=== PATIENT | male | born 1945 | race Caucasian/White ===

== ENCOUNTER → 2020-01-27 08:59 | Outpatient (BNVA) | payer MEDICARE, SELFPAY | PROVIDERS: PCP Internal Medicine; Referring Provider Internal Medicine; Visit Provider Dietitian, Registered | DX: Z76.89 Persons encountering health services in other specified circumstances (principal) ==

== ENCOUNTER 2020-04-27 08:25 | Outpatient (REF) | payer MEDICARE, SELFPAY ==
[2020-04-27 09:08] LABS: MANUAL DIFF FLAG NO
[2020-04-27 09:16] LABS: Basophils Absolute Auto 0.1 X10*3/uL (0.0-0.2); Basophils Percent Auto 0.8 % (0-2); Eosinophils Absolute Auto 0.1 X10*3/uL (0.0-0.4); Eosinophils Percent Auto 1.6 % (0-4); Hematocrit 47.1 % (42-52); Hemoglobin 15.6 g/dl (14.0-18.0); Imm Gran Abs Auto 0.04 X10*3/uL (0.00-0.03); Imm Gran Pct Auto 0.6 % (0.0-0.4); Lymphocytes Absolute Auto 1.1 X10*3/uL (1.2-4.9); Lymphocytes Percent Auto 17.6 % (20-40); Mean Corpuscular HGB Conc 33.1 g/dl (31.0-36.0); Mean Corpuscular Hemoglobin 29.7 pg (27.0-33.0); Mean Corpuscular Volume 89.5 fL (80-98); Mean Platelet Volume 9.2 fL (9.4-12.4); Monocytes Absolute Auto 0.7 X10*3/uL (0.1-1.2); Neutrophils Absolute Auto 4.2 X10*3/uL (2.0-8.3); Neutrophils Percent Auto 68.4 % (45-73); Platelet Count 217 X10*3/uL (160-400); Red Blood Count 5.26 X10*6/uL (4.60-5.80); Red Cell Distribution Width 13.5 % (11.0-16.0); White Blood Count 6.2 X10*3/uL (4.8-10.8)
[2020-04-27 09:43] LABS: Alanine Aminotransferase 21 U/L (0-40); Albumin Level 4.3 g/dL (3.5-5.0); Alkaline Phosphatase 61 U/L (39-117); Anion Gap 14 (12-20); Aspartate Amino Transferase 21 U/L (5-37); Bilirubin Total 1.6 mg/dL (0.0-1.0); Blood Urea Nitrogen 22 mg/dL (9-16); Calcium 9.1 mg/dL (8.4-10.2); Carbon Dioxide 29 mmol/L (22-29); Chloride 100 mmol/L (96-108); Cholesterol 177 mg/dL; Estimated Glomerular Filt Rate 51; Glucose Random 129 mg/dL (60-115); HDL Cholesterol 34 mg/dL; LDL Cholesterol Calculated 100 mg/dl; Potassium 4.3 mmol/l (3.3-5.1); Sodium 139 mmol/L (135-145); Total Protein 7.9 g/dL (6.5-8.0); Triglycerides 215 mg/dL
[2020-04-27 10:01] LABS: Creatinine Urine 162.92 mg/dL; Microalbum/Creatinine Ratio Ur 21.4 ug/mg cr
[2020-04-27 10:05] LABS: Free T4 (Free Thyroxine) 1.03 ng/dL (0.71-1.85); Thyroid Stimulating Hormone 3.24 uIU/mL (0.32-4.0)
[2020-04-27 10:12] LABS: Digoxin < 0.3 ng/mL (0.8-2.0)
[2020-04-27 10:21] LABS: Folate 6.5 ng/mL (> or = 4.0); Vitamin B12 597 pg/mL (200-900)
== END 2020-04-27 08:26 | disposition home or self-care (01) ==
LOC: HO.LAB 08:25
PROVIDERS: PCP Internal Medicine; Visit Provider Internal Medicine
DX: E78.00 Pure hypercholesterolemia, unspecified (principal); I48.0 Paroxysmal atrial fibrillation; E11.65 Type 2 diabetes mellitus with hyperglycemia; I42.9 Cardiomyopathy, unspecified
CPT/HCPCS: 36415; 80053; 80061; 80162; 82043; 82607; 82746; 84439; 84443; 85025

== ENCOUNTER → 2020-07-19 09:53 | Outpatient (BNVA) | payer MEDICARE, SELFPAY | PROVIDERS: PCP Internal Medicine; Visit Provider Dietitian, Registered | DX: E11.65 Type 2 diabetes mellitus with hyperglycemia (principal) | CPT/HCPCS: 97803 ==

== ENCOUNTER 2020-11-10 10:20 | Outpatient (REF) | payer MEDICARE, SELFPAY ==
[2020-11-10 10:29] LABS: MANUAL DIFF FLAG NO
[2020-11-10 10:33] LABS: Basophils Percent Auto 0.6 % (0-2); Eosinophils Absolute Auto 0.1 X10*3/uL (0.0-0.4); Eosinophils Percent Auto 1.6 % (0-4); Hematocrit 42.9 % (42-52); Hemoglobin 14.1 g/dl (14.0-18.0); Imm Gran Abs Auto 0.02 X10*3/uL (0.00-0.03); Imm Gran Pct Auto 0.4 % (0.0-0.4); Lymphocytes Absolute Auto 0.8 X10*3/uL (1.2-4.9); Lymphocytes Percent Auto 15.4 % (20-40); Mean Corpuscular HGB Conc 32.9 g/dl (31.0-36.0); Mean Corpuscular Hemoglobin 30.5 pg (27.0-33.0); Mean Corpuscular Volume 92.9 fL (80-98); Mean Platelet Volume 9.4 fL (9.4-12.4); Monocytes Absolute Auto 0.5 X10*3/uL (0.1-1.2); Monocytes Percent Auto 9.6 % (2-11); Neutrophils Absolute Auto 3.7 X10*3/uL (2.0-8.3); Neutrophils Percent Auto 72.4 % (45-73); Platelet Count 224 X10*3/uL (160-400); Red Blood Count 4.62 X10*6/uL (4.60-5.80); Red Cell Distribution Width 13.3 % (11.0-16.0); White Blood Count 5.1 X10*3/uL (4.8-10.8)
[2020-11-10 11:18] LABS: Alanine Aminotransferase 27 U/L (0-40); Albumin Level 3.8 g/dL (3.5-5.0); Alkaline Phosphatase 66 U/L (39-117); Anion Gap 13 (12-20); Aspartate Amino Transferase 25 U/L (5-37); Bilirubin Total 1.4 mg/dL (0.0-1.0); Blood Urea Nitrogen 18 mg/dL (9-16); Carbon Dioxide 29 mmol/L (22-29); Chloride 101 mmol/L (96-108); Estimated Glomerular Filt Rate 53; Glucose Random 203 mg/dL (60-115); Potassium 4.1 mmol/L (3.3-5.1); Sodium 139 mmol/L (135-145)
[2020-11-10 11:20] LABS: Estimated Average Glucose 306 mg/dL; Hemoglobin A1c % 12.3 %
[2020-11-10 11:38] LABS: T4 Thyroxine 7.5 ug/dL (4.5-12.0); Thyroid Stimulating Hormone 1.38 uIU/mL (0.32-4.0)
[2020-11-11 17:06] LABS: NT-proBNP 235 pg/mL
== END 2020-11-10 10:21 | disposition home or self-care (01) ==
LOC: HO.HVNA 10:20
PROVIDERS: Referring Provider Nurse Practitioner Family; Visit Provider Internal Medicine
DX: F41.1 Generalized anxiety disorder (principal); J45.909 Unspecified asthma, uncomplicated; E66.9 Obesity, unspecified; G47.33 Obstructive sleep apnea (adult) (pediatric); I48.91 Unspecified atrial fibrillation; K21.9 Gastro-esophageal reflux disease without esophagitis; E11.9 Type 2 diabetes mellitus without complications; I42.9 Cardiomyopathy, unspecified; N28.89 Other specified disorders of kidney and ureter
CPT/HCPCS: 36415; 80053; 83036; 83880; 84436; 84443; 85025

== ENCOUNTER 2020-11-16 11:34 | Outpatient (REF) | payer MEDICARE, SELFPAY ==
[2020-11-16 12:23] LABS: Anion Gap 13 (12-20); Blood Urea Nitrogen 18 mg/dL (9-16); Calcium 9.1 mg/dL (8.4-10.2); Carbon Dioxide 25 mmol/L (22-29); Chloride 103 mmol/L (96-108); Estimated Glomerular Filt Rate 51; Phosphorus 3.5 mg/dL (2.7-4.5); Sodium 137 mmol/L (135-145)
[2020-11-16 13:15] LABS: Renal w Reflex Lab Use Only Order verified
== END 2020-11-16 11:35 | disposition home or self-care (01) ==
LOC: HO.LNP 11:34
PROVIDERS: Visit Provider Internal Medicine Geriatric Medicine
DX: N18.30 Chronic kidney disease, stage 3 unspecified (principal)
CPT/HCPCS: 80051; 82310; 82565; 84100; 84520

== ENCOUNTER → 2020-11-24 09:27 | Outpatient (BNVA) | payer MEDICARE, SELFPAY | PROVIDERS: PCP Internal Medicine; Visit Provider Dietitian, Registered | DX: E11.65 Type 2 diabetes mellitus with hyperglycemia (principal) | CPT/HCPCS: 97803 ==

== ENCOUNTER → 2021-02-14 10:10 | Outpatient (BNVA) | payer MEDICARE, SELFPAY | PROVIDERS: PCP Internal Medicine; Visit Provider Dietitian, Registered | DX: E11.65 Type 2 diabetes mellitus with hyperglycemia (principal) | CPT/HCPCS: 97803 ==

== ENCOUNTER 2021-05-10 08:37 | Outpatient (REF) | payer MEDICARE, SELFPAY ==
[2021-05-10 09:16] LABS: MANUAL DIFF FLAG NO
[2021-05-10 10:16] LABS: Basophils Percent Auto 0.6 % (0-2); Eosinophils Absolute Auto 0.1 X10*3/uL (0.0-0.4); Eosinophils Percent Auto 1.7 % (0-4); Hematocrit 47.6 % (42.0-52.0); Hemoglobin 15.3 g/dl (14.0-18.0); Imm Gran Abs Auto 0.04 X10*3/uL (0.00-0.03); Imm Gran Pct Auto 0.6 % (0.0-0.4); Lymphocytes Percent Auto 16.1 % (20-40); Mean Corpuscular HGB Conc 32.1 g/dl (31.0-36.0); Mean Corpuscular Volume 90.3 fL (80.0-98.0); Mean Platelet Volume 9.2 fL (9.4-12.4); Monocytes Absolute Auto 0.7 X10*3/uL (0.1-1.2); Monocytes Percent Auto 10.9 % (2-11); Neutrophils Absolute Auto 4.5 x10*3/uL (2.0-8.3); Neutrophils Percent Auto 70.1 % (45-73); Platelet Count 231 X10*3/uL (160-400); Red Blood Count 5.27 X10*6/uL (4.60-5.80); Red Cell Distribution Width 14.6 % (11.0-16.0); White Blood Count 6.5 X10*3/uL (4.8-10.8)
[2021-05-10 10:33] LABS: B Type Natriuretic Peptide 48 pg/mL (<100)
[2021-05-10 10:35] LABS: Estimated Average Glucose 140 mg/dL; Hemoglobin A1c % 6.5 %
[2021-05-10 10:45] LABS: Alanine Aminotransferase 18 U/L (0-40); Albumin Level 4.3 g/dL (3.5-5.0); Alkaline Phosphatase 61 U/L (39-117); Anion Gap 14 (12-20); Aspartate Amino Transferase 18 U/L (5-37); Bilirubin Total 1.6 mg/dL (0.0-1.0); Blood Urea Nitrogen 25 mg/dL (9-16); Calcium 9.6 mg/dL (8.4-10.2); Carbon Dioxide 27 mmol/L (22-29); Chloride 103 mmol/L (96-108); Cholesterol 174 mg/dL; Estimated Glomerular Filt Rate 47; Glucose Random 122 mg/dL (60-115); HDL Cholesterol 31 mg/dL; LDL Cholesterol Calculated 109 mg/dl; Potassium 4.2 mmol/L (3.3-5.1); Sodium 140 mmol/L (135-145); Triglycerides 172 mg/dL
[2021-05-10 11:06] LABS: Free T4 (Free Thyroxine) 0.96 ng/dL (0.71-1.85); Thyroid Stimulating Hormone 2.16 uIU/mL (0.32-4.0)
[2021-05-10 11:10] LABS: Creatinine Urine 163.32 mg/dL
== END 2021-05-10 08:38 | disposition home or self-care (01) ==
LOC: HO.LAB 08:37
PROVIDERS: PCP Internal Medicine; Visit Provider Internal Medicine Nephrology
DX: E11.65 Type 2 diabetes mellitus with hyperglycemia (principal); I48.0 Paroxysmal atrial fibrillation; E78.00 Pure hypercholesterolemia, unspecified; N18.31 Chronic kidney disease, stage 3a
CPT/HCPCS: 36415; 80053; 80061; 83036; 83880; 84439; 84443; 85025

== ENCOUNTER → 2021-08-15 09:51 | Outpatient (BNVA) | payer MEDICARE, SELFPAY | PROVIDERS: PCP Internal Medicine; Visit Provider Dietitian, Registered | DX: E11.65 Type 2 diabetes mellitus with hyperglycemia (principal) | CPT/HCPCS: 97803 ==

== ENCOUNTER 2021-08-18 10:42 | Outpatient (REF) | payer MEDICARE, SELFPAY ==
--- NOTE | ~2021-08-18 | US_ITS ---
EXAMINATION: US VENOUS ULTRASOUND WITH DOPPLER LOWER EXTREMITY, LEFT CLINICAL INFORMATION: Left ankle effusion. COMPARISON: None TECHNIQUE: Ultrasound of the deep veins is performed from the hip to the calf with compression sonography and color and pulse Doppler assessment. Spectral analysis with color-flow imaging is performed. FINDINGS: There is normal venous compression and respiratory variation and augmented flow. The visualized common femoral vein, superficial femoral vein, profunda femoral vein, popliteal vein, and the trifurcation region shows no evidence of deep venous thrombosis. No left popliteal cyst. The subcutaneous soft tissues are unremarkable. If the patient's symptoms persist, followup ultrasound in 5 days 7 days might be of value to exclude proximal propagation from a non-visualized calf vein. US/US venous duplex LE LT IMPRESSION: No DVT demonstrated in the left lower extremity.
[2021-08-18 12:35] LABS: Uric Acid 7.9 mg/dL (3.4-7.0)
[2021-08-18 12:38] LABS: Alanine Aminotransferase 17 U/L (0-40); Albumin Level 4.1 g/dL (3.5-5.0); Alkaline Phosphatase 61 U/L (39-117); Anion Gap 15 (12-20); Aspartate Amino Transferase 16 U/L (5-37); Bilirubin Total 1.7 mg/dL (0.0-1.0); Blood Urea Nitrogen 20 mg/dL (9-16); Calcium 9.5 mg/dL (8.4-10.2); Carbon Dioxide 25 mmol/L (22-29); Chloride 105 mmol/L (96-108); Cholesterol 111 mg/dL; Estimated Glomerular Filt Rate 54; Glucose Random 170 mg/dL (60-115); HDL Cholesterol 31 mg/dL; LDL Cholesterol Calculated 50 mg/dl; Potassium 4.5 mmol/L (3.3-5.1); Sodium 140 mmol/L (135-145); Total Protein 7.5 g/dL (6.5-8.0); Triglycerides 151 mg/dL
== END 2021-08-18 10:43 | disposition home or self-care (01) ==
LOC: HO.US 10:42
PROVIDERS: PCP Internal Medicine; Visit Provider Nurse Practitioner Family
DX: M25.472 Effusion, left ankle (principal); I82.402 Acute embolism and thrombosis of unspecified deep veins of left lower extremity; E78.00 Pure hypercholesterolemia, unspecified
CPT/HCPCS: 36415; 80053; 80061; 84550; 93971

== ENCOUNTER 2021-09-14 11:27 | Outpatient (REF) | payer MEDICARE, SELFPAY ==
[2021-09-14 12:40] LABS: Uric Acid 10.4 mg/dL (3.4-7.0)
[2021-09-14 12:48] LABS: Erythrocyte Sedimentation Rate 52 MM/HR (0-15)
== END 2021-09-14 11:28 | disposition home or self-care (01) ==
LOC: HO.LAB 11:27
PROVIDERS: Absent Provider Podiatrist; PCP Internal Medicine; Visit Provider Internal Medicine
DX: M10.072 Idiopathic gout, left ankle and foot (principal)
CPT/HCPCS: 36415; 84550; 85652

== ENCOUNTER 2021-10-07 09:15 | Outpatient (REF) | payer MEDICARE, SELFPAY ==
--- NOTE | ~2021-10-07 | XR_ITS ---
EXAMINATION: XR ANKLE, LEFT CLINICAL INFORMATION: M25.472 - Effusion, left ankle COMPARISON: None TECHNIQUE: Left ankle is imaged in 4 views. FINDINGS: Lateral view shows irregularity proximal upper tarsal navicular with increased attenuation, suggesting sequela from prior injury, possibly subacute or older. There are no prior foot radiographs to confirmed chronicity. Recommend correlation with clinical impression and additional imaging with foot radiographs to further characterize. There is soft tissue swelling, greater on medial side. The malleoli are intact and the ankle mortise is symmetric. Talar dome appears normal and there is no visible osteochondral lesion. No tibiotalar joint narrowing, erosive change, or chondrocalcinosis. No visible ankle capsular effusion, although assessment limited areas lateral view slightly oblique. The posterior malleolus appears normal. There are posterior and plantar calcaneal spurs. PSA to contact covering provider. XR/XR ankle LT min 3V IMPRESSION: -Abnormal tarsal navicular with increased attenuation and irregularity suggesting sequela from prior trauma, indeterminate age. Recommend correlation with clinical impression and foot radiographs to further characterize. -Soft tissue swelling, greater medial side. The malleoli are intact. Ankle mortise is symmetric. Talar dome unremarkable. -Posterior and plantar calcaneal spurs.
== END 2021-10-07 09:16 | disposition home or self-care (01) ==
LOC: HO.XRAY 09:15
PROVIDERS: PCP Internal Medicine; Visit Provider Internal Medicine
DX: M25.472 Effusion, left ankle (principal)
CPT/HCPCS: 73610

== ENCOUNTER → 2021-11-24 09:16 | Outpatient (BNVA) | payer MEDICARE, SELFPAY | PROVIDERS: PCP Internal Medicine; Visit Provider Surgery Vascular Surgery | DX: I83.12 Varicose veins of left lower extremity with inflammation (principal); M25.562 Pain in left knee; M25.561 Pain in right knee; M25.572 Pain in left ankle and joints of left foot; M25.571 Pain in right ankle and joints of right foot | CPT/HCPCS: 99202 ==

== ENCOUNTER 2021-11-29 07:21 | Outpatient (REF) | payer MEDICARE, SELFPAY ==
--- NOTE | ~2021-11-29 | XR_ITS ---
EXAMINATION: XR ANKLE, LEFT CLINICAL INFORMATION: Left ankle pain. COMPARISON: 10/07/2021 TECHNIQUE: AP, lateral, and mortise views of the left ankle. FINDINGS: There is a large amount of edema seen about the lower leg and foot. There is again noted to be a comminuted fracture of the dorsal aspect of the navicular with what appears to be some increased bony absorption of fracture fragment as well as some loss of width with some increased sclerosis involving the navicular since study of 10/07/2021. There is no evidence of bony fusion of fracture fragments. There is malalignment of the tarsal bones with what appears to be some plantar subluxation of the cuneiforms by approximately 1 cm in respect to the navicular and dorsal tarsal bone. There is also question of a distal dorsal nondisplaced navicular fracture versus possible dorsal cortical erosion/resorption. The ankle mortise appears intact. Plantar and Achilles calcaneal spurs present. 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
== END 2021-11-29 07:22 | disposition home or self-care (01) ==
LOC: HO.HOSX 07:21
PROVIDERS: Visit Provider Physician Assistant
DX: M19.072 Primary osteoarthritis, left ankle and foot (principal)
CPT/HCPCS: 73610; 99202

== ENCOUNTER 2021-12-22 08:29 | Outpatient (REF) | payer MEDICARE, SELFPAY ==
[2021-12-22 09:53] LABS: Anion Gap 18 (12-20); Blood Urea Nitrogen 19 mg/dL (9-16); Calcium 9.4 mg/dL (8.4-10.2); Carbon Dioxide 24 mmol/L (22-29); Chloride 105 mmol/L (96-108); Estimated Glomerular Filt Rate 60; Potassium 4.6 mmol/L (3.3-5.1); Sodium 142 mmol/L (135-145)
== END 2021-12-22 08:30 | disposition home or self-care (01) ==
LOC: HO.LAB 08:29
PROVIDERS: PCP Internal Medicine; Visit Provider Internal Medicine Nephrology
DX: I12.9 Hypertensive chronic kidney disease with stage 1 through stage 4 chronic kidney disease, or unspecified chronic kidney disease (principal); N18.31 Chronic kidney disease, stage 3a
CPT/HCPCS: 36415; 80051; 82310; 82565; 84520

== ENCOUNTER 2022-01-09 09:43 | Outpatient (REF) | payer MEDICARE, SELFPAY ==
[2022-01-09 11:09] LABS: Uric Acid 9.6 mg/dL (3.4-7.0)
== END 2022-01-09 09:44 | disposition home or self-care (01) ==
LOC: HO.LAB 09:43
PROVIDERS: PCP Internal Medicine; Visit Provider Internal Medicine Nephrology
DX: N18.31 Chronic kidney disease, stage 3a (principal)
CPT/HCPCS: 36415; 84550

== ENCOUNTER 2022-01-12 12:49 | Outpatient (REF) | payer MEDICARE, SELFPAY ==
--- NOTE | ~2022-01-12 | US_ITS ---
EXAMINATION: US LOWER EXTREMITY VENOUS (REFLUX EXAM), BILATERAL CLINICAL INDICATION: Chronic venous insufficiency with lower extremity varicose veins COMPARISON: None. TECHNIQUE: Color flow triplex imaging and compression Doppler was performed to evaluate both the deep and the superficial systems bilaterally. To evaluate the superficial system, the examination was performed in the upright position. Color-flow Doppler ultrasound and compression ultrasound were utilized. In addition, maneuvers were utilized to demonstrate reflux. FINDINGS: 1. DEEP VENOUS ULTRASOUND OF THE RIGHT LOWER EXTREMITY: Common Femoral Vein: Compressible, normal respiratory variation and augmented flow. Femoral Vein: Compressible, normal color flow and augmentation. Popliteal Vein: Compressible, normal augmentation. Deep Reflux: There is no evidence of reflux in the deep system in either the common femoral vein or the popliteal vein. There is no evidence of a Roldan's cyst. 2. SUPERFICIAL ULTRASOUND WITH DOPPLER OF RIGHT LOWER EXTREMITY: GREAT SAPHENOUS VEIN: Saphenofemoral Junction: 0.67 cm; Reflux: 0 ms Proximal Thigh: 0.56 cm; Reflux: 0 ms Mid Thigh: 0.7 cm; Reflux: 812 ms Above Knee: 0.4 cm; Reflux: 0 ms At Knee: 0.34 cm; Reflux: 0 ms Below Knee: 0.41 cm; Reflux: 3368 ms Mid Calf: 0.29 cm; Reflux: 3372 ms Ankle: 0.43 cm; Reflux: 0 ms DUPLICATED MEDIAL GREAT SAPHENOUS VEIN: Diameter: None Imaged Reflux: NA DUPLICATED LATERAL GREAT SAPHENOUS VEIN: Diameter: 0.3 cm Reflux: None SMALL SAPHENOUS VEIN: Proximal: 0.3 cm; Reflux: 0 ms Distal: 0.2 cm; Reflux: 0 ms VEIN OF GIACOMINI: None Imaged. PERFORATORS: Location: Mid thigh Size: 0.4 cm Reflux: 3328 VARICOSITIES: Location: Proximal thigh and proximal calf Size: 0.3 to 0.5 cm Reflux: Ranging from 3076 - 2412 ms 3. DEEP VENOUS ULTRASOUND OF THE LEFT LOWER EXTREMITY: Common Femoral Vein: Compressible, normal respiratory variation and augmented flow. Femoral Vein: Compressible, normal color flow and augmentation. Popliteal Vein: Compressible, normal augmentation. Deep Reflux: There is no evidence of reflux in the deep system in either the common femoral vein or the popliteal vein. There is no evidence of a Roldan's cyst. 4. SUPERFICIAL ULTRASOUND WITH DOPPLER OF LEFT LOWER EXTREMITY: GREAT SAPHENOUS VEIN: Saphenofemoral Junction: 0.7 cm; Reflux: 0 ms Proximal Thigh: 0.5 cm; Reflux: 0 ms Mid Thigh: 0.5 cm; Reflux: 1928 ms Above Knee: 0.5 cm; Reflux: 3276 ms At Knee: 0.4 cm; Reflux: 0 ms Below Knee: 0.47 cm; Reflux: 3184 ms Mid Calf: 0.37 cm; Reflux: 3256 ms Ankle: 0.46 cm; Reflux: 3420 ms DUPLICATED MEDIAL GREAT SAPHENOUS VEIN: Diameter: None Imaged Reflux: NA DUPLICATED LATERAL GREAT SAPHENOUS VEIN: Diameter: 0.3 cm Reflux: None SMALL SAPHENOUS VEIN: Proximal: 0.4 cm; Reflux: 0 ms Distal: 0.1 cm; Reflux: 0 ms VEIN OF GIACOMINI: None Imaged. PERFORATORS: Location: Mid calf Size: 0.3 to 0.5 cm Reflux: 1140 ms VARICOSITIES: Location: Proximal thigh and throughout the calf Size: 0.2 to 0.4 cm Reflux: Greater than 3 seconds US/US venous duplex LE BI IMPRESSION: Right: Severe reflux within the right great saphenous vein below the knee with multiple varicosities as described above Left: Severe reflux and within the left great saphenous vein in the thigh and below the knee with multiple varicosities as described above
== END 2022-01-12 12:50 | disposition home or self-care (01) ==
LOC: HO.US 12:49
PROVIDERS: Visit Provider Surgery Vascular Surgery
DX: I83.12 Varicose veins of left lower extremity with inflammation (principal)
CPT/HCPCS: 93970

== ENCOUNTER → 2022-01-19 10:59 | Outpatient (BNVA) | payer MEDICARE, SELFPAY | PROVIDERS: PCP Internal Medicine; Visit Provider Surgery Vascular Surgery | DX: I83.12 Varicose veins of left lower extremity with inflammation (principal) | CPT/HCPCS: 99212 ==

== ENCOUNTER → 2022-01-27 07:26 | Outpatient (BNVA) | payer MEDICARE, SELFPAY | PROVIDERS: PCP Internal Medicine; Visit Provider Surgery Vascular Surgery | DX: I83.12 Varicose veins of left lower extremity with inflammation (principal); E11.10 Type 2 diabetes mellitus with ketoacidosis without coma; E11.65 Type 2 diabetes mellitus with hyperglycemia | CPT/HCPCS: 36482 ==

== ENCOUNTER 2022-01-30 10:02 | Outpatient (REF) | payer MEDICARE, SELFPAY ==
--- NOTE | ~2022-01-30 | US_ITS ---
EXAMINATION: US VENOUS ULTRASOUND WITH DOPPLER LOWER EXTREMITY, LEFT CLINICAL INFORMATION: This a 76-year-old male who is 3 days status post left VenaSeal closure of the great saphenous vein. COMPARISON: None TECHNIQUE: Ultrasound of the deep veins is performed from the hip to the calf with compression sonography and color and pulse Doppler assessment. Spectral analysis with color-flow imaging is performed. FINDINGS: There is normal venous compression and respiratory variation and augmented flow. The visualized common femoral vein, superficial femoral vein, profunda femoral vein, popliteal vein, and the trifurcation region shows no evidence of deep venous thrombosis. There is no significant popliteal fossa cyst. The great saphenous vein is closed beginning 3.3 cm below the saphenofemoral junction. There is no extension into the common femoral vein. US/US venous duplex LE LT IMPRESSION: 1. No DVT demonstrated in the left lower extremity. 2. The left great saphenous vein appears closed 3.3 cm below the saphenofemoral junction.
== END 2022-01-30 10:03 | disposition home or self-care (01) ==
LOC: HO.US 10:02
PROVIDERS: Visit Provider Surgery Vascular Surgery
DX: M79.605 Pain in left leg (principal)
CPT/HCPCS: 93971

== ENCOUNTER → 2022-02-09 09:40 | Outpatient (BNVA) | payer MEDICARE, SELFPAY | PROVIDERS: PCP Internal Medicine; Visit Provider Surgery Vascular Surgery | DX: I83.11 Varicose veins of right lower extremity with inflammation (principal); I83.12 Varicose veins of left lower extremity with inflammation | CPT/HCPCS: 99212 ==

== ENCOUNTER → 2022-02-15 10:04 | Outpatient (BNVA) | payer MEDICARE, SELFPAY | PROVIDERS: PCP Internal Medicine; Visit Provider Dietitian, Registered | DX: E11.65 Type 2 diabetes mellitus with hyperglycemia (principal) | CPT/HCPCS: 97803 ==

== ENCOUNTER 2022-03-05 11:03 | Emergency (ER) | payer MEDICARE, SELFPAY ==
--- NOTE | ~2022-03-05 | XR_ITS ---
EXAMINATION: XR CHEST CLINICAL INFORMATION: Cough and weakness. COMPARISON: Chest 09/21/2017 TECHNIQUE: 2 views of the chest were obtained. FINDINGS: The lungs are hyperinflated but clear. The heart size and pulmonary vascularity is normal. No gross bony abnormality. XR/XR chest 2V IMPRESSION: Hyperinflated lungs without acute process. No change since 2018
[2022-03-05 12:21] VITALS: BP 134/59; PULSE 66; RESP 18; TEMP 35.8; O2SAT 94; BMI 34.8
--- NOTE | 2022-03-05 12:23 | ED_ITS ---
HPI - General Adult General Chief complaint: Upper Respiratory Symptoms Stated complaint: coughing, sinus issues, diabetic Time Seen by Provider: 03/05/22 14:01 Source: patient and family () Mode of arrival: wheelchair Limitations: no limitations History of Present Illness HPI narrative: Patient is a 76 year old assigned male at with a history of DM presenting to the emergency department today with a cough and sinus pain. Patient states that since yesterday, he has been having sinus pain and a cough. Patient denies any dizziness, lightheadedness, abdominal pain, nausea, vomiting, fever, chills, blurry vision, double vision, loss of vision, chest pain, difficulty breathing, shortness of breath, back pain, night sweats, pain with urination, increased urinary frequency, increased urinary urgency, blood in his urine or stool, syncope or a near syncopal episode, recent trauma or falls, bowel incontinence, bladder incontinence, bowel retention, bladder retention, or any other complaint s at this time. Onset (ago): day(s) (1) Severity: mild Relieving factors: none Exacerbating factors: none Associated symptoms: cough Treatments prior to arrival: none Related Data Home Medications Medication Instructions Recorded Confirmed acetaminophen 650 mg 650 mg PO Q8H 01/30/20 10/06/21 tablet,extended release (Tylenol 8 Hour) albuterol sulfate 90 mcg/actuation 2 puff inhalation Q4-6H PRN 01/30/20 10/06/21 aerosol inhaler (ProAir HFA) digoxin 125 mcg (0.125 mg) tablet 125 mcg PO DAILY 01/30/20 10/06/21 (Digox) docusate sodium 100 mg capsule 100 mg PO DAILY 01/30/20 10/06/21 (Colace) allopurinol 100 mg tablet 100 mg PO DAILY 02/09/22 Previous Rx's Medication Instructions Recorded flash glucose scanning reader #1 ea 11/11/20 (FreeStyle Henry 14 Day [place]) flash glucose sensor (FreeStyle #6 kits 11/11/20 Henry 14 Day Sensor kit) calcium carbonate 600 mg calcium 600 mg PO DAILY #90 tabs 05/17/21 (1,500 mg) tablet bisoprolol fumarate 5 mg tablet 5 mg PO DAILY 90 days #90 tabs 05/20/21 atorvastatin 10 mg tablet 10 mg PO BEDTIME 30 days #90 tabs 07/01/21 torsemide 10 mg tablet 20 mg PO DAILY #180 tabs 07/01/21 amiodarone 200 mg tablet 200 mg PO DAILY #90 tabs 07/26/21 pen needle, diabetic 31 gauge x ##4 08/30/21/ (BD Ultra-Fine Mini Pen Needle) diclofenac sodium 1 % topical gel 2 g topical QID #100 grams 10/06/21 (Arthritis Pain (diclofenac)) rollator #1 ea 10/07/21 rollator #1 ea 10/11/21 insulin glargine 100 unit/mL (3 40 unit (0.4 mL) subcut QPM #45 mL 10/14/21 mL) subcutaneous pen (Lantus Solostar U-100 Insulin) apixaban 5 mg tablet (Eliquis) 5 mg PO BID #180 tabs 12/29/21 cholecalciferol (vitamin D3) 25 25 mcg PO DAILY #90 caps 12/29/21 mcg (1,000 unit) capsule (Vitamin D3) insulin lispro 100 unit/mL 5 unit (0.05 mL) subcut TID #15 mL 01/04/22 subcutaneous pen (Humalog KwikPen (U-100) Insulin) hydrocortisone 2.5 % lotion 1 appl topical TID PRN skin 02/01/22 irritation 14 days #118 mL lidocaine 5 % topical ointment 1 appl topical BID PRN pain #50 02/01/22 grams lisinopril 5 mg tablet 5 mg PO DAILY #90 tabs 02/01/22 eplerenone 25 mg tablet 25 mg PO DAILY 90 days #90 tabs 02/08/22 benzonatate 100 mg capsule 100 mg PO BID PRN cough 7 days #14 03/05/22 caps prednisone 20 mg tablet 20 mg PO DAILY 7 days #7 tabs 03/05/22 Allergies Allergy/AdvReac Type Severity Reaction Status Date / Time milk Allergy Unknown Unknown Verified 02/09/22 09:58 tramadol AdvReac Intermediate tremors Verified 02/09/22 09:58 salt Allergy Unknown unknown Uncoded 02/09/22 09:58 Review of Systems Constitutional: Constitutional: Reports no additional constitutional complaints, Denies chills, Denies fever(s) and Denies night sweats Eyes: Eyes: Reports no additional eye complaints, Denies blurry vision, Denies change in vision, Denies diplopia, Denies eye discharge, Denies loss of vision and Denies eye pain ENT: Denies dizziness Cardiovascular: Cardiovascular: Reports no additional cardiovascular complaints, Denies chest pain, Denies lightheadedness, Denies Loss of Consciousness and Denies dyspnea Respiratory: Respiratory: Reports no additional respiratory complaints, Reports cough and Denies dyspnea Gastrointestinal: Gastrointestinal: Reports no additional gastrointestinal complaints, Denies abdominal pain, Denies melena, Denies hematochezia, Denies change in bowel habits and Denies change in stool character Genitourinary: Genitourinary: Reports no additional male genitourinary complaints, Denies hematuria, Denies oliguria, Denies difficulty urinating, Denies dysuria, Denies urinary frequency, Denies urinary hesitancy, Denies urinary incontinence and Denies urinary urgency Musculoskeletal: Musculoskeletal: Reports no additional musculoskeletal complaints, Denies numbness and Denies tingling Neurologic: Denies dizziness, Denies loss of vision, Denies numbness and Denies tingling Psychiatric: Psychiatric: Reports no additional psychiatric complaints Endocrine: Endocrine: Reports no additional endocrine complaints Hematologic/Lymphatic: Hematologic/Lymphatic: Reports no additional hematologic/lymphatic complaints Allergic/Immunologic: Allergic/Immunologic: Reports no additional allergic/immunologic complaints [facility] Past Medical History Attestation statement: The following information was validated with the patient. Source: old records reviewed Medical History Asthma Atrial fibrillation Cardiomyopathy Cholelithiasis Congestive heart failure Diabetes mellitus type II, uncontrolled DKA (diabetic ketoacidosis) GERD (gastroesophageal reflux disease) Obesity (BMI 30-39.9) Obstructive sleep apnea Osteoarthritis of knee Prostate cancer Prostatism Pulmonary nodule Renal mass Skin cancer Tubular adenoma of colon Surgical History H/O arthroscopic knee surgery H/O left inguinal hernia repair History of left knee replacement History of prostatectomy Hx of tonsillectomy S/P laparoscopic surgery Family History Family History Father CAD (coronary artery disease) Hypertension CVD (cardiovascular disease) Mother Breast cancer Spleen cancer Brother Diabetes Social History Social History Housing: House Alcohol intake: current Alcohol intake frequency: holidays/special occasions only Patient Tobacco Use Status: Never used Tobacco e-Cigarette/Vaping Use: Never Used Second Hand Smoke Exposure: No Advance Directives: Yes Advance Directives Information Provided: Yes Advance Directives on File: No service: No Current occupational status: retired Cognitive needs: Yes (walker) Hearing needs: No Vision needs: Yes Physical Exam ED Vital Signs: Vital Signs - 24 hr 03/05/22 12:21 Temperature 96.4 F L Pulse Rate 66 Respiratory Rate 18 Blood Pressure 134/59 L Pulse Oximetry 94 Oxygen Delivery Method Room Air BMI result Body Mass Index 34.8 Const General: cooperative, no acute distress, alert and awake Nutritional Appearance: well nourished Orientation/consciousness: patient oriented x3 Limitations: no limitations HENMT Head: Yes normal to inspection and Yes atraumatic Ears: hearing grossly normal bilaterally and external ears normal General nose exam: Normal external nose present, no nasal discharge noted and no epistaxis Face and sinus: Yes normal facial exam, No abrasion and No laceration Mouth: Normal oral and palatal mucosa present, no drooling and no muffled voice Eyes General: appearance normal, both eyes and all related structures Periorbital: periorbital findings normal Eyelids: Yes eyelids normal Conjunctivae: conjunctivae normal Pupils: Equal, round and reactive pupils present EOM: EOMs intact bilaterally Neck Neck: Yes normal visual inspection, Yes full ROM and Yes no lymphadenopathy Chest Chest palpation & inspection: normal inspection of the chest Resp Effort & Inspection: normal respiratory effort and able to speak in complete sentences Auscultation: clear to auscultation bilaterally Cardio Rate: regular rate Rhythm: regular rhythm GI Inspection: Yes normal to inspection Neuro General: patient oriented x3 and moves all extremities Cranial nerves: Yes Equal, round and reactive pupils present Cognition (Neuro): normal cognition Motor exam (neuro): 5/5 motor strength present throughout Sensory Exam: Normal double simultaneous stimulation for sensation Coordination: [id number] test normal Extrem General: Yes normal to inspection, Yes full ROM and Yes capillary refill normal Psych Appearance: grossly normal Mental Status: mental status grossly normal Affect: normal affect Attitude: cooperative Thought process: Normal thought process present Thought content: Normal thought content present Insight: Good insight present (Psych) Course Course Course Narrative: RME performed by Daisy Sibley, PA-C. Patient is a 76 year old male complaining of sinus pressure / pain and a cough. COVID/RSV/Influenza swab and CXR ordered. Patient placed back in waiting room pending results and bed availability. Medical Decision Making MDM Narrative Medical decision making narrative: Patient is a 76 year old assigned male at with a history of DM presenting to the emergency department today with a cough and sinus pain. Patient's physical exam was unremarkable. Patient's COVID-19 test is positive. Patient's chest x-ray showed no acute process. I explained my physical exam findings as well as all test results to the patient and the patient's . I answered all questions asked by the patient and the patient's . Patient is prescribed Eliquis and is not a candidate for Paxlovid. I stressed the importance of the patient taking his medication as prescribed. I stressed the importance of the patient following up with his primary care provider. I stressed the importance of the patient returning to the emergency department immediately if his symptoms were to worsen or if he were to develop any dizziness, shortness of breath, difficulty breathing, chest pain, blurry vision, loss of vision, nausea, vomitin g, abdominal pain, fever, chills, back pain, or any other complaints. Patient and the patient's verbalized agreement and understanding with this treatment plan and discharge. Medical Records Medical records reviewed: Yes I reviewed the patient's medical records. Lab Data Lab results reviewed: Yes I reviewed the patient's lab results. Labs: Lab Results 03/05/22 Range/Units 12:30 Influenza Type A (PCR) NEGATIVE (Negative) Influenza Type B (PCR) NEGATIVE (Negative) RSV RNA Qual (PCR) NEGATIVE (Negative) SARS-CoV-2 RNA (RT-PCR) POSITIVE A (Negative) Imaging Data Chest x-ray: Attestation: I personally reviewed and interpreted this imaging study as follows: My impression: No acute process. Radiologist's impression: EXAMINATION: XR CHEST CLINICAL INFORMATION: Cough and weakness. COMPARISON: Chest 09/21/2017 TECHNIQUE: 2 views of the chest were obtained. FINDINGS: The lungs are hyperinflated but clear. The heart size and pulmonary vascularity is normal. No gross bony abnormality. XR/XR chest 2V IMPRESSION: Hyperinflated lungs without acute process. No change since 2018 Dictated By: Garo Perkins MD Signed By: Electronically signed by Garo Perkins MD 03/05/22 9446 Discharge Plan Discharge Clinical Impression: COVID-19 Patient Disposition: Home, Self-Care Instructions: COVID-19 (Coronavirus Disease 2019) (ED) Additional Instructions: Follow up with your primary care provider. Return to the emergency department immediately if your symptoms worsen or if you develop any dizziness, shortness of breath, difficulty breathing, chest pain, blurry vision, loss of vision, nausea, vomiting, abdominal pain, fever, chills, back pain, or any other complaints. Prescriptions: New benzonatate 100 mg capsule 100 mg PO BID PRN (Reason: cough) 7 Days Qty: 14 0RF prednisone 20 mg tablet 20 mg PO DAILY 7 Days Qty: 7 0RF No Action calcium carbonate 600 mg calcium (1,500 mg) tablet 600 mg PO DAILY Qty: 90 3RF torsemide 10 mg tablet 20 mg PO DAILY Qty: 180 3RF atorvastatin 10 mg tablet 10 mg PO BEDTIME 30 Days Qty: 90 3RF amiodarone 200 mg tablet 200 mg PO DAILY Qty: 90 3RF (DME) pen needle, diabetic [BD Ultra-Fine Mini Pen Needle] 31 gauge x 3/16 needle See Rx Instructions .ROUTE .COMPLEX Qty: 4 3RF Dose Instruction: USE DIRECTED TO INJECT INSULIN FOUR TIMES PER DAY Rx Instructions: USE DIRECTED TO INJECT INSULIN FOUR TIMES PER DAY (DME) rollator See Rx Instructions .Route .MEDSUPPLY Qty: 1 0RF Rx Instructions: As directed (DME) rollator See Rx Instructions .Route .MEDSUPPLY Qty: 1 0RF Rx Instructions: As directed insulin glargine [Lantus Solostar U-100 Insulin] 100 unit/mL (3 mL) insulin pen 40 unit subcut QPM Qty: 45 3RF cholecalciferol (vitamin D3) [Vitamin D3] 25 mcg (1,000 unit) capsule 25 mcg PO DAILY Qty: 90 3RF Eliquis 5 mg tablet 5 mg PO BID Qty: 180 3RF lisinopril 5 mg tablet 5 mg PO DAILY Qty: 90 3RF lidocaine 5 % ointment 1 appl topical BID PRN (Reason: pain) Qty: 50 5RF hydrocortisone 2.5 % lotion 1 appl topical TID PRN (Reason: skin irritation) 14 Days Qty: 118 0RF eplerenone 25 mg tablet 25 mg PO DAILY 90 Days Qty: 90 2RF acetaminophen [Tylenol 8 Hour] 650 mg tablet extended release 650 mg PO Q8H docusate sodium [Colace] 100 mg capsule 100 mg PO DAILY albuterol sulfate [ProAir HFA] 90 mcg/actuation HFA aerosol inhaler 2 puff inhalation Q4-6H PRN digoxin [Digox] 125 mcg (0.125 mg) tablet 125 mcg PO DAILY Rx Instructions: 1/2 a tab daily (DME) FreeStyle Henry 14 Day Sensor Kit See Rx Instructions .ROUTE .MEDSUPPLY Qty: 6 3RF Rx Instructions: As directed (DME) FreeStyle Henry 14 Day [place] Misc See Rx Instructions .ROUTE .MEDSUPPLY Qty: 1 0RF Rx Instructions: As directed bisoprolol fumarate 5 mg tablet 5 mg PO DAILY 90 Days Qty: 90 3RF diclofenac sodium [Arthritis Pain (diclofenac)] 1 % gel 2 g topical QID Qty: 100 0RF Rx Instructions: apply to single elbow, wrist or hand; for hand includes palm/fingers/back of hand insulin lispro [Humalog KwikPen Insulin] 100 unit/mL insulin pen 5 unit subcut TID Qty: 15 3RF Rx Instructions: or as directed allopurinol 100 mg tablet 100 mg PO DAILY Referrals: David Elena MD [Primary Care Provider] - Interventions: ED Discharge Assessment Last Done: 03/05/22 14:07 Discharge Date/Time: 03/05/22 14:15 Print Language: Mauritian
[2022-03-05 13:43] LABS: Influenza A PCR NEGATIVE (Negative); Influenza B PCR NEGATIVE (Negative); Resp Syncy Virus RNA Qual PCR NEGATIVE (Negative); SARS COV2 PCR INHOUSE POSITIVE (Negative)
[2022-03-06 07:17] LABS: Glucose, Whole Blood 256 mg/dL (60-115)
== END 2022-03-05 14:15 | disposition home or self-care (01) ==
LOC: HO.ED 14:10
PROVIDERS: Physician Assistant Medical; Emergency Provider Emergency Medicine; PCP Internal Medicine
DX: U07.1 COVID-19 (principal); R05.9 Cough, unspecified; R53.1 Weakness; Z79.899 Other long term (current) drug therapy
CPT/HCPCS: 0241U; 71046; 82947; 99282; 99283

== ENCOUNTER → 2022-06-16 08:27 | Outpatient (BNVA) | payer MEDICARE, SELFPAY | PROVIDERS: PCP Internal Medicine; Visit Provider Surgery Vascular Surgery | DX: I83.11 Varicose veins of right lower extremity with inflammation (principal) | CPT/HCPCS: 36482 ==

== ENCOUNTER 2022-06-19 13:00 | Outpatient (REF) | payer MEDICARE, SELFPAY ==
--- NOTE | ~2022-06-19 | US_ITS ---
EXAMINATION: US VENOUS ULTRASOUND WITH DOPPLER LOWER EXTREMITY, RIGHT CLINICAL INFORMATION: Status post right leg greater saphenous venaseal June 16, 2022 with pain. COMPARISON: January 30, 2022 TECHNIQUE: Ultrasound of the deep veins is performed from the hip to the calf with compression sonography and color and pulse Doppler assessment. Spectral analysis with color-flow imaging is performed. FINDINGS: There is normal venous compression and respiratory variation and augmented flow. The visualized common femoral vein, superficial femoral vein, profunda femoral vein, popliteal vein, and the trifurcation region shows no evidence of deep venous thrombosis. There is no significant popliteal fossa cyst. No popliteal artery aneurysm. The greater saphenous vein measures approximately 7 mm diameter and is occluded. Occlusion begins 7.7 cm from the saphenofemoral junction. US/US venous duplex LE RT IMPRESSION: No acute DVT demonstrated in the right lower extremity.
== END 2022-06-19 13:01 | disposition home or self-care (01) ==
LOC: HO.HMGCX 13:00
PROVIDERS: PCP Internal Medicine; Visit Provider Surgery Vascular Surgery
DX: M79.604 Pain in right leg (principal)
CPT/HCPCS: 93971

== ENCOUNTER → 2022-07-04 09:54 | Outpatient (BNVA) | payer MEDICARE, SELFPAY | PROVIDERS: PCP Internal Medicine; Visit Provider Surgery Vascular Surgery | DX: I83.11 Varicose veins of right lower extremity with inflammation (principal) | CPT/HCPCS: 99212 ==

== ENCOUNTER → 2022-07-20 09:47 | Outpatient (BNVA) | payer MEDICARE, SELFPAY | PROVIDERS: PCP Internal Medicine; Visit Provider Surgery Vascular Surgery | DX: I83.12 Varicose veins of left lower extremity with inflammation (principal); I83.11 Varicose veins of right lower extremity with inflammation | CPT/HCPCS: 99212 ==

== ENCOUNTER 2022-07-26 08:47 | Outpatient (REF) | payer MEDICARE, SELFPAY ==
[2022-07-26 09:20] LABS: MANUAL DIFF FLAG NO
[2022-07-26 10:35] LABS: Basophils Absolute Auto 0.1 X10*3/uL (0.0-0.2); Basophils Percent Auto 0.8 % (0-2); Eosinophils Absolute Auto 0.1 X10*3/uL (0.0-0.4); Eosinophils Percent Auto 2.1 % (0-4); Hematocrit 44.4 % (42.0-52.0); Hemoglobin 14.6 g/dl (14.0-18.0); Imm Gran Abs Auto 0.04 X10*3/uL (0.00-0.03); Imm Gran Pct Auto 0.7 % (0.0-0.4); Lymphocytes Percent Auto 15.9 % (20-40); Mean Corpuscular HGB Conc 32.9 g/dl (31.0-36.0); Mean Corpuscular Hemoglobin 29.5 pg (27.0-33.0); Mean Corpuscular Volume 89.7 fL (80.0-98.0); Mean Platelet Volume 9.5 fL (9.4-12.4); Monocytes Absolute Auto 0.6 X10*3/uL (0.1-1.2); Monocytes Percent Auto 10.1 % (2-11); Neutrophils Absolute Auto 4.3 x10*3/uL (2.0-8.3); Neutrophils Percent Auto 70.4 % (45-73); Platelet Count 220 X10*3/uL (160-400); Red Blood Count 4.95 X10*6/uL (4.60-5.80); Red Cell Distribution Width 14.8 % (11.0-16.0); White Blood Count 6.1 X10*3/uL (4.8-10.8)
[2022-07-26 10:58] LABS: B Type Natriuretic Peptide 47 pg/mL (<100)
[2022-07-26 11:03] LABS: Digoxin < 0.2 ng/mL (0.8-2.0)
[2022-07-26 11:12] LABS: Alanine Aminotransferase 22 U/L (0-40); Albumin Level 4.1 g/dL (3.5-5.0); Alkaline Phosphatase 71 U/L (39-117); Anion Gap 14 (12-20); Aspartate Amino Transferase 22 U/L (5-37); Blood Urea Nitrogen 18 mg/dL (9-16); Calcium 9.3 mg/dL (8.4-10.2); Carbon Dioxide 25 mmol/L (22-29); Chloride 105 mmol/L (96-108); Cholesterol 124 mg/dL; Estimated Glomerular Filt Rate 53; Glucose Random 169 mg/dL (60-115); HDL Cholesterol 30 mg/dL; LDL Cholesterol Calculated 54 mg/dl; Potassium 4.3 mmol/L (3.3-5.1); Sodium 140 mmol/L (135-145); Total Protein 7.2 g/dL (6.5-8.0); Triglycerides 202 mg/dL; Uric Acid 8.5 mg/dL (3.4-7.0)
[2022-07-26 11:27] LABS: Creatinine Urine 150.49 mg/dL; Microalbum/Creatinine Ratio Ur 20.5 ug/mg cr
[2022-07-26 11:43] LABS: Folate 6.1 ng/mL (> or = 4.0); Free T4 (Free Thyroxine) 0.92 ng/dL (0.71-1.85); Prostate Specific Antigen Scr 0.19 ng/mL (<0.05-4.0); Thyroid Stimulating Hormone 2.87 uIU/mL (0.32-4.0); Vitamin B12 752 pg/mL (200-900)
== END 2022-07-26 08:48 | disposition home or self-care (01) ==
LOC: HO.LAB 08:47
PROVIDERS: PCP Internal Medicine; Visit Provider Internal Medicine
DX: Z12.5 Encounter for screening for malignant neoplasm of prostate (principal); E78.00 Pure hypercholesterolemia, unspecified; I48.0 Paroxysmal atrial fibrillation; E11.65 Type 2 diabetes mellitus with hyperglycemia; Z79.899 Other long term (current) drug therapy
CPT/HCPCS: 36415; 80053; 80061; 80162; 82043; 82607; 82746; 83880; 84153; 84439; 84443; 84550; 85025

== ENCOUNTER 2022-11-17 09:20 | Outpatient (AMB) | payer MEDICARE, SELFPAY ==
--- NOTE | 2022-11-17 09:20 | MHC.PC.OV ---
Vital Signs 11/17/22 09:21 Height 6 ft 4 in Weight 282 lb BMI 34.3 BP 130/68 Blood Pressure Location Lt brachial Position Sitting Pulse 65 Pulse Source Pulse Oximeter Temp Source Skin Pulse Oximetry (%) 97 Oxygen Delivery Method Room Air Intake Visit Reasons: gout, impacted cerumen, atrial fib Astrobiologist Required: No Allergies milk Allergy (Unknown, Verified 11/17/22 09:22) Unknown tramadol Adverse Reaction (Intermediate, Verified 11/17/22 09:22) tremors salt Allergy (Unknown, Uncoded 11/17/22 09:22) unknown Medication List - Last Reconciled 11/17/22 by David Elena MD acetaminophen ER (Tylenol 8 Hour) 650 mg PO Q8H albuterol sulfate 90 mcg/actuation (Ventolin HFA) 2 puffs inhalation Q6H PRN allopurinol 200 mg PO DAILY amiodarone 200 mg PO DAILY apixaban (Eliquis) 5 mg PO BID atorvastatin 10 mg PO BEDTIME 30 days bisoprolol fumarate 5 mg PO DAILY 90 days calcium carbonate 600 mg PO DAILY cholecalciferol (vitamin D3) (Vitamin D3) 25 mcg PO DAILY dapagliflozin propanediol (Farxiga) 5 mg PO DAILY diclofenac sodium 1% (Arthritis Pain (diclofenac)) 2 grams topical QID docusate sodium (Colace) 100 mg PO DAILY eplerenone 25 mg PO DAILY 90 days flash glucose scanning reader ([employer]Style Henry 14 Day [place]) As directed flash glucose sensor (FreeStyle Henry 14 Day Sensor kit) As directed hydrocortisone 2.5% 1 appl topical TID PRN 14 days insulin glargine (Lantus Solostar U-100 Insulin) 42 units (0.42 mL) subcut QPM lidocaine 5% 1 appl topical BID PRN lisinopril 5 mg PO DAILY Novolog FlexPen U-100 Insulin (insulin aspart U-100) 5 units (0.05 mL) subcut TID NS oxycodone 5 mg PO Q8H PRN 3 days pen needle, diabetic (BD Ultra-Fine Mini Pen Needle) USE DIRECTED TO INJECT INSULIN FOUR TIMES PER DAY [rollator As directed] torsemide 20 mg (2 x 10 mg) PO DAILY Tobacco use date assessed: 11/17/22 Fall risk assessment: 1 Fall in past year Last assessed Fall Risk: 11/17/22 Dental Screening Dental Screen Date: 11/17/22 Did you have a dental visit in the last 12 months?: Yes Did you have a dental problem in the last 6 months where you did not have access to dental care?: No Was dental information given to patient?: Patient has dentist HPI gout, impacted cerumen, atrial fib HPI Details 77-year-old obese male with diabetes mellitus obstructive sleep apnea atrial fibrillation asthma hypercholesterolemia patient has a renal mass followed up by Urology and congestive heart failure last seen in August and blood work was requested patient is here for follow-up patient has been started on allopurinol for gout also. Review of the notes has a note from urology July 2022 blood pressure is controlled sodium restriction fluid restriction daily weights advised thyroid testing sleep study antidepressant and farxiga PFSH Medical History (Updated 08/17/22 @ 09:20 by David Elena MD) Asthma Atrial fibrillation Cardiomyopathy Cholelithiasis Congestive heart failure Diabetes mellitus type II, uncontrolled DKA (diabetic ketoacidosis) GERD (gastroesophageal reflux disease) Obesity (BMI 30-39.9) Obstructive sleep apnea Osteoarthritis of knee Prostate cancer Prostatism Pulmonary nodule Renal mass Skin cancer Tubular adenoma of colon Tubular adenoma of colon Surgical History H/O arthroscopic knee surgery H/O left inguinal hernia repair History of left knee replacement History of prostatectomy Hx of tonsillectomy S/P laparoscopic surgery Family History Father CAD (coronary artery disease) Hypertension CVD (cardiovascular disease) Mother Breast cancer Spleen cancer Brother Diabetes Social History Housing: House Alcohol intake: current Alcohol intake frequency: holidays/special occasions only Patient Tobacco Use Status: Never used Tobacco e-Cigarette/Vaping Use: Never Used Second Hand Smoke Exposure: No service: No Current occupational status: retired Cognitive needs: Yes (walker) Hearing needs: No Vision needs: Yes Questionnaire PHQ-9 Over the last 2 weeks, how often have you been bothered by any of the following problems? 1. Little interest or pleasure in doing things: several days 2. Feeling down, depressed, or hopeless: several days 3. Trouble falling or staying asleep, or sleeping too much: not at all 4. Feeling tired or having little energy: not at all 5. Poor appetite or overeating: not at all 6. Feeling bad about yourself - or that you are a failure or have let yourself or your family down: not at all 7. Trouble concentrating on things, such as reading the newspaper or watching television: not at all 8. Moving or speaking so slowly that other people could have noticed. Or the opposite - being so fidgety or restless that you have been moving around a lot more than usual: not at all 9. Thoughts that you would be better off or of hurting yourself in some way: not at all Total score: 2 Depression Screening Interpretation: Positive Source: Developed by Drs. Nicholas Dennis, Catherine Mireles, Anuj Magallanes and colleagues, with an educational qing from [employer]. Thrive Questionnaire Date Thrive assessed: 05/02/22 AUDIT C Alcohol Use Questionnaire (AUDIT-C) 1. How often do you have a drink containing alcohol?: Never 2. How many drinks containing alcohol do you have on a typical day when you are drinking?: 1 or 2 3. How often do you have six or more drinks on one occasion?: Never Total Score: 0 Score Reviewed/Action Taken: No DELROY-7 AMB Questionnaire DELROY-7 Date DELROY - 7 assessed: 05/02/22 Source: Developed by Drs. Nicholas Dennis, Catherine Mireles, Anuj Magallanes and colleagues, with an educational qing from [employer]. Physical exam (Primary Care) Vital Signs: Last Vital Signs Pulse 65 11/17/22 09:21 BP 130/68 11/17/22 09:21 Pulse Ox 97 11/17/22 09:21 Oxygen Delivery Method Room Air 11/17/22 09:21 BMI result Body Mass Index 34.3 Tobacco/Smoking Status: Tobacco use Status Tobacco use date assessed 11/17/22 11/17/22 09:31 Patient Tobacco Use Status Never used Tobacco 11/17/22 09:20 e-Cigarette/Vaping Use Never Used 11/17/22 09:20 PHQ-9: PHQ-9 Score PHQ-9: Total score 2 11/17/22 09:31 Depression Screening Interpretation: Positive Thrive Assessment: Date of Thrive Assessment Date Thrive assessed 05/02/22 11/17/22 09:20 Const General: alert; No acute distress Eyes Conjunctivae: conjunctivae normal Resp Auscultation: clear to auscultation bilaterally Cardio Rate: regular rate Rhythm: regular rhythm GI Inspection: Yes normal to inspection Extrem General: Yes normal to inspection and No edema Results AMB Hemoglobin A1c AMB Hemoglobin A1c 7.9 % Last Edit by RAJI Aceves on 11/17/22 09:39 Results Reviewed Results Reviewed: Laboratory Last Values Hgb A1c (Clinic) 7.9 % (4.0-6.0) H 11/17/22 09:20 Assessment and Plan Assessment & Plan (1) Type 2 diabetes mellitus with hyperglycemia: Code(s): E11.65 - Type 2 diabetes mellitus with hyperglycemia Plan: Decrease the amount of carbohydrate intake, pasta, bread, rice and potatoes are all sugar and that is aside from all the sweet stuff, remember that fruits are good but they are Sweet also. Hemoglobin A1c goal of less than 7.0 patient is on Lantus 40 units once a day NovoLog insulin sliding scale (2) GERD (gastroesophageal reflux disease): Code(s): K21.9 - Gastro-esophageal reflux disease without esophagitis Qualifiers: Esophagitis presence: without esophagitis Qualified Code(s): K21.9 - Gastro-esophageal reflux disease without esophagitis Plan: Avoid the foods that causes that usually spicy foods, tomato products, juices, coffee, soda and foods that your sensitive to. After eating do not lie down, allow 3-4 hours before in lie down. And keep the head of bed above 30 degrees to avoid the acid from going up. (3) Atrial fibrillation: Comment: December 2017, ejection fraction 20-25% doctor JOSS yang EF 25% dilated aorta [address] Riccardo Banegas congestive heart failure program cardioverted February 2018 Code(s): I48.91 - Unspecified atrial fibrillation Qualifiers: Atrial fibrillation type: paroxysmal Qualified Code(s): I48.0 - Paroxysmal atrial fibrillation Plan: Continue with anticoagulation and amiodarone (4) Obstructive sleep apnea: Comment: December 2017 cannot tolerate CPAP 01/2020 Code(s): G47.33 - Obstructive sleep apnea (adult) (pediatric) Plan: Discussed about CPAP treatment (5) Obesity (BMI 30-39.9): Code(s): E66.9 - Obesity, unspecified Plan: Diet and exercise (6) Asthma: Code(s): J45.909 - Unspecified asthma, uncomplicated Qualifiers: Asthma severity: mild Asthma persistence: intermittent Asthma complication type: uncomplicated Qualified Code(s): J45.20 - Mild intermittent asthma, uncomplicated Plan: Continue with inhaler as needed (7) Cardiomyopathy: Code(s): I42.9 - Cardiomyopathy, unspecified Plan: Control the cholesterol, weight, blood pressure, diabetes (8) Renal mass: Comment: April 2018, November left renal mass Code(s): N28.89 - Other specified disorders of kidney and ureter Plan: Continue to monitor (9) Generalized anxiety disorder: Code(s): F41.1 - Generalized anxiety disorder Plan: Continue with present medication (10) Impacted cerumen of both ears: Code(s): H61.23 - Impacted cerumen, bilateral (11) Hypercholesterolemia: Code(s): E78.00 - Pure hypercholesterolemia, unspecified Plan: Avoid fried foods, chicken skin, eggs, butter margarine, pastries and meat. Be it pork or beef they have a lot of cholesterol LDL goal of less than 70 and triglycerides of less than 150 July 2022 last blood work (12) Congestive heart failure: Code(s): I50.9 - Heart failure, unspecified Plan: We daily and continue with the diuretic (13) Peripheral vascular disease: Code(s): I73.9 - Peripheral vascular disease, unspecified Plan: When sitting down elevate the legs, exercise, and support stockings Orders: Orders B Type Natriuretic Peptide 1 Month N18.9 - Chronic kidney disease, unspecified Comprehensive Met. Panel 1 Month N18.9 - Chronic kidney disease, unspecified Free T4 (Free Thyroxine) 1 Month N18.9 - Chronic kidney disease, unspecified Thyroid Stimulating Hormone 1 Month N18.9 - Chronic kidney disease, unspecified Complete Blood Count Auto Diff 1 Month N18.9 - Chronic kidney disease, unspecified AMB Hemoglobin A1c Today E11.65 - Type 2 diabetes mellitus with hyperglycemia Medications: New dapagliflozin propanediol (Farxiga) 5 mg PO DAILY 30 tabs 4RF E11.65 - Type 2 diabetes mellitus with hyperglycemia sertraline 25 mg PO DAILY 30 tabs 4RF F41.1 - Generalized anxiety disorder Changed From insulin glargine (Lantus Solostar U-100 Insulin) 40 units (0.4 mL) subcut QPM 45 mL 3RF E11.65 - Type 2 diabetes mellitus with hyperglycemia To insulin glargine (Lantus Solostar U-100 Insulin) 42 units (0.42 mL) subcut QPM 45 mL 3RF E11.65 - Type 2 diabetes mellitus with hyperglycemia Coding Level of Care Code Est Pt Level 4 (27634) Diagnoses Type 2 diabetes mellitus with hyperglycemia E11.65 GERD (gastroesophageal reflux disease) K21.9 Esophagitis presence: without esophagitis Atrial fibrillation I48.0 Atrial fibrillation type: paroxysmal Obstructive sleep apnea G47.33 Obesity (BMI 30-39.9) E66.9 Asthma J45.20 Asthma severity: mild Asthma persistence: intermittent Asthma complication type: uncomplicated Cardiomyopathy I42.9 Renal mass N28.89 Generalized anxiety disorder F41.1 Impacted cerumen of both ears H61.23 Hypercholesterolemia E78.00 Congestive heart failure I50.9 Peripheral vascular disease I73.9 Additional Codes PHQ-9 - 73071 - PHQ-9 Billing: Y ([id number])
[2022-11-17 09:21] VITALS: BP 130/68; PULSE 65; O2SAT 97; BMI 34.3
== END 2022-11-17 10:57 | disposition home or self-care (01) ==
PROVIDERS: PCP Internal Medicine; Visit Provider Internal Medicine
DX: E11.65 Type 2 diabetes mellitus with hyperglycemia (principal); K21.9 Gastro-esophageal reflux disease without esophagitis; I48.0 Paroxysmal atrial fibrillation; J45.20 Mild intermittent asthma, uncomplicated; G47.33 Obstructive sleep apnea (adult) (pediatric); E66.9 Obesity, unspecified; I42.9 Cardiomyopathy, unspecified; N28.89 Other specified disorders of kidney and ureter; F41.1 Generalized anxiety disorder; H61.23 Impacted cerumen, bilateral; E78.00 Pure hypercholesterolemia, unspecified; I50.9 Heart failure, unspecified
CPT/HCPCS: 83036; 99214

== ENCOUNTER → 2023-02-07 11:49 | Outpatient (BNVA) | payer MEDICARE, SELFPAY | PROVIDERS: PCP Internal Medicine; Visit Provider Internal Medicine Nephrology | DX: N18.31 Chronic kidney disease, stage 3a (principal) | CPT/HCPCS: 99212 ==

== ENCOUNTER 2023-02-07 11:51 | Outpatient (AMB) | payer MEDICARE, SELFPAY ==
--- NOTE | 2023-02-07 12:29 | HO.NEPHOV_ITS ---
Intake Vital Signs 02/07/23 12:34 Height 6 ft 4 in Weight 288 lb 4 oz BMI 35.1 BP 110/70 Blood Pressure Location Lt brachial Position Sitting Pulse 62 Pulse Source Pulse Oximeter Intake Visit Reasons: CKD Biologics Specialist Required: No Accompanied by: Spouse Allergies milk Allergy (Unknown, Verified 02/07/23 12:30) Unknown tramadol Adverse Reaction (Intermediate, Verified 02/07/23 12:30) tremors salt Allergy (Unknown, Uncoded 11/17/22 09:22) unknown HPI HPI Comments History of Present Illness Details Ryley was seen in follow up for his CKD. His gout attacks are better on current dose of Allopurinol. He has been regularly followed up by his dry food products mixer( Dr Banegas). He has been having dry eyes which he thinks is due to medications. He has no SOB, PND or orthopnea. He denies chest pain, nausea, vomiting, diarrhea, dizziness. He is not taking any NSAID's. He has no hematuria or dysuria. His last serum creatinine was 1.3 Assessment & Plan Assessment & Plan (1) CKD (chronic kidney disease) stage 3, GFR 30-59 ml/min: Code(s): N18.30 - Chronic kidney disease, stage 3 unspecified Qualifiers: Chronic kidney disease stage 3 subtype: stage 3a (GFR 45-59) Qualified Code(s): N18.31 - Chronic kidney disease, stage 3a Plan Renal function had been stable Urine output good; Volume status optimal No NSAID's. Has H/O Gout- Uric acid ordered Hemodynamics stable; No medication changes done today Blood work ordered for F/U renal function More than 50 % time spent discussing all these Answered all his and his 's questions Follow up appointment given Orders: Orders Uric Acid Today M10.9 - Gout, unspecified, N18.30 - Chronic kidney disease, stage 3 unspecified Electrolytes Today N18.30 - Chronic kidney disease, stage 3 unspecified Blood Urea Nitrogen Today N18.30 - Chronic kidney disease, stage 3 unspecified Creatinine Today N18.30 - Chronic kidney disease, stage 3 unspecified Calcium Today N18.30 - Chronic kidney disease, stage 3 unspecified Coding Level of Care Code Est Pt Level 4 (47957) Diagnoses Stage 3a chronic kidney disease N18.31 Chronic kidney disease stage 3 subtype: stage 3a (GFR 45-59) [facility] Medical History (Updated 02/07/23 @ 14:50 by Darinel Allen MD) Gout Tubular adenoma of colon DKA (diabetic ketoacidosis) Cardiomyopathy Congestive heart failure Asthma Obesity (BMI 30-39.9) Pulmonary nodule Skin cancer Renal mass Obstructive sleep apnea Atrial fibrillation Tubular adenoma of colon Prostate cancer Osteoarthritis of knee GERD (gastroesophageal reflux disease) Prostatism Cholelithiasis Diabetes mellitus type II, uncontrolled Surgical History History of left knee replacement History of prostatectomy H/O left inguinal hernia repair S/P laparoscopic surgery Hx of tonsillectomy H/O arthroscopic knee surgery Family History Father CAD (coronary artery disease) Hypertension CVD (cardiovascular disease) Mother Breast cancer Spleen cancer Brother Diabetes Social History Housing: House Alcohol intake: current Alcohol intake frequency: holidays/special occasions only Patient Tobacco Use Status: Never used Tobacco e-Cigarette/Vaping Use: Never Used Second Hand Smoke Exposure: No service: No Current occupational status: retired Cognitive needs: Yes (walker) Hearing needs: No Vision needs: Yes
[2023-02-07 12:34] VITALS: BP 110/70; PULSE 62; BMI 35.1
== END 2023-02-07 13:10 | disposition home or self-care (01) ==
PROVIDERS: PCP Internal Medicine; Visit Provider Internal Medicine Nephrology
DX: N18.31 Chronic kidney disease, stage 3a (principal)
CPT/HCPCS: 99214

== ENCOUNTER 2023-02-26 09:23 | Outpatient (AMB) | payer MEDICARE, SELFPAY ==
[2023-02-26 09:26] VITALS: BP 118/62; PULSE 57; O2SAT 92; BMI 34.7
--- NOTE | 2023-02-26 09:26 | A.OFFPC_ITS ---
Vital Signs 02/26/23 09:26 Height 6 ft 4 in Weight 285 lb BMI 34.7 BP 118/62 Blood Pressure Location Lt brachial Position Sitting Pulse 57 Pulse Source Pulse Oximeter Pulse Oximetry (%) 92 Oxygen Delivery Method Room Air Intake Visit Reasons: 3mth f/u Research Geneticist Required: No Allergies milk Allergy (Unknown, Verified 02/26/23 09:34) Unknown tramadol Adverse Reaction (Intermediate, Verified 02/26/23 09:34) tremors salt Allergy (Unknown, Uncoded 02/26/23 09:34) unknown Medication List - Last Reconciled 02/26/23 by David Elena MD acetaminophen ER (Tylenol 8 Hour) 650 mg PO Q8H albuterol sulfate 90 mcg/actuation (Ventolin HFA) 2 puffs inhalation Q6H PRN allopurinol 200 mg PO DAILY amiodarone 200 mg PO DAILY apixaban (Eliquis) 5 mg PO BID atorvastatin 10 mg PO BEDTIME 30 days bisoprolol fumarate 5 mg PO DAILY 90 days calcium carbonate 600 mg PO DAILY cholecalciferol (vitamin D3) (Vitamin D3) 25 mcg PO DAILY dapagliflozin propanediol (Farxiga) 5 mg PO DAILY docusate sodium (Colace) 100 mg PO DAILY eplerenone 25 mg PO DAILY 90 days flash glucose scanning reader (OncopeptidesStyle Henry 14 Day [place]) As directed flash glucose sensor (FreeStyle Henry 14 Day Sensor kit) As directed insulin glargine (Lantus Solostar U-100 Insulin) 42 units (0.42 mL) subcut QPM lidocaine 5% 1 appl topical BID PRN lisinopril 5 mg PO DAILY Novolog FlexPen U-100 Insulin (insulin aspart U-100) 5 units (0.05 mL) subcut TID NS pen needle, diabetic (BD Ultra-Fine Mini Pen Needle) USE DIRECTED TO INJECT INSULIN FOUR TIMES PER DAY [rollator As directed] sertraline 25 mg PO DAILY torsemide 20 mg (2 x 10 mg) PO DAILY Tobacco use date assessed: 02/26/23 Fall risk assessment: No Falls in past year Last assessed Fall Risk: 02/26/23 Dental Screening Dental Screen Date: 02/26/23 Did you have a dental visit in the last 12 months?: No Did you have a dental problem in the last 6 months where you did not have access to dental care?: No HPI 3mth f/u HPI Details 77-year-old obese male with diabetes chong litus GERD atrial fibrillation obstructive sleep apnea asthma cardiomyopathy renal mass generalized anxiety disorder hypercholesterolemia congestive heart failure and peripheral vascular disease last seen in November 2022. Patient is here for follow-up. Patient is due for colonoscopy. Review of the notes has seen Nephrology diagnosis of chronic kidney disease stage 3 a stable renal function. Patient has seen urology also for the prostate cancer and renal mass noted slowly rising PSA will continue to follow-up due for imaging next year [facility] Medical History (Updated 02/07/23 @ 14:50 by Darinel Allen MD) Gout Tubular adenoma of colon DKA (diabetic ketoacidosis) Cardiomyopathy Congestive heart failure Asthma Obesity (BMI 30-39.9) Pulmonary nodule Skin cancer Renal mass Obstructive sleep apnea Atrial fibrillation Tubular adenoma of colon Prostate cancer Osteoarthritis of knee GERD (gastroesophageal reflux disease) Prostatism Cholelithiasis Diabetes mellitus type II, uncontrolled Surgical History History of left knee replacement History of prostatectomy H/O left inguinal hernia repair S/P laparoscopic surgery Hx of tonsillectomy H/O arthroscopic knee surgery Family History Father CAD (coronary artery disease) Hypertension CVD (cardiovascular disease) Mother Breast cancer Spleen cancer Brother Diabetes Social History Housing: House Alcohol intake: current Alcohol intake frequency: holidays/special occasions only Patient Tobacco Use Status: Never used Tobacco e-Cigarette/Vaping Use: Never Used Second Hand Smoke Exposure: No service: No Current occupational status: retired Cognitive needs: Yes (walker) Hearing needs: No Vision needs: Yes Questionnaire Thrive Questionnaire Date Thrive assessed: 05/02/22 AUDIT C Alcohol Use Questionnaire (AUDIT-C) 1. How often do you have a drink containing alcohol?: Never 2. How many drinks containing alcohol do you have on a typical day when you are drinking?: 1 or 2 3. How often do you have six or more drinks on one occasion?: Never Total Score: 0 Score Reviewed/Action Taken: No DELROY-7 AMB Questionnaire DELROY-7 Date DELROY - 7 assessed: 05/02/22 Source: Developed by Drs. Nicholas Dennis, Catherine Mireles, Anuj Magallanes and colleagues, with an educational qing from 20x200. Physical exam (Primary Care) Vital Signs: Last Vital Signs Pulse 57 02/26/23 09:26 BP 118/62 02/26/23 09:26 Pulse Ox 92 02/26/23 09:26 Oxygen Delivery Method Room Air 02/26/23 09:26 BMI result Body Mass Index 34.7 Tobacco/Smoking Status: Tobacco use Status Tobacco use date assessed 02/26/23 02/26/23 09:27 Patient Tobacco Use Status Never used Tobacco 02/26/23 09:27 e-Cigarette/Vaping Use Never Used 02/26/23 09:27 Thrive Assessment: Date of Thrive Assessment Date Thrive assessed 05/02/22 02/26/23 09:27 Const General: alert; No acute distress Eyes Conjunctivae: conjunctivae normal Resp Auscultation: clear to auscultation bilaterally Cardio Rate: regular rate Rhythm: regular rhythm GI Inspection: Yes normal to inspection Extrem General: Yes normal to inspection and No edema Office Procedures Flu Questionnaire Does the patient have a severe egg allergy?: No Does the patient have severe life threatening allergies?: No Does the patient have a fever or illness today?: No Has the patient ever had Guillain-Jeffrey Syndrome?: No Has the patient ever had any past reaction to a flu shot?: No Results AMB Hemoglobin A1c AMB Hemoglobin A1c 7.1 % Last Edit by RAJI Aceves on 02/26/23 09:47 Immunizations flu vacc [id number] 6mos up(PF) 60 mcg(15 mcgx4)/0.5 mL IM syringe Performing Provider: David Elena MD [facility] [place] Administered by: RAJI Aceves on 02/26/23 09:48 Dose Route Admin Location Dispensed Lot Number Expiration Date NDC Skin Care Therapist 0.5 mL IM Left Deltoid 0.5 mL [id number] 10/07/23 21923-528-43 [employer] VIS Given Date VIS Provided VIS Publication Date 02/26/23 Single Vaccine 20 Eligibility Eligibility Date Funding Source Not VFC Eligible 02/26/23 Private Results Reviewed Results Reviewed: Laboratory Last Values Hgb A1c (Clinic) 7.1 % (4.0-6.0) H 02/26/23 09:28 Assessment and Plan Assessment & Plan (1) Atrial fibrillation: Comment: December 2017, ejection fraction 20-25% doctor JOSS, yang EF 25% dilated aorta [address] Riccardo Banegas congestive heart failure program cardioverted February 2018 Code(s): I48.91 - Unspecified atrial fibrillation Qualifiers: Atrial fibrillation type: paroxysmal Qualified Code(s): I48.0 - Paroxysmal atrial fibrillation Plan: Continue with anticoagulation with Eliquis will need blood work (2) Obstructive sleep apnea: Comment: December 2017 cannot tolerate CPAP 01/2020 Code(s): G47.33 - Obstructive sleep apnea (adult) (pediatric) (3) GERD (gastroesophageal reflux disease): Code(s): K21.9 - Gastro-esophageal reflux disease without esophagitis Qualifiers: Esophagitis presence: without esophagitis Qualified Code(s): K21.9 - Gastro-esophageal reflux disease without esophagitis Plan: Avoid the foods that causes that usually spicy foods, tomato products, juices, coffee, soda and foods that your sensitive to. After eating do not lie down, allow 3-4 hours before in lie down. And keep the head of bed above 30 degrees to avoid the acid from going up. (4) Obesity (BMI 30-39.9): Code(s): E66.9 - Obesity, unspecified Plan: Diet and exercise (5) Cardiomyopathy: Code(s): I42.9 - Cardiomyopathy, unspecified Plan: Patient follows up with Cardiology and continue with medication (6) Asthma: Code(s): J45.909 - Unspecified asthma, uncomplicated Qualifiers: Asthma severity: mild Asthma persistence: intermittent Asthma complication type: uncomplicated Qualified Code(s): J45.20 - Mild intermittent asthma, uncomplicated Plan: Continue with inhaler (7) Generalized anxiety disorder: Code(s): F41.1 - Generalized anxiety disorder Plan: Continue with present medication (8) Type 2 diabetes mellitus with hyperglycemia: Code(s): E11.65 - Type 2 diabetes mellitus with hyperglycemia Plan: Decrease the amount of carbohydrate intake, pasta, bread, rice and potatoes are all sugar and that is aside from all the sweet stuff, remember that fruits are good but they are Sweet also. Patient takes Farxiga with Lantus NovoLog (9) Hypercholesterolemia: Code(s): E78.00 - Pure hypercholesterolemia, unspecified Plan: Avoid fried foods, chicken skin, eggs, butter margarine, pastries and meat. Be it pork or beef they have a lot of cholesterol patient is on atorvastatin 10 mg once a day (10) Tubular adenoma of colon: Comment: 2018 Code(s): D12.6 - Benign neoplasm of colon, unspecified Plan: Patient is due for colon test (11) Peripheral vascular disease: Code(s): I73.9 - Peripheral vascular disease, unspecified Plan: When sitting down elevate the legs, exercise, and support stockings (12) CKD (chronic kidney disease) stage 3, GFR 30-59 ml/min: Code(s): N18.30 - Chronic kidney disease, stage 3 unspecified Qualifiers: Chronic kidney disease stage 3 subtype: stage 3a (GFR 45-59) Qualified Code(s): N18.31 - Chronic kidney disease, stage 3a Plan: Avoid NSAIDs, keep well-hydrated patient follows up with Nephrology (13) Congestive heart failure: Code(s): I50.9 - Heart failure, unspecified Plan: Weigh daily on a prior known Farxiga torsemide Orders: Orders AMB Hemoglobin A1c Today E11.65 - Type 2 diabetes mellitus with hyperglycemia Influenza [id number] Immunization Today Z23 - Encounter for immunization Referrals Gastroenterology Referral D12.6 - Benign neoplasm of colon, unspecified Medications: Refilled calcium carbonate 600 mg PO DAILY 90 tabs 3RF D12.6 - Benign neoplasm of colon, unspecified torsemide 20 mg (2 x 10 mg) PO DAILY 180 tabs 3RF D12.6 - Benign neoplasm of colon, unspecified sertraline 25 mg PO DAILY 90 tabs 3RF F41.1 - Generalized anxiety disorder allopurinol 200 mg PO DAILY 90 tabs 2RF atorvastatin 10 mg PO BEDTIME 30 days 90 tabs 3RF E78.00 - Pure hypercholesterolemia, unspecified dapagliflozin propanediol (Farxiga) 5 mg PO DAILY 90 tabs 1RF E11.65 - Type 2 diabetes mellitus with hyperglycemia bisoprolol fumarate 5 mg PO DAILY 90 days 90 tabs 3RF I42.9 - Cardiomyopathy, unspecified Coding Level of Care Code Est Pt Level 4 (73083) Diagnoses Paroxysmal atrial fibrillation I48.0 Atrial fibrillation type: paroxysmal Obstructive sleep apnea G47.33 Gastroesophageal reflux disease without esophagitis K21.9 Esophagitis presence: without esophagitis Obesity (BMI 30-39.9) E66.9 Cardiomyopathy I42.9 Mild intermittent asthma without complication J45.20 Asthma severity: mild Asthma persistence: intermittent Asthma complication type: uncomplicated Generalized anxiety disorder F41.1 Type 2 diabetes mellitus with hyperglycemia E11.65 Hypercholesterolemia E78.00 Tubular adenoma of colon D12.6 Peripheral vascular disease I73.9 Stage 3a chronic kidney disease N18.31 Chronic kidney disease stage 3 subtype: stage 3a (GFR 45-59) Congestive heart failure I50.9
== END 2023-02-26 10:32 | disposition home or self-care (01) ==
PROVIDERS: PCP Internal Medicine; Visit Provider Internal Medicine
DX: E11.65 Type 2 diabetes mellitus with hyperglycemia (principal); Z23 Encounter for immunization
CPT/HCPCS: 83036; 90471; 90686; 99214

== ENCOUNTER 2023-05-09 07:38 | Outpatient (REF) | payer MEDICARE, SELFPAY ==
[2023-05-09 08:00] LABS: MANUAL DIFF FLAG NO
[2023-05-09 08:12] LABS: Basophils Absolute Auto 0.1 X10*3/uL (0.0-0.2); Basophils Percent Auto 0.7 % (0-2); Eosinophils Absolute Auto 0.1 X10*3/uL (0.0-0.4); Eosinophils Percent Auto 1.2 % (0-4); Hematocrit 49.1 % (42.0-52.0); Hemoglobin 15.6 g/dl (14.0-18.0); Imm Gran Abs Auto 0.06 X10*3/uL (0.00-0.03); Imm Gran Pct Auto 0.9 % (0.0-0.4); Lymphocytes Absolute Auto 0.9 X10*3/uL (1.2-4.9); Lymphocytes Percent Auto 13.2 % (20-40); Mean Corpuscular HGB Conc 31.8 g/dl (31.0-36.0); Mean Corpuscular Hemoglobin 28.4 pg (27.0-33.0); Mean Corpuscular Volume 89.4 fL (80.0-98.0); Mean Platelet Volume 9.2 fL (9.4-12.4); Monocytes Absolute Auto 0.7 X10*3/uL (0.1-1.2); Monocytes Percent Auto 10.7 % (2-11); Neutrophils Percent Auto 73.3 % (45-73); Platelet Count 221 X10*3/uL (160-400); Red Blood Count 5.49 X10*6/uL (4.60-5.80); Red Cell Distribution Width 15.5 % (11.0-16.0); White Blood Count 6.8 X10*3/uL (4.8-10.8)
[2023-05-09 08:24] LABS: Estimated Average Glucose 143 mg/dL; Hemoglobin A1c % 6.6 % (<6.0)
[2023-05-09 08:40] LABS: Blood Urea Nitrogen 25 mg/dL (9-16); Calcium 9.9 mg/dL (8.4-10.2); Uric Acid 5.2 mg/dL (3.4-7.0)
[2023-05-09 08:43] LABS: B Type Natriuretic Peptide 54 pg/mL (<100)
[2023-05-09 08:51] LABS: Alanine Aminotransferase 22 U/L (0-40); Albumin Level 4.2 g/dL (3.5-5.0); Alkaline Phosphatase 79 U/L (39-117); Anion Gap 14 (12-20); Aspartate Amino Transferase 20 U/L (5-37); Bilirubin Total 1.6 mg/dL (0.0-1.0); Blood Urea Nitrogen 25 mg/dL (9-16); Calcium 9.7 mg/dL (8.4-10.2); Carbon Dioxide 28 mmol/L (22-29); Chloride 104 mmol/L (96-108); Estimated Glomerular Filt Rate 51; Glucose Random 138 mg/dL (60-115); Potassium 4.3 mmol/L (3.3-5.1); Sodium 142 mmol/L (135-145); Total Protein 8.1 g/dL (6.5-8.0); Uric Acid 5.2 mg/dL (3.4-7.0)
[2023-05-09 09:01] LABS: Free T4 (Free Thyroxine) 0.85 ng/dL (0.71-1.85); Thyroid Stimulating Hormone 3.12 uIU/mL (0.32-4.0)
== END 2023-05-09 07:39 | disposition home or self-care (01) ==
LOC: HO.LAB 07:38
PROVIDERS: PCP Internal Medicine; Visit Provider Internal Medicine Nephrology
DX: E11.65 Type 2 diabetes mellitus with hyperglycemia (principal); N18.30 Chronic kidney disease, stage 3 unspecified; M10.9 Gout, unspecified
CPT/HCPCS: 36415; 80053; 82310; 83036; 83880; 84439; 84443; 84520; 84550; 85025

== ENCOUNTER 2023-05-16 09:31 | Outpatient (AMB) | payer MEDICARE, SELFPAY ==
--- NOTE | 2023-05-16 09:38 | HO.NEPHOV_ITS ---
HPI HPI Comments History of Present Illness Details Ryley was seen in follow up for his CKD. His gout attacks are better on current dose of Allopurinol. He has been regularly followed up by his furniture removalist( Dr Banegas). He has no SOB, PND or orthopnea. He denies chest pain, nausea, vomiting, diarrhea, dizziness. He is not taking any NSAID's. He has no hematuria or dysuria. His last serum creatinine was 1.3 PFSH Medical History (Updated 05/16/23 @ 09:40 by Darinel Allen MD) Gout Tubular adenoma of colon DKA (diabetic ketoacidosis) Cardiomyopathy Congestive heart failure Asthma Obesity (BMI 30-39.9) Pulmonary nodule Skin cancer Renal mass Obstructive sleep apnea Atrial fibrillation Tubular adenoma of colon Prostate cancer Osteoarthritis of knee GERD (gastroesophageal reflux disease) Prostatism Cholelithiasis Diabetes mellitus type II, uncontrolled Surgical History History of left knee replacement History of prostatectomy H/O left inguinal hernia repair S/P laparoscopic surgery Hx of tonsillectomy H/O arthroscopic knee surgery Family History Father CAD (coronary artery disease) Hypertension CVD (cardiovascular disease) Mother Breast cancer Spleen cancer Brother Diabetes Social History Housing: House Alcohol intake: current Alcohol intake frequency: holidays/special occasions only Patient Tobacco Use Status: Never used Tobacco e-Cigarette/Vaping Use: Never Used Second Hand Smoke Exposure: No service: No Current occupational status: retired Cognitive needs: Yes (walker) Hearing needs: No Vision needs: Yes Vital Signs 05/16/23 09:39 Height 6 ft 4 in Weight 290 lb 6 oz BMI 35.3 BP 122/60 Blood Pressure Location Lt brachial Position Sitting Pulse 60 Pulse Source Pulse Oximeter Physical Exam Const General: comfortable and no acute distress Orientation/consciousness: patient oriented x3 HEENT Head: Yes normocephalic Mouth: Normal oral and palatal mucosa present Eyes EOM: EOMs intact bilaterally Neck Neck: Yes supple Resp Auscultation: clear to auscultation bilaterally Cardio Jugular venous distension: no JVD Rate: regular rate Heart sounds: Murmur heart sound present GI Palpation (GI): Soft to palpation Auscultation: normal bowel sounds General: Yes no CVA tenderness Back/Spine/Pelvis Back: no CVA tenderness Skin General skin exam: no rashes or lesions noted Neuro General: patient oriented x3 and moves all extremities Extrem General: Yes no pedal edema Assessment & Plan Assessment & Plan (1) CKD (chronic kidney disease) stage 3, GFR 30-59 ml/min: Code(s): N18.30 - Chronic kidney disease, stage 3 unspecified Qualifiers: Chronic kidney disease stage 3 subtype: stage 3a (GFR 45-59) Qualified Code(s): N18.31 - Chronic kidney disease, stage 3a (2) Type 2 diabetes mellitus with hyperglycemia: Code(s): E11.65 - Type 2 diabetes mellitus with hyperglycemia Qualifiers: Diabetes mellitus half-way insulin use: without half-way use Qualified Code(s): E11.65 - Type 2 diabetes mellitus with hyperglycemia (3) Renal mass: Comment: April 2018, November left renal mass Code(s): N28.89 - Other specified disorders of kidney and ureter Plan Renal function had been stable Urine output good; Volume status optimal; On Farxiga No NSAID's. Has H/O Gout; Dayron follows renal mass Hemodynamics stable; No medication changes done today Blood work ordered for F/U renal function More than 50 % time spent discussing all these Answered all his and his 's questions Follow up appointment given Orders: Orders Calcium Today N18.30 - Chronic kidney disease, stage 3 unspecified Electrolytes Today N18.30 - Chronic kidney disease, stage 3 unspecified Blood Urea Nitrogen Today N18.30 - Chronic kidney disease, stage 3 unspecified Creatinine Today N18.30 - Chronic kidney disease, stage 3 unspecified Uric Acid 4 Months N18.30 - Chronic kidney disease, stage 3 unspecified Coding Level of Care Code Est Pt Level 3 (48516) Diagnoses Stage 3a chronic kidney disease N18.31 Chronic kidney disease stage 3 subtype: stage 3a (GFR 45-59) Type 2 diabetes mellitus with hyperglycemia, without long-term current use of insulin E11.65 Diabetes mellitus terminal gauger supervisor insulin use: without terminal gauger supervisor use Renal mass N28.89 Results Reviewed Nephrology Results: Hgb 15.6 g/dl (14.0-18.0) 05/09/23 WBC 6.8 X10*3/uL (4.8-10.8) 05/09/23 Plt Count 221 X10*3/uL (160-400) 05/09/23 Sodium 142 mmol/L (135-145) 05/09/23 Potassium 4.3 mmol/L (3.3-5.1) 05/09/23 Chloride 104 mmol/L (96-108) 05/09/23 Carbon Dioxide 28 mmol/L (22-29) 05/09/23 BUN 25 mg/dL (9-16) H 05/09/23 Creatinine 1.36 mg/dL (0.5-1.4) 05/09/23 Calcium 9.7 mg/dL (8.4-10.2) 05/09/23 Urine Creatinine 150.49 mg/dL 07/26/22
[2023-05-16 09:39] VITALS: BP 122/60; PULSE 60; BMI 35.3
== END 2023-05-16 10:01 | disposition home or self-care (01) ==
PROVIDERS: PCP Internal Medicine; Visit Provider Internal Medicine Nephrology
DX: N18.31 Chronic kidney disease, stage 3a (principal); E11.65 Type 2 diabetes mellitus with hyperglycemia; N28.89 Other specified disorders of kidney and ureter
CPT/HCPCS: 99213

== ENCOUNTER → 2023-05-16 09:31 | Outpatient (BNVA) | payer MEDICARE, SELFPAY | PROVIDERS: PCP Internal Medicine; Visit Provider Internal Medicine Nephrology | DX: E11.65 Type 2 diabetes mellitus with hyperglycemia (principal); E11.22 Type 2 diabetes mellitus with diabetic chronic kidney disease; N18.31 Chronic kidney disease, stage 3a; N28.89 Other specified disorders of kidney and ureter | CPT/HCPCS: 99212 ==

== ENCOUNTER 2023-05-30 08:49 | Outpatient (AMB) | payer MEDICARE, SELFPAY ==
[2023-05-30 08:56] VITALS: BP 114/68; PULSE 77; O2SAT 95; BMI 34.9
--- NOTE | 2023-05-30 08:56 | A.OFFPC_ITS ---
Vital Signs 05/30/23 08:56 Height 6 ft 4 in Weight 287 lb BMI 34.9 BP 114/68 Blood Pressure Location Lt brachial Position Sitting Pulse 77 Pulse Source Pulse Oximeter Pulse Oximetry (%) 95 Oxygen Delivery Method Room Air Intake Visit Reasons: a Fib Allergies milk Allergy (Unknown, Verified 05/30/23 08:56) Unknown tramadol Adverse Reaction (Intermediate, Verified 05/30/23 08:56) tremors salt Allergy (Unknown, Uncoded 05/30/23 08:56) unknown Medication List - Last Reconciled 05/30/23 by David Elena MD acetaminophen ER (Tylenol 8 Hour) 650 mg PO Q8H albuterol sulfate 90 mcg/actuation (Ventolin HFA) 2 puffs inhalation Q6H PRN allopurinol 200 mg PO DAILY amiodarone 200 mg PO DAILY apixaban (Eliquis) 5 mg PO BID atorvastatin 10 mg PO BEDTIME 30 days bisoprolol fumarate 5 mg PO DAILY 90 days calcium carbonate 600 mg PO DAILY cholecalciferol (vitamin D3) (Vitamin D3) 25 mcg PO DAILY dapagliflozin propanediol (Farxiga) 5 mg PO DAILY docusate sodium (Colace) 100 mg PO DAILY eplerenone 25 mg PO DAILY 90 days flash glucose scanning reader (TalentwiseStyle Henry 14 Day [place]) As directed flash glucose sensor (FreeStyle Henry 14 Day Sensor kit) As directed insulin glargine (Lantus Solostar U-100 Insulin) 42 units (0.42 mL) subcut QPM lidocaine 5% 1 appl topical BID PRN lisinopril 5 mg PO DAILY Novolog FlexPen U-100 Insulin (insulin aspart U-100) 5 units (0.05 mL) subcut TID NS pen needle, diabetic (BD Ultra-Fine Mini Pen Needle) USE DIRECTED TO INJECT INSULIN FOUR TIMES PER DAY [rollator As directed] sertraline 25 mg PO DAILY torsemide 20 mg (2 x 10 mg) PO DAILY Tobacco use date assessed: 05/30/23 Fall risk assessment: 1 Fall in past year Last assessed Fall Risk: 05/30/23 Dental Screening Dental Screen Date: 05/30/23 Did you have a dental visit in the last 12 months?: Yes Did you have a dental problem in the last 6 months where you did not have access to dental care?: No Was dental information given to patient?: Patient has dentist VALENTÍN Grier HPI Details 78-year-old obese male with atrial fibri llation obstructive sleep apnea GERD cardiomyopathy diabetes mellitus generalized anxiety disorder hypercholesterolemia chronic kidney disease and congestive heart failure last seen in February 2023. Patient is here for follow-up review of the notes seen by Nephrology May 2023 chronic kidney disease stage 3 stable patient also has followed up with Gastroenterology 03/30/2023 decided to hold off colonoscopy due to complicated medical problem. fall on chair on butt sunday but did not see any bruise [facility] Medical History (Updated 05/30/23 @ 09:37 by David Elena MD) Phlebitis Chronic kidney disease Gout Tubular adenoma of colon DKA (diabetic ketoacidosis) Cardiomyopathy Congestive heart failure Asthma Obesity (BMI 30-39.9) Pulmonary nodule Skin cancer Renal mass Obstructive sleep apnea Atrial fibrillation Tubular adenoma of colon Prostate cancer Osteoarthritis of knee GERD (gastroesophageal reflux disease) Prostatism Cholelithiasis Diabetes mellitus type II, uncontrolled Surgical History History of left knee replacement History of prostatectomy H/O left inguinal hernia repair S/P laparoscopic surgery Hx of tonsillectomy H/O arthroscopic knee surgery Family History Father CAD (coronary artery disease) Hypertension CVD (cardiovascular disease) Mother Breast cancer Spleen cancer Brother Diabetes Social History Housing: House Alcohol intake: current Alcohol intake frequency: holidays/special occasions only Patient Tobacco Use Status: Never used Tobacco e-Cigarette/Vaping Use: Never Used Second Hand Smoke Exposure: No service: No Current occupational status: retired Cognitive needs: Yes (walker) Hearing needs: No Vision needs: Yes Questionnaire PHQ-9 Over the last 2 weeks, how often have you been bothered by any of the following problems? 1. Little interest or pleasure in doing things: several days 2. Feeling down, depressed, or hopeless: several days 3. Trouble falling or staying asleep, or sleeping too much: not at all 4. Feeling tired or having little energy: not at all 5. Poor appetite or overeating: not at all 6. Feeling bad about yourself - or that you are a failure or have let yourself or your family down: not at all 7. Trouble concentrating on things, such as reading the newspaper or watching television: not at all 8. Moving or speaking so slowly that other people could have noticed. Or the opposite - being so fidgety or restless that you have been moving around a lot more than usual: not at all 9. Thoughts that you would be better off or of hurting yourself in some way: not at all Total score: 2 Depression Screening Interpretation: Positive Depression Screening Done: Yes Source: Developed by Drs. Nicholas Dennis, Catherine Mireles, Anuj Magallanes and colleagues, with an educational qing from [employer]. Thrive Questionnaire Date Thrive assessed: 05/30/23 I am a: Patient What is your living situation today?: I have a steady place to live Within the past 12 months, did the food you bought not last and you didn't have the money to get more?: Never true Within the past 12 months, did you worry whether your food would run out before you got money to buy more?: Never true Do you have trouble paying for medicines?: No Do you have trouble getting transportation to medical appointments?: No Do you have trouble paying your heating and electricity bill?: No Do you have trouble taking care of your child, family member or friend?: No Do you have trouble with day-to-day activities such as bathing, preparing meals, shopping, managing finances, etc.?: No Are you currently unemployed and looking for a job?: No Are you interested in more education?: No Currently or been in a relationship where the following occur: no concerns reported THRIVE Score: 0 AUDIT C Alcohol Use Questionnaire (AUDIT-C) 1. How often do you have a drink containing alcohol?: Never 2. How many drinks containing alcohol do you have on a typical day when you are drinking?: 1 or 2 3. How often do you have six or more drinks on one occasion?: Never Total Score: 0 Score Reviewed/Action Taken: No DELROY-7 AMB Questionnaire DELROY-7 Date DELROY - 7 assessed: 05/30/23 Feeling nervous, anxious, or on edge: 0 = Not at all Not being able to stop or control worryin = Not at all Worrying too much about different things: 0 = Not at all Trouble relaxin = Not at all Being so restless that it is hard to sit still: 0 = Not at all Becoming easily annoyed or irritable: 0 = Not at all Feeling afraid as if something awful might happen: 0 = Not at all Total DELROY-7 score (0-4 normal; 5-9 mild; 10-14 moderate; 15-21 severe): 0 Source: Developed by Drs. Nicholas Dennis, Catherine Mireles, Anuj Magallanes and colleagues, with an educational qing from [employer]. Physical exam (Primary Care) Vital Signs: Last Vital Signs Pulse 77 05/30/23 08:56 BP 114/68 05/30/23 08:56 Pulse Ox 95 05/30/23 08:56 Oxygen Delivery Method Room Air 05/30/23 08:56 BMI result Body Mass Index 34.9 Tobacco/Smoking Status: Tobacco use Status Tobacco use date assessed 05/30/23 05/30/23 09:04 Patient Tobacco Use Status Never used Tobacco 05/30/23 09:04 e-Cigarette/Vaping Use Never Used 05/30/23 09:04 PHQ-9: PHQ-9 Score PHQ-9: Total score 2 05/30/23 09:04 Depression Screening Interpretation: Positive Thrive Assessment: Date of Thrive Assessment Date Thrive assessed 05/30/23 05/30/23 09:04 Currently or been in a relationship where the following occur: no concerns reported Const General: alert; No acute distress Eyes Conjunctivae: conjunctivae normal Resp Auscultation: clear to auscultation bilaterally Cardio Rate: regular rate Rhythm: regular rhythm GI Inspection: Yes normal to inspection Extrem General: Yes normal to inspection and No edema Assessment and Plan Assessment & Plan (1) Type 2 diabetes mellitus with hyperglycemia: Comment: [facility] [place] Code(s): E11.65 - Type 2 diabetes mellitus with hyperglycemia Qualifiers: Diabetes mellitus buttermilk drier operator insulin use: without penitentiary use Qualified Code(s): E11.65 - Type 2 diabetes mellitus with hyperglycemia Plan: Decrease the amount of carbohydrate intake, pasta, bread, rice and potatoes are all sugar and that is aside from all the sweet stuff, remember that fruits are good but they are Sweet also. Hemoglobin A1c goal of less than 7.0 patient is on NovoLog insulin Lantus Rellga A1c of 6.14 April 2023 (2) Hypercholesterolemia: Code(s): E78.00 - Pure hypercholesterolemia, unspecified Plan: Avoid fried foods, chicken skin, eggs, butter margarine, pastries and meat. Be it pork or beef they have a lot of cholesterol LDL goal of less than 70 and triglyceride of less than 150 patient is taking atorvastatin and the last blood work was done July 2022 (3) CKD (chronic kidney disease) stage 3, GFR 30-59 ml/min: Code(s): N18.30 - Chronic kidney disease, stage 3 unspecified Qualifiers: Chronic kidney disease stage 3 subtype: stage 3a (GFR 45-59) Qualified Code(s): N18.31 - Chronic kidney disease, stage 3a Plan: Stable continue to monitor follows up with Nephrology (4) Congestive heart failure: Code(s): I50.9 - Heart failure, unspecified Qualifiers: Heart failure type: systolic Plan: Continue with a primary known and torsemide (5) Atrial fibrillation: Comment: December 2017, ejection fraction 20-25% doctor JOSS, yang EF 25% dilated aorta [address] Riccardo Banegas congestive heart failure program cardioverted February 2018 Code(s): I48.91 - Unspecified atrial fibrillation Qualifiers: Atrial fibrillation type: paroxysmal Qualified Code(s): I48.0 - Paroxysmal atrial fibrillation Plan: Continue with Eliquis and amiodarone (6) GERD (gastroesophageal reflux disease): Code(s): K21.9 - Gastro-esophageal reflux disease without esophagitis Qualifiers: Esophagitis presence: without esophagitis Qualified Code(s): K21.9 - Gastro-esophageal reflux disease without esophagitis Plan: Avoid the foods that causes that usually spicy foods, tomato products, juices, coffee, soda and foods that your sensitive to. After eating do not lie down, allow 3-4 hours before in lie down. And keep the head of bed above 30 degrees to avoid the acid from going up. (7) Obesity (BMI 30-39.9): Code(s): E66.9 - Obesity, unspecified (8) Generalized anxiety disorder: Code(s): F41.1 - Generalized anxiety disorder Plan: Continue with present medication (9) Tubular adenoma of colon: Comment: 2018 no more Code(s): D12.6 - Benign neoplasm of colon, unspecified Plan: Reviewed notes from Gastroenterology no more colonoscopy unless there is a problem (10) Renal mass: Comment: April 2018, November left renal mass December 2021 Code(s): N28.89 - Other specified disorders of kidney and ureter Plan: Patient continue to be monitored by Urology. HAs been advised to skip 2022 (11) Impacted cerumen of left ear: Code(s): H61.22 - Impacted cerumen, left ear Plan: will try to irrigate himself but to call if not any better Orders: Orders Lipid Panel 3 Months E11.65 - Type 2 diabetes mellitus with hyperglycemia, E78.00 - Pure hypercholesterolemia, unspecified Thyroid Stimulating Hormone 3 Months E11.65 - Type 2 diabetes mellitus with hyperglycemia Creatinine Urine 3 Months E11.65 - Type 2 diabetes mellitus with hyperglycemia Hemoglobin A1c 3 Months E11.65 - Type 2 diabetes mellitus with hyperglycemia Complete Blood Count Auto Diff 3 Months E11.65 - Type 2 diabetes mellitus with hyperglycemia Comprehensive Met. Panel 3 Months E11.65 - Type 2 diabetes mellitus with hyperglycemia B Type Natriuretic Peptide 3 Months E11.65 - Type 2 diabetes mellitus with hyperglycemia Free T4 (Free Thyroxine) 3 Months E11.65 - Type 2 diabetes mellitus with hyperglycemia Vitamin B12 and Folate 3 Months E11.65 - Type 2 diabetes mellitus with hyperglycemia Microalbumin, Random (w Creat) 3 Months E11.65 - Type 2 diabetes mellitus with hyperglycemia Coding Level of Care Code Est Pt Level 4 (27797) Diagnoses Type 2 diabetes mellitus with hyperglycemia, without long-term current use of insulin E11.65 Diabetes mellitus buttermilk drier operator insulin use: without buttermilk drier operator use Hypercholesterolemia E78.00 Stage 3a chronic kidney disease N18.31 Chronic kidney disease stage 3 subtype: stage 3a (GFR 45-59) Congestive heart failure I50.9 Heart failure type: systolic Paroxysmal atrial fibrillation I48.0 Atrial fibrillation type: paroxysmal Gastroesophageal reflux disease without esophagitis K21.9 Esophagitis presence: without esophagitis Obesity (BMI 30-39.9) E66.9 Generalized anxiety disorder F41.1 Tubular adenoma of colon D12.6 Renal mass N28.89 Impacted cerumen of left ear H61.22 Additional Codes PHQ-9 - 57910 - PHQ-9 Billing: ([id number])
== END 2023-05-30 09:44 | disposition home or self-care (01) ==
PROVIDERS: PCP Internal Medicine; Visit Provider Internal Medicine
DX: E11.65 Type 2 diabetes mellitus with hyperglycemia (principal); N18.31 Chronic kidney disease, stage 3a; I50.9 Heart failure, unspecified; I48.0 Paroxysmal atrial fibrillation; E66.9 Obesity, unspecified; Z68.34 Body mass index [BMI] 34.0-34.9, adult; E78.00 Pure hypercholesterolemia, unspecified; K21.9 Gastro-esophageal reflux disease without esophagitis; F41.1 Generalized anxiety disorder; D12.6 Benign neoplasm of colon, unspecified; N28.89 Other specified disorders of kidney and ureter; H61.22 Impacted cerumen, left ear
CPT/HCPCS: 99214

== ENCOUNTER 2023-08-30 07:50 | Outpatient (REF) | payer MEDICARE, SELFPAY ==
[2023-08-30 08:11] LABS: MANUAL DIFF FLAG NO
[2023-08-30 08:36] LABS: Basophils Absolute Auto 0.1 X10*3/uL (0.0-0.2); Basophils Percent Auto 0.9 % (0-2); Eosinophils Absolute Auto 0.1 X10*3/uL (0.0-0.4); Eosinophils Percent Auto 2.1 % (0-4); Hematocrit 48.6 % (42.0-52.0); Hemoglobin 15.9 g/dl (14.0-18.0); Imm Gran Abs Auto 0.04 X10*3/uL (0.00-0.03); Imm Gran Pct Auto 0.6 % (0.0-0.4); Lymphocytes Percent Auto 15.2 % (20-40); Mean Corpuscular HGB Conc 32.7 g/dl (31.0-36.0); Mean Corpuscular Hemoglobin 29.3 pg (27.0-33.0); Mean Corpuscular Volume 89.5 fL (80.0-98.0); Mean Platelet Volume 9.5 fL (9.4-12.4); Monocytes Absolute Auto 0.7 X10*3/uL (0.1-1.2); Monocytes Percent Auto 10.4 % (2-11); Neutrophils Absolute Auto 4.8 x10*3/uL (2.0-8.3); Neutrophils Percent Auto 70.8 % (45-73); Platelet Count 234 X10*3/uL (160-400); Red Blood Count 5.43 X10*6/uL (4.60-5.80); Red Cell Distribution Width 15.3 % (11.0-16.0); White Blood Count 6.7 X10*3/uL (4.8-10.8)
[2023-08-30 08:57] LABS: Blood Urea Nitrogen 29 mg/dL (9-16); Calcium 9.7 mg/dL (8.4-10.2); Uric Acid 5.9 mg/dL (3.4-7.0)
[2023-08-30 08:58] LABS: B Type Natriuretic Peptide 63 pg/mL (<100); Estimated Average Glucose 148 mg/dL; Hemoglobin A1c % 6.8 % (<6.0)
[2023-08-30 09:06] LABS: Alanine Aminotransferase 27 U/L (0-40); Albumin Level 4.1 g/dL (3.5-5.0); Alkaline Phosphatase 77 U/L (39-117); Anion Gap 15 (12-20); Aspartate Amino Transferase 25 U/L (5-37); Bilirubin Total 1.6 mg/dL (0.0-1.0); Blood Urea Nitrogen 28 mg/dL (9-16); Calcium 9.6 mg/dL (8.4-10.2); Carbon Dioxide 26 mmol/L (22-29); Chloride 106 mmol/L (96-108); Cholesterol 106 mg/dL (<200); Estimated Glomerular Filt Rate 56; Glucose Random 133 mg/dL (60-115); HDL Cholesterol 32 mg/dL (>40); LDL Cholesterol Calculated 48 mg/dL (<100); Sodium 143 mmol/L (135-145); Total Protein 8.2 g/dL (6.5-8.0); Triglycerides 132 mg/dL (<150)
[2023-08-30 09:21] LABS: Free T4 (Free Thyroxine) 0.92 ng/dL (0.71-1.85); Thyroid Stimulating Hormone 2.75 uIU/mL (0.32-4.0)
[2023-08-30 09:35] LABS: Folate 5.5 ng/mL (> or = 4.0); Vitamin B12 943 pg/mL (200-900)
== END 2023-08-30 07:51 | disposition home or self-care (01) ==
LOC: HO.LAB 07:50
PROVIDERS: Absent Provider Internal Medicine; PCP Internal Medicine; Visit Provider Internal Medicine Nephrology
DX: E11.22 Type 2 diabetes mellitus with diabetic chronic kidney disease (principal); E78.00 Pure hypercholesterolemia, unspecified; N18.30 Chronic kidney disease, stage 3 unspecified
CPT/HCPCS: 36415; 80053; 80061; 82310; 82607; 82746; 83036; 83880; 84439; 84443; 84520; 84550; 85025

== ENCOUNTER 2023-09-07 09:17 | Outpatient (AMB) | payer MEDICARE, SELFPAY ==
[2023-09-07 09:29] VITALS: BP 130/68; PULSE 62; O2SAT 93; BMI 35.1
--- NOTE | 2023-09-07 09:29 | A.OFFPC_ITS ---
Vital Signs 09/07/23 09:29 Height 6 ft 4 in Weight 288 lb 0.6 oz BMI 35.1 BP 130/68 Blood Pressure Location Lt brachial Position Sitting Pulse 62 Pulse Source Pulse Oximeter Pulse Oximetry (%) 93 Oxygen Delivery Method Room Air Intake Visit Reasons: 3 Month F/U Allergies milk Allergy (Unknown, Verified 05/30/23 08:56) Unknown tramadol Adverse Reaction (Intermediate, Verified 05/30/23 08:56) tremors salt Allergy (Unknown, Uncoded 05/30/23 08:56) unknown Tobacco use date assessed: 05/30/23 Fall risk assessment: No Falls in past year Last assessed Fall Risk: 09/07/23 Dental Screening Dental Screen Date: 05/30/23 HPI 3 Month F/U HPI Details 78-year-old obese male with diabetes chong litus hypercholesterolemia chronic kidney disease atrial fibrillation congestive heart failure GERD generalized anxiety disorder obstructive sleep apnea coming in for follow-up. Last seen in 05/29/2023 [facility] Medical History (Updated 09/07/23 @ 10:03 by David Elena MD) Impacted cerumen of left ear Phlebitis Chronic kidney disease Gout Tubular adenoma of colon DKA (diabetic ketoacidosis) Cardiomyopathy Congestive heart failure Asthma Obesity (BMI 30-39.9) Pulmonary nodule Skin cancer Renal mass Obstructive sleep apnea Atrial fibrillation Tubular adenoma of colon Prostate cancer Osteoarthritis of knee GERD (gastroesophageal reflux disease) Prostatism Cholelithiasis Diabetes mellitus type II, uncontrolled Surgical History History of left knee replacement History of prostatectomy H/O left inguinal hernia repair S/P laparoscopic surgery Hx of tonsillectomy H/O arthroscopic knee surgery Family History Father CAD (coronary artery disease) Hypertension CVD (cardiovascular disease) Mother Breast cancer Spleen cancer Brother Diabetes Social History Housing: House Alcohol intake: current Alcohol intake frequency: holidays/special occasions only Patient Tobacco Use Status: Never used Tobacco e-Cigarette/Vaping Use: Never Used Second Hand Smoke Exposure: No service: No Current occupational status: retired Cognitive needs: Yes (walker) Hearing needs: No Vision needs: Yes Questionnaire Thrive Questionnaire Date Thrive assessed: 05/30/23 AUDIT C Alcohol Use Questionnaire (AUDIT-C) 1. How often do you have a drink containing alcohol?: Never 2. How many drinks containing alcohol do you have on a typical day when you are drinking?: 1 or 2 3. How often do you have six or more drinks on one occasion?: Never Total Score: 0 Score Reviewed/Action Taken: No DELROY-7 AMB Questionnaire DELROY-7 Date DELROY - 7 assessed: 05/30/23 Source: Developed by Drs. Nicholas Dennis, Catherine Mireles, Anuj Magallanes and colleagues, with an educational qing from [employer]. Physical exam (Primary Care) Vital Signs: Last Vital Signs Pulse 62 09/07/23 09:29 BP 130/68 09/07/23 09:29 Pulse Ox 93 09/07/23 09:29 Oxygen Delivery Method Room Air 09/07/23 09:29 BMI result Body Mass Index 35.1 Tobacco/Smoking Status: Tobacco use Status Tobacco use date assessed 05/30/23 09/07/23 09:31 Patient Tobacco Use Status Never used Tobacco 09/07/23 09:31 e-Cigarette/Vaping Use Never Used 09/07/23 09:31 Thrive Assessment: Date of Thrive Assessment Date Thrive assessed 05/30/23 09/07/23 09:31 Const Other: impacted cerumen bilateral - irrigation done by JOVANY Jimenez General: alert; No acute distress Eyes Conjunctivae: conjunctivae normal Resp Auscultation: clear to auscultation bilaterally Cardio Rate: regular rate Rhythm: regular rhythm GI Inspection: Yes normal to inspection Extrem General: Yes normal to inspection and No edema Office Procedures Cerumen Removal From which ear canal was the cerumen removed: bilateral Removal: irrigation and cerumen loop/spoon Notes: patient tolerated procedure well, no complications and ear canal clear [id number] Irrigation/Lavage Assessment and Plan Assessment & Plan (1) Type 2 diabetes mellitus with hyperglycemia: Comment: Dr. [facility] Code(s): E11.65 - Type 2 diabetes mellitus with hyperglycemia Qualifiers: Diabetes mellitus terminal block assembler insulin use: without half-way use Qualified Code(s): E11.65 - Type 2 diabetes mellitus with hyperglycemia Plan: Decrease the amount of carbohydrate intake, pasta, bread, rice and potatoes are all sugar and that is aside from all the sweet stuff, remember that fruits are good but they are Sweet also. Hemoglobin A1c goal of less than 7.0 patient is taking Farxiga Lantus NovoLog. Hemoglobin A1c is at goal. (2) Atrial fibrillation: Comment: December 2017, ejection fraction 20-25% doctor JOSS, yang EF 25% dilated aorta [address] Riccardo Banegas congestive heart failure program cardioverted February 2018 Code(s): I48.91 - Unspecified atrial fibrillation Qualifiers: Atrial fibrillation type: paroxysmal Qualified Code(s): I48.0 - Paroxysmal atrial fibrillation Plan: Continuing with Eliquis (3) GERD (gastroesophageal reflux disease): Code(s): K21.9 - Gastro-esophageal reflux disease without esophagitis Qualifiers: Esophagitis presence: without esophagitis Qualified Code(s): K21.9 - Gastro-esophageal reflux disease without esophagitis Plan: Avoid the foods that causes that usually spicy foods, tomato products, juices, coffee, soda and foods that your sensitive to. After eating do not lie down, allow 3-4 hours before in lie down. And keep the head of bed above 30 degrees to avoid the acid from going up. (4) Hypercholesterolemia: Code(s): E78.00 - Pure hypercholesterolemia, unspecified Plan: Avoid fried foods, chicken skin, eggs, butter margarine, pastries and meat. Be it pork or beef they have a lot of cholesterol LDL goal of less than 70 and triglyceride of less than 150 on atorvastatin 10 mg once a day (5) Peripheral vascular disease: Code(s): I73.9 - Peripheral vascular disease, unspecified Plan: When sitting down elevate the legs, exercise, and support stockings (6) CKD (chronic kidney disease) stage 3, GFR 30-59 ml/min: Code(s): N18.30 - Chronic kidney disease, stage 3 unspecified Qualifiers: Chronic kidney disease stage 3 subtype: stage 3a (GFR 45-59) Qualified Code(s): N18.31 - Chronic kidney disease, stage 3a Plan: Keep well hydrated and avoid NSAIDs continue to monitor (7) Obesity (BMI 30-39.9): Code(s): E66.9 - Obesity, unspecified Plan: Diet and exercise (8) Asthma: Code(s): J45.909 - Unspecified asthma, uncomplicated Qualifiers: Asthma complication type: uncomplicated Asthma persistence: intermittent Asthma severity: mild Qualified Code(s): J45.20 - Mild intermittent asthma, uncomplicated Plan: Continue with albuterol inhaler (9) Impacted cerumen of both ears: Code(s): H61.23 - Impacted cerumen, bilateral Plan: Irrigation and Scoop done by JOVANY Jimenez Orders: Orders CA echo transthoracic complete Today I42.9 - Cardiomyopathy, unspecified B Type Natriuretic Peptide 3 Months I50.9 - Heart failure, unspecified Complete Blood Count Auto Diff Today I50.9 - Heart failure, unspecified Comprehensive Met. Panel Today I50.9 - Heart failure, unspecified Coding Level of Care Code Est Pt Level 4 (61983) Complex EM visit Add On G2211 Diagnoses Type 2 diabetes mellitus with hyperglycemia, without long-term current use of insulin E11.65 Diabetes mellitus terminal block assembler insulin use: without half-way use Paroxysmal atrial fibrillation I48.0 Atrial fibrillation type: paroxysmal Gastroesophageal reflux disease without esophagitis K21.9 Esophagitis presence: without esophagitis Hypercholesterolemia E78.00 Peripheral vascular disease I73.9 Stage 3a chronic kidney disease N18.31 Chronic kidney disease stage 3 subtype: stage 3a (GFR 45-59) Obesity (BMI 30-39.9) E66.9 Mild intermittent asthma without complication J45.20 Asthma complication type: uncomplicated Asthma persistence: intermittent Asthma severity: mild Impacted cerumen of both ears H61.23 CPT Codes Office Procedure - CPT: 36339-Pqg Irrigation/Lavage ([id number])
== END 2023-09-07 10:15 | disposition home or self-care (01) ==
PROVIDERS: PCP Internal Medicine; Visit Provider Internal Medicine
DX: E11.65 Type 2 diabetes mellitus with hyperglycemia (principal); I48.0 Paroxysmal atrial fibrillation; I73.9 Peripheral vascular disease, unspecified; N18.31 Chronic kidney disease, stage 3a; H61.23 Impacted cerumen, bilateral; E78.00 Pure hypercholesterolemia, unspecified; K21.9 Gastro-esophageal reflux disease without esophagitis; E66.9 Obesity, unspecified; J45.20 Mild intermittent asthma, uncomplicated; Z68.35 Body mass index [BMI] 35.0-35.9, adult
CPT/HCPCS: 69210; 99214

== ENCOUNTER 2023-09-14 09:41 | Outpatient (AMB) | payer MEDICARE, SELFPAY ==
[2023-09-14 09:59] VITALS: BP 126/70; PULSE 65; O2SAT 93; BMI 35.4
--- NOTE | 2023-09-14 09:59 | HO.NEPHOV ---
Vital Signs 09/14/23 09:59 Height 6 ft 4 in Weight 291 lb 2 oz BMI 35.4 BP 126/70 Blood Pressure Location Lt brachial Position Sitting Pulse 65 Pulse Source Pulse Oximeter Pulse Oximetry (%) 93 Oxygen Delivery Method Room Air Intake Visit Reasons: CKD/ 4 MO FU/ Conf w/ Business Support Administrator Required: No Accompanied by: Spouse Allergies milk Allergy (Unknown, Verified 09/14/23 10:03) Unknown tramadol Adverse Reaction (Intermediate, Verified 09/14/23 10:03) tremors salt Allergy (Unknown, Uncoded 05/30/23 08:56) unknown HPI Comments Details: eff was seen in follow up for his CKD. His gout attacks are better on current dose of Allopurinol. He has been regularly followed up by his tub wash operator( Dr Banegas). He has no SOB, PND or orthopnea. He denies chest pain, nausea, vomiting, diarrhea, dizziness. He is not taking any NSAID's. He has no hematuria or dysuria. His last serum creatinine was 1.24 PFS Medical History (Updated 09/14/23 @ 10:06 by Darinel Allen MD) Impacted cerumen of left ear Phlebitis Chronic kidney disease Gout Tubular adenoma of colon DKA (diabetic ketoacidosis) Cardiomyopathy Congestive heart failure Asthma Obesity (BMI 30-39.9) Pulmonary nodule Skin cancer Renal mass Obstructive sleep apnea Atrial fibrillation Tubular adenoma of colon Prostate cancer Osteoarthritis of knee GERD (gastroesophageal reflux disease) Prostatism Cholelithiasis Diabetes mellitus type II, uncontrolled Surgical History History of left knee replacement History of prostatectomy H/O left inguinal hernia repair S/P laparoscopic surgery Hx of tonsillectomy H/O arthroscopic knee surgery Family History Father CAD (coronary artery disease) Hypertension CVD (cardiovascular disease) Mother Breast cancer Spleen cancer Brother Diabetes Social History Housing: House Alcohol intake: current Alcohol intake frequency: holidays/special occasions only Patient Tobacco Use Status: Never used Tobacco e-Cigarette/Vaping Use: Never Used Second Hand Smoke Exposure: No service: No Current occupational status: retired Cognitive needs: Yes (walker) Hearing needs: No Vision needs: Yes Physical Exam Vital Signs: Last Vital Signs Pulse 65 09/14/23 09:59 BP 126/70 09/14/23 09:59 Pulse Ox 93 09/14/23 09:59 Oxygen Delivery Method Room Air 09/14/23 09:59 BMI result Body Mass Index 35.4 Const General: comfortable and no acute distress Orientation/consciousness: patient oriented x3 HEENT Head: Yes normocephalic Mouth: Normal oral and palatal mucosa present Eyes EOM: EOMs intact bilaterally Neck Neck: Yes supple Resp Auscultation: clear to auscultation bilaterally Cardio Jugular venous distension: no JVD Rate: regular rate Heart sounds: Murmur heart sound present GI Palpation (GI): Soft to palpation Auscultation: normal bowel sounds General: Yes no CVA tenderness Back/Spine/Pelvis Back: no CVA tenderness Skin General skin exam: no rashes or lesions noted Neuro General: patient oriented x3 and moves all extremities Results Reviewed Nephrology Results: Hgb 15.9 g/dl (14.0-18.0) 08/30/23 WBC 6.7 X10*3/uL (4.8-10.8) 08/30/23 Plt Count 234 X10*3/uL (160-400) 08/30/23 Sodium 143 mmol/L (135-145) 08/30/23 Potassium 4.0 mmol/L (3.3-5.1) 08/30/23 Chloride 106 mmol/L (96-108) 08/30/23 Carbon Dioxide 26 mmol/L (22-29) 08/30/23 BUN 28 mg/dL (9-16) H 08/30/23 Creatinine 1.24 mg/dL (0.5-1.4) 08/30/23 Calcium 9.6 mg/dL (8.4-10.2) 08/30/23 Urine Creatinine 150.49 mg/dL 07/26/22 Assessment & Plan Assessment & Plan (1) CKD (chronic kidney disease) stage 3, GFR 30-59 ml/min: Code(s): N18.30 - Chronic kidney disease, stage 3 unspecified Category: Medical Qualifiers: Chronic kidney disease stage 3 subtype: stage 3a (GFR 45-59) Qualified Code(s): N18.31 - Chronic kidney disease, stage 3a (2) Renal mass: Comment: April 2018, November left renal mass December 2021 Code(s): N28.89 - Other specified disorders of kidney and ureter Category: Medical (3) Cardiomyopathy: Code(s): I42.9 - Cardiomyopathy, unspecified Category: Medical Qualifiers: Cardiomyopathy type: ischemic Qualified Code(s): I25.5 - Ischemic cardiomyopathy (4) Peripheral vascular disease: Code(s): I73.9 - Peripheral vascular disease, unspecified Category: Medical Plan Renal function had been stable Urine output good; Volume status optimal; On Farxiga No NSAID's. Has H/O Gout; Dayron follows renal mass Hemodynamics stable; No medication changes done today Blood work ordered for F/U renal function More than 50 % time spent discussing all these Answered all his and his 's questions Follow up appointment given Orders: Orders Electrolytes Today I25.5 - Ischemic cardiomyopathy, I73.9 - Peripheral vascular disease, unspecified, N18.31 - Chronic kidney disease, stage 3a, N28.89 - Other specified disorders of kidney and ureter Creatinine Today I25.5 - Ischemic cardiomyopathy, I73.9 - Peripheral vascular disease, unspecified, N18.31 - Chronic kidney disease, stage 3a, N28.89 - Other specified disorders of kidney and ureter Blood Urea Nitrogen Today I25.5 - Ischemic cardiomyopathy, I73.9 - Peripheral vascular disease, unspecified, N18.31 - Chronic kidney disease, stage 3a, N28.89 - Other specified disorders of kidney and ureter Calcium Today I25.5 - Ischemic cardiomyopathy, I73.9 - Peripheral vascular disease, unspecified, N18.31 - Chronic kidney disease, stage 3a, N28.89 - Other specified disorders of kidney and ureter Coding Level of Care Code Est Pt Level 4 (71904) Diagnoses Stage 3a chronic kidney disease N18.31 Chronic kidney disease stage 3 subtype: stage 3a (GFR 45-59) Renal mass N28.89 Ischemic cardiomyopathy I25.5 Cardiomyopathy type: ischemic Peripheral vascular disease I73.9
== END 2023-09-14 10:24 | disposition home or self-care (01) ==
PROVIDERS: PCP Internal Medicine; Visit Provider Internal Medicine Nephrology
DX: N18.31 Chronic kidney disease, stage 3a (principal); N28.89 Other specified disorders of kidney and ureter; I25.5 Ischemic cardiomyopathy; I73.9 Peripheral vascular disease, unspecified
CPT/HCPCS: 99214

== ENCOUNTER → 2023-09-14 09:41 | Outpatient (BNVA) | payer MEDICARE, SELFPAY | PROVIDERS: PCP Internal Medicine; Visit Provider Internal Medicine Nephrology | DX: E11.65 Type 2 diabetes mellitus with hyperglycemia (principal); E11.10 Type 2 diabetes mellitus with ketoacidosis without coma; I25.5 Ischemic cardiomyopathy; I42.9 Cardiomyopathy, unspecified; I73.9 Peripheral vascular disease, unspecified; N18.31 Chronic kidney disease, stage 3a; N28.89 Other specified disorders of kidney and ureter | CPT/HCPCS: 99212 ==

== ENCOUNTER → 2023-09-26 08:47 | Outpatient (REF) | payer MEDICARE, SELFPAY ==
--- NOTE | 2023-09-26 08:51 | CA_ITS ---
Transthoracic Echocardiogram Patient (Last, First, Middle): Harry Coats L Gender: Male Date of : 1945 Age: 78 Procedure Date: 09/26/2023 Procedure Type: Transthoracic Echocardiogram Location: OP Height: 193.04 cm Weight: 129.28 kg BSA: 2.58 m2 Heart Rate: bpm BP: 130 / 66 mmHg Regulatory Associate: TO Referring MD: David Elena MD Workcell Operator: William Zazueta MD Symptoms: I42.9 - Cardiomyopathy, unspecified Study Quality: Fair/Contrast ECG Rhythm: Sinus bradycardia Conclusions: - 1. Normal LV ejection fraction with pseudonormal filling pattern 2. Early mild aortic stenosis 3. Normal RV systolic pressure 4. Mildly dilated ascending aorta 5. No gross pericardial effusion Findings Procedure Information Contrast agent, definity, is being given per protocol without apparent complications. Left Ventricle Normal left ventricular size, thickness, and systolic function. The visually estimated ejection fraction is between 60-65%. Spectral Doppler is indicative of a pseudonormal filling pattern. E/E prime ratio is between 8 and 15 consistent with indeterminate filling pressures. Right Ventricle Normal right ventricular cavity size and systolic function. Atria The left atrium is normal in size. Interatrial shunt cannot be excluded. The right atrium is normal in size. Aortic Valve There is mild calcification of the aortic valve. There is moderate thickening of the aortic valve. The peak aortic gradient is 15 mmHg.The mean gradient is 8 mmHg. The aortic valve area is 2.29 cm2. Mitral Valve There is mild anterior and posterior mitral leaflet thickening. There is trace mitral valve regurgitation. There is no mitral valve stenosis. Pulmonic Valve The pulmonic valve was not well visualized. Tricuspid Valve Likely normal tricuspid valve structure and function. There is mild tricuspid valve regurgitation. The right ventricular systolic pressure is normal. The right ventricular systolic pressure is 32 mmHg. Normal right atrial pressure. There is no evidence of pulmonary hypertension. Great Vessels The pulmonary artery was not well visualized. There is mild dilatation of the ascending aorta measuring 4.20 cm. Venous The inferior vena cava is normal in size and collapses greater than 50% with inspiration. Pericardium/Pleural There is no evidence of pericardial effusion. Prior Study Comparison No prior study available for comparison. Measurements 2D Linear Measurements IVSd: 1.25 0.6-0.9/0.6-1.0 cm LVIDd: 5.44 3.9-5.3/4.2-5.9 cm LVIDd Index: 2.11 2.4-3.2/2.2-3.1 cm/m2 LVIDs: 4.00 2.0-3.6 cm LVPWd: 1.01 0.7-1.1 cm LA Diam: 3.70 2.7-3.8/3.0-4.0 cm LAIDs Index: 1.43 1.5-2.3 cm/m2 LV Mass: 307.37 67-162/88-224 g LV Mass Index: 119.13 43-95/49-115 g/m2 LVOT Diam: 2.50 3.0+(-)1.3 cm 2D Systolic Function EF 4C: 62.70 >55% EF 2C: 68.60 >55% EF BiP: 65.50 >55% Mitral Valve MV Pk E: 0.71 MV PK A: 0.57 MV Decel Time: 294.00 E/A: 1.20 E'Lateral: 10.40 E'Medial: 7.07 E/E' Med: 10.10 E/E' Lat: 6.80 PHT: 86.00 MVA PHT: 2.56 Decel Glynn: 2.42 Aortic Valve AoV Pk Azar: 1.95 AoV Mn Azar: 1.27 AoV VTI: 0.47 AoV Pk Grad: 15.00 Aov Mn Grad: 8.00 [place] Cont.VTI: 2.29 LVOT LVOT Pk Azar: 0.83 LVOT Mn Azar: 0.59 LVOT VTI: 0.22 LVOT Pk Grad: 3.00 LVOT Mn Grad: 2.00 LVOT Diam: 2.50 LVOT Area: 4.91 Diastolic Function MV Pk E: 0.71 MV Pk A: 0.57 E/A: 1.20 E'Medial: 7.07 E/E' Med: 10.10 E' Laterial: 10.40 E/E' Lat: 6.80 Right Ventricle TAPSE (mm): 29.00 TVS' Azar: 11.90 Tricuspid Valve TR Pk Azar: 2.70 TR Pk Grad: 29.00 RA Press: 3.00 RVSP: 32.00 Great Vessels Aorta Sinus of Valsalva: 4.36 2.0-3.[address] Ridge: 3.15 1.7-3.4 cm Ao Asc: 4.20 2.1-3.4 cm Ao Arch: 3.70 Updated in Other Vendor System with Status of Final William Zazueta MD electronically signed on 09/26/2023 11:42:33 AM with status of Final
== END ==
LOC: HO.CARD 08:47
PROVIDERS: Visit Provider Internal Medicine
DX: I42.9 Cardiomyopathy, unspecified (principal)
CPT/HCPCS: 93306; Q9957

== ENCOUNTER → 2023-09-26 08:51 | Outpatient (BNV) | payer MEDICARE, SELFPAY | PROVIDERS: Visit Provider Internal Medicine Cardiovascular Disease | DX: I35.0 Nonrheumatic aortic (valve) stenosis (principal); I36.1 Nonrheumatic tricuspid (valve) insufficiency | CPT/HCPCS: 93306 ==

== ENCOUNTER 2024-02-22 10:28 | Outpatient (AMB) | payer MEDICARE, SELFPAY ==
--- NOTE | 2024-02-22 10:51 | HO.NEPHOV ---
Vital Signs 02/22/24 10:52 Height 6 ft 4 in Weight 208 lb BMI 25.3 BP 94/50 L Blood Pressure Location Rt brachial Position Sitting Pulse 68 Pulse Source Pulse Oximeter Pulse Oximetry (%) 93 Oxygen Delivery Method Room Air Intake Visit Reasons: CKD/ 4 MO FU- Unable to conf Media Sales Representative Required: No Accompanied by: Spouse Allergies milk Allergy (Unknown, Verified 02/22/24 10:52) Unknown tramadol Adverse Reaction (Intermediate, Verified 02/22/24 10:52) tremors salt Allergy (Unknown, Uncoded 05/30/23 08:56) unknown HPI Comments Details: Ryley was seen in follow up for his CKD. His gout attacks are better on current dose of Allopurinol. He recently had hospitalizations for foot wounds. He has been regularly followed up by his document improvement specialist( Dr Banegas). He has no SOB, PND or orthopnea. He denies chest pain, nausea, vomiting, diarrhea, dizziness. He is not taking any NSAID's. He has no hematuria or dysuria. His last serum creatinine is stable [facility] Medical History (Updated 01/09/24 @ 14:53 by David Elena MD) Impacted cerumen of left ear Phlebitis Chronic kidney disease Gout Tubular adenoma of colon DKA (diabetic ketoacidosis) Cardiomyopathy Congestive heart failure Asthma Obesity (BMI 30-39.9) Pulmonary nodule Skin cancer Renal mass Obstructive sleep apnea Atrial fibrillation Tubular adenoma of colon Prostate cancer Osteoarthritis of knee GERD (gastroesophageal reflux disease) Prostatism Cholelithiasis Diabetes mellitus type II, uncontrolled Surgical History History of left knee replacement History of prostatectomy H/O left inguinal hernia repair S/P laparoscopic surgery Hx of tonsillectomy H/O arthroscopic knee surgery Family History Father CAD (coronary artery disease) Hypertension CVD (cardiovascular disease) Mother Breast cancer Spleen cancer Brother Diabetes Social History Housing: House Alcohol intake: current Alcohol intake frequency: holidays/special occasions only Patient Tobacco Use Status: Never used Tobacco e-Cigarette/Vaping Use: Never Used Second Hand Smoke Exposure: No service: No Current occupational status: retired Cognitive needs: Yes (walker) Hearing needs: No Vision needs: Yes Review of Systems Const All systems reviewed & are unremarkable except as noted in HPI and below Physical Exam Vital Signs: Last Vital Signs Pulse 68 02/22/24 10:52 BP 94/50 L 02/22/24 10:52 Pulse Ox 93 02/22/24 10:52 Oxygen Delivery Method Room Air 02/22/24 10:52 BMI result Body Mass Index 25.3 Const General: comfortable and no acute distress Orientation/consciousness: patient oriented x3 HEENT Head: Yes normocephalic Mouth: Normal oral and palatal mucosa present Eyes EOM: EOMs intact bilaterally Neck Neck: Yes supple Resp Auscultation: clear to auscultation bilaterally Cardio Jugular venous distension: no JVD Rate: regular rate GI Palpation (GI): Soft to palpation Auscultation: normal bowel sounds General: Yes no CVA tenderness Back/Spine/Pelvis Back: no CVA tenderness Skin General skin exam: no rashes or lesions noted Neuro General: patient oriented x3 and moves all extremities Results Reviewed Nephrology Results: Hgb 15.9 g/dl (14.0-18.0) 08/30/23 WBC 6.7 X10*3/uL (4.8-10.8) 08/30/23 Plt Count 234 X10*3/uL (160-400) 08/30/23 Sodium 143 mmol/L (135-145) 08/30/23 Potassium 4.0 mmol/L (3.3-5.1) 08/30/23 Chloride 106 mmol/L (96-108) 08/30/23 Carbon Dioxide 26 mmol/L (22-29) 08/30/23 BUN 28 mg/dL (9-16) H 08/30/23 Creatinine 1.24 mg/dL (0.5-1.4) 08/30/23 Calcium 9.6 mg/dL (8.4-10.2) 08/30/23 Assessment & Plan Assessment & Plan (1) CKD (chronic kidney disease) stage 3, GFR 30-59 ml/min: Code(s): N18.30 - Chronic kidney disease, stage 3 unspecified Category: Medical Qualifiers: Chronic kidney disease stage 3 subtype: stage 3a (GFR 45-59) Qualified Code(s): N18.31 - Chronic kidney disease, stage 3a Plan Renal function had been stable Urine output good; Volume status optimal; On Farxiga No NSAID's. Has H/O Gout; Dayron follows renal mass Hemodynamics stable; No medication changes done today Blood work ordered for F/U renal function Answered all his and his 's questions Follow up appointment given Orders: Orders Creatinine 8 Months N18.31 - Chronic kidney disease, stage 3a Electrolytes 8 Months N18.31 - Chronic kidney disease, stage 3a Uric Acid 8 Months N18.31 - Chronic kidney disease, stage 3a Blood Urea Nitrogen 8 Months N18.31 - Chronic kidney disease, stage 3a Coding Level of Care Code Est Pt Level 4 (44764) Diagnoses Stage 3a chronic kidney disease N18.31 Chronic kidney disease stage 3 subtype: stage 3a (GFR 45-59)
[2024-02-22 10:52] VITALS: BP 94/50; PULSE 68; O2SAT 93; BMI 25.3
== END 2024-02-22 11:15 | disposition home or self-care (01) ==
PROVIDERS: PCP Internal Medicine; Visit Provider Internal Medicine Nephrology
DX: N18.31 Chronic kidney disease, stage 3a (principal)
CPT/HCPCS: 99214

== ENCOUNTER → 2024-02-22 10:28 | Outpatient (BNVA) | payer MEDICARE, SELFPAY | PROVIDERS: PCP Internal Medicine; Visit Provider Internal Medicine Nephrology | DX: N18.31 Chronic kidney disease, stage 3a (principal) | CPT/HCPCS: 99212 ==

== ENCOUNTER 2024-02-26 09:55 | Outpatient (AMB) | payer MEDICARE, SELFPAY ==
[2024-02-26 10:19] VITALS: BP 100/52; PULSE 72; O2SAT 95; BMI 30.8
--- NOTE | 2024-02-26 10:19 | MHC.PC.OV ---
Vital Signs 02/26/24 10:19 Height 6 ft 4 in Weight 253 lb BMI 30.8 BP 100/52 L Blood Pressure Location Lt brachial Position Sitting Pulse 72 Pulse Source Pulse Oximeter Pulse Oximetry (%) 95 Oxygen Delivery Method Room Air [facility] [place] [facility] Allergies milk Allergy (Unknown, Verified 02/22/24 10:52) Unknown tramadol Adverse Reaction (Intermediate, Verified 02/22/24 10:52) tremors salt Allergy (Unknown, Uncoded 05/30/23 08:56) unknown Tobacco use date assessed: 05/30/23 Dental Screening Dental Screen Date: 05/30/23 HPI HPI Comments History of Present Illness Details 78 y/o male patient who presents to the clinic for SNF discharge F/U. He was admitted at [facility] on 01/16/24 - 02/18/24, after he suffered right foot/heel non healing wound. He was treated with IV abx while in SNF. He still follows with Vascular surgery and Wound care nurse. He has services already lined up to start sometime this week. Today Pt c/o B/L ear wax build-up and unable to hear well due to that. [facility] Medical History (Updated 01/09/24 @ 14:53 by David Elena MD) Impacted cerumen of left ear Phlebitis Chronic kidney disease Gout Tubular adenoma of colon DKA (diabetic ketoacidosis) Cardiomyopathy Congestive heart failure Asthma Obesity (BMI 30-39.9) Pulmonary nodule Skin cancer Renal mass Obstructive sleep apnea Atrial fibrillation Tubular adenoma of colon Prostate cancer Osteoarthritis of knee GERD (gastroesophageal reflux disease) Prostatism Cholelithiasis Diabetes mellitus type II, uncontrolled Surgical History History of left knee replacement History of prostatectomy H/O left inguinal hernia repair S/P laparoscopic surgery Hx of tonsillectomy H/O arthroscopic knee surgery Family History Father CAD (coronary artery disease) Hypertension CVD (cardiovascular disease) Mother Breast cancer Spleen cancer Brother Diabetes Social History Housing: House Alcohol intake: current Alcohol intake frequency: holidays/special occasions only Patient Tobacco Use Status: Never used Tobacco e-Cigarette/Vaping Use: Never Used Second Hand Smoke Exposure: No service: No Current occupational status: retired Cognitive needs: Yes (walker) Hearing needs: No Vision needs: Yes Questionnaire Thrive Questionnaire Date Thrive assessed: 05/30/23 DELROY-7 AMB Questionnaire DELROY-7 Date DELROY - 7 assessed: 05/30/23 Source: Developed by Drs. Nicholas Dennis, Catherine Mireles, Anuj Magallanes and colleagues, with an educational qing from [email or web address]. Review of Systems Const All systems reviewed & are unremarkable except as noted in HPI and below Physical exam (Primary Care) Vital Signs: Last Vital Signs Pulse 72 02/26/24 10:19 BP 100/52 L 02/26/24 10:19 Pulse Ox 95 02/26/24 10:19 Oxygen Delivery Method Room Air 02/26/24 10:19 BMI result Body Mass Index 30.8 Tobacco/Smoking Status: Tobacco use Status Tobacco use date assessed 05/30/23 02/26/24 10:19 Patient Tobacco Use Status Never used Tobacco 02/26/24 10:19 e-Cigarette/Vaping Use Never Used 02/26/24 10:19 Thrive Assessment: Date of Thrive Assessment Date Thrive assessed 05/30/23 02/26/24 10:19 Const General: no acute distress Orientation/consciousness: patient oriented x3 Limitations: ambulation with walker HENMT Head: Yes normocephalic Ears: external ears normal and TM abnormal obstructed by cerumen bilateral Resp Effort & Inspection: normal respiratory effort Cardio Heart sounds: S1 normal heart sound present and S2 normal heart sound present Neuro General: patient oriented x3 and moves all extremities Extrem Right lower extremity: foot (Wrapped with an Ortho Boot for support) Office Procedures Flu Questionnaire Does the patient have a severe egg allergy?: No Does the patient have severe life threatening allergies?: No Does the patient have a fever or illness today?: No Has the patient ever had Guillain-Gordon Syndrome?: No Has the patient ever had any past reaction to a flu shot?: No Immunizations Fluarix Triv [id number] (PF) 45 mcg (15 mcg x 3)/0.5 mL IM syringe Performing Provider: Ena Acevedo NP [facility] Administered by: RADHA Ott on 02/26/24 10:20 Dose Route Admin Location Dispensed Lot Number Expiration Date NDC [employer] Analyst 0.5 mL IM Left Deltoid 0.5 mL [id number] 10/06/24 [id number] Beam. VIS Given Date VIS Provided VIS Publication Date 02/26/24 Single Vaccine 20 Eligibility Eligibility Date Funding Source Not [facility] Eligible 02/26/24 Private Coding Level of Care Code Est Pt Level 4 (27536) Diagnoses Impacted cerumen of both ears H61.23 Open wound of right heel, initial encounter S91.301A Encounter type: initial encounter Time Spent (min) 20 Assessment & Plan Assessment & Plan (1) Impacted cerumen of both ears: Code(s): H61.23 - Impacted cerumen, bilateral Category: Medical Plan: Ordered Debrox Ear drops for 5 days. (2) Open wound of right heel: Code(s): S91.301A - Unspecified open wound, right foot, initial encounter Qualifiers: Encounter type: initial encounter Qualified Code(s): S91.301A - Unspecified open wound, right foot, initial encounter Plan: Managed by Vascular surgery and wound care nurse. Orders: Orders Influenza [id number] Immunization Today Z23 - Encounter for immunization Medications: New carbamide peroxide 6.5% (Debrox) APPLY 5 DROPS EACH EAR EVERY 12 HOURS. 5 drps otic (ears) Q12H 5 days 15 mL 0RF H61.23 - Impacted cerumen, bilateral
== END 2024-02-26 11:15 | disposition home or self-care (01) ==
PROVIDERS: PCP Internal Medicine; Visit Provider Nurse Practitioner Family
DX: H61.23 Impacted cerumen, bilateral (principal); S91.301A Unspecified open wound, right foot, initial encounter; Z23 Encounter for immunization

== ENCOUNTER → 2024-02-26 09:55 | Outpatient (BNVA) | payer MEDICARE, SELFPAY | PROVIDERS: PCP Internal Medicine; Visit Provider Nurse Practitioner Family | DX: Z23 Encounter for immunization (principal); H61.23 Impacted cerumen, bilateral; S91.301A Unspecified open wound, right foot, initial encounter | CPT/HCPCS: 90471; 90656; 99212 ==

== ENCOUNTER 2024-04-29 14:23 | Outpatient (AMB) | payer MEDICARE, SELFPAY ==
--- NOTE | 2024-04-29 14:40 | MHC.PC.OV ---
Vital Signs 04/29/24 14:44 Height 6 ft 4 in Weight 260 lb 4 oz BMI 31.7 BP 130/78 Blood Pressure Location Lt brachial Position Sitting Pulse 68 Pulse Source Pulse Oximeter Temp 97.3 F Temp Source Skin Pulse Oximetry (%) 94 Oxygen Delivery Method Room Air Intake Visit Reasons: Deonte from 01/21:CHF, a fib, DM Intake Note: Patient is here to follow up on CHF, Afib, DM. Electric Dolly Operator Required: No Telemetry Rn: Present Accompanied by: Spouse Allergies milk Allergy (Unknown, Verified 04/29/24 14:44) Unknown tramadol Adverse Reaction (Intermediate, Verified 04/29/24 14:44) tremors salt Allergy (Unknown, Uncoded 04/29/24 14:44) unknown Tobacco use date assessed: 04/29/24 Fall risk assessment: No Falls in past year Last assessed Fall Risk: 04/29/24 Dental Screening Dental Screen Date: 04/29/24 Did you have a dental visit in the last 12 months?: Yes Did you have a dental problem in the last 6 months where you did not have access to dental care?: No Was dental information given to patient?: Patient has dentist HPI Deonte from 01/21:CHF, a fib, DM HPI Details The patient is an 78-year-old male presenting with a follow-up regarding multiple chronic health issues. Initially, the patient had a The patient's cardiovascular evaluation included an ultrasound in September revealing a normal heart function but noted an abdominal aortic aneurysm with an aorta measuring 4.2 cm. Although not immediately dangerous, it requires observation due to the patient's blood pressure. The patient has a history of type 2 diabetes with improved glycemic control. His most recent hemoglobin A1c decreased from 6.8 to 6.0, indicating successful management. During the course of treatment, circulation concerns were voiced related to chronic venous insufficiency, with varicosities and discoloration noted in the lower extremities. The patient has been advised against prolonged periods with legs hanging down and has been instructed on limb elevation. Ear hygiene concerns related to ear wax impaction have been discussed, impacting the patient's balance at times. [facility] Medical History (Updated 04/29/24 @ 15:21 by David Elena MD) Impacted cerumen of left ear Phlebitis Chronic kidney disease Gout Tubular adenoma of colon DKA (diabetic ketoacidosis) Cardiomyopathy Congestive heart failure Asthma Obesity (BMI 30-39.9) Pulmonary nodule Skin cancer Renal mass Obstructive sleep apnea Atrial fibrillation Tubular adenoma of colon Prostate cancer Osteoarthritis of knee GERD (gastroesophageal reflux disease) Prostatism Cholelithiasis Diabetes mellitus type II, uncontrolled Surgical History (Updated 04/29/24 @ 14:55 by RAJI Durand) History of left hip replacement History of left knee replacement History of prostatectomy H/O left inguinal hernia repair S/P laparoscopic surgery Hx of tonsillectomy H/O arthroscopic knee surgery Family History Father CAD (coronary artery disease) Hypertension CVD (cardiovascular disease) Mother Breast cancer Spleen cancer Brother Diabetes Social History Housing: House Alcohol intake: current Alcohol intake frequency: holidays/special occasions only Patient Tobacco Use Status: Never used Tobacco e-Cigarette/Vaping Use: Never Used Second Hand Smoke Exposure: No service: No Current occupational status: retired Cognitive needs: Yes (walker) Hearing needs: No Vision needs: Yes Questionnaire PHQ-9 Over the last 2 weeks, how often have you been bothered by any of the following problems? 1. Little interest or pleasure in doing things: not at all 2. Feeling down, depressed, or hopeless: not at all 3. Trouble falling or staying asleep, or sleeping too much: not at all 4. Feeling tired or having little energy: not at all 5. Poor appetite or overeating: not at all 6. Feeling bad about yourself - or that you are a failure or have let yourself or your family down: not at all 7. Trouble concentrating on things, such as reading the newspaper or watching television: not at all 8. Moving or speaking so slowly that other people could have noticed. Or the opposite - being so fidgety or restless that you have been moving around a lot more than usual: not at all 9. Thoughts that you would be better off or of hurting yourself in some way: not at all Total score: 0 Depression Screening Interpretation: Negative Depression Screening Done: Yes Source: Developed by Drs. Nicholas Dennis, Catherine Mireles, Anuj Magallanes and colleagues, with an educational qing from [employer]. Thrive Questionnaire Date Thrive assessed: 04/29/24 I am a: Patient What is your living situation today?: I have a steady place to live Within the past 12 months, did the food you bought not last and you didn't have the money to get more?: Never true Within the past 12 months, did you worry whether your food would run out before you got money to buy more?: Never true Do you have trouble paying for medicines?: No Do you have trouble getting transportation to medical appointments?: No Do you have trouble paying your heating and electricity bill?: No Do you have trouble taking care of your child, family member or friend?: No Do you have trouble with day-to-day activities such as bathing, preparing meals, shopping, managing finances, etc.?: No Are you currently unemployed and looking for a job?: No Are you interested in more education?: No Please select the resources that you would like help with: None Currently or been in a relationship where the following occur: No concerns reported THRIVE Score: 0 AUDIT C Alcohol Use Questionnaire (AUDIT-C) 1. How often do you have a drink containing alcohol?: Never Total Score: 0 DELROY-7 AMB Questionnaire DELROY-7 Date DELROY - 7 assessed: 04/29/24 Feeling nervous, anxious, or on edge: 0 = Not at all Not being able to stop or control worryin = Not at all Worrying too much about different things: 0 = Not at all Trouble relaxin = Not at all Being so restless that it is hard to sit still: 0 = Not at all Becoming easily annoyed or irritable: 0 = Not at all Feeling afraid as if something awful might happen: 0 = Not at all Total DELROY-7 score (0-4 normal; 5-9 mild; 10-14 moderate; 15-21 severe): 0 Source: Developed by Drs. Nicholas Dennis, Catherine Mireles, Anuj Magallanes and colleagues, with an educational qing from [employer]. Physical exam (Primary Care) Vital Signs: Last Vital Signs Temp 97.3 F 04/29/24 14:44 Pulse 68 04/29/24 14:44 BP 130/78 04/29/24 14:44 Pulse Ox 94 04/29/24 14:44 Oxygen Delivery Method Room Air 04/29/24 14:44 BMI result Body Mass Index 31.7 Tobacco/Smoking Status: Tobacco use Status Tobacco use date assessed 04/29/24 04/29/24 14:57 Patient Tobacco Use Status Never used Tobacco 04/29/24 14:41 e-Cigarette/Vaping Use Never Used 04/29/24 14:41 PHQ-9: PHQ-9 Score PHQ-9: Total score 0 04/29/24 15:09 Depression Screening Interpretation: Negative Thrive Assessment: Date of Thrive Assessment Date Thrive assessed 04/29/24 04/29/24 14:57 Currently or been in a relationship where the following occur: No concerns reported Const General: alert; No acute distress Eyes Conjunctivae: conjunctivae normal Resp Auscultation: clear to auscultation bilaterally Cardio Rate: regular rate Rhythm: regular rhythm GI Inspection: Yes normal to inspection Skin Other: R leg on plastic but declined to open as they just wrap this, noted engorged veins Results AMB Hemoglobin A1c AMB Hemoglobin A1c 6.0 % Last Edit by RAJI Durand on 04/29/24 14:58 Results Reviewed Results Reviewed: Laboratory Last Values Hgb A1c (Clinic) 6.0 % (4.0-6.0) 04/29/24 14:40 Coding Level of Care Code Est Pt Level 4 (63095) Complex EM visit Add On G2211 Diagnoses Ascending aorta dilatation I77.810 Type 2 diabetes mellitus with hyperglycemia, without long-term current use of insulin E11.65 Diabetes mellitus mcc insulin use: without mcc use Paroxysmal atrial fibrillation I48.0 Atrial fibrillation type: paroxysmal Gastroesophageal reflux disease without esophagitis K21.9 Esophagitis presence: without esophagitis Obesity (BMI 30-39.9) E66.9 Generalized anxiety disorder F41.1 Hypercholesterolemia E78.00 Stage 3a chronic kidney disease N18.31 Chronic kidney disease stage 3 subtype: stage 3a (GFR 45-59) Ulcer of right heel L97.419 Impacted cerumen of left ear H61.22 Assessment & Plan Assessment & Plan (1) Ascending aorta dilatation: Comment: 09/2023 4.2 cm Code(s): I77.810 - Thoracic aortic ectasia Category: Medical (2) Type 2 diabetes mellitus with hyperglycemia: Comment: [facility] Code(s): E11.65 - Type 2 diabetes mellitus with hyperglycemia Category: Medical Qualifiers: Diabetes mellitus intermission coordinator insulin use: without intermission coordinator use Qualified Code(s): E11.65 - Type 2 diabetes mellitus with hyperglycemia Plan: Decrease the amount of carbohydrate intake, pasta, bread, rice and potatoes are all sugar and that is aside from all the sweet stuff, remember that fruits are good but they are Sweet also. patient is on Farxiga, Lantus NovoLog. (3) Atrial fibrillation: Comment: December 2017, ejection fraction 20-25% doctor JOSS, yang EF 25% dilated aorta [address] Riccardo Banegas congestive heart failure program cardioverted February 2018 Code(s): I48.91 - Unspecified atrial fibrillation Category: Medical Qualifiers: Atrial fibrillation type: paroxysmal Qualified Code(s): I48.0 - Paroxysmal atrial fibrillation Plan: Continue with anticoagulation and will need renal function checked regularly (4) GERD (gastroesophageal reflux disease): Code(s): K21.9 - Gastro-esophageal reflux disease without esophagitis Category: Medical Qualifiers: Esophagitis presence: without esophagitis Qualified Code(s): K21.9 - Gastro-esophageal reflux disease without esophagitis Plan: Avoid the foods that causes that usually spicy foods, tomato products, juices, coffee, soda and foods that your sensitive to. After eating do not lie down, allow 3-4 hours before in lie down. And keep the head of bed above 30 degrees to avoid the acid from going up. (5) Obesity (BMI 30-39.9): Code(s): E66.9 - Obesity, unspecified Category: Medical Plan: Diet and exercise (6) Generalized anxiety disorder: Code(s): F41.1 - Generalized anxiety disorder Category: Medical Plan: Continue with present medication (7) Hypercholesterolemia: Code(s): E78.00 - Pure hypercholesterolemia, unspecified Category: Medical Plan: Avoid fried foods, chicken skin, eggs, butter margarine, pastries and meat. Be it pork or beef they have a lot of cholesterol on atorvastatin 10 mg at bedtime LDL goal of less than 100 (8) CKD (chronic kidney disease) stage 3, GFR 30-59 ml/min: Code(s): N18.30 - Chronic kidney disease, stage 3 unspecified Category: Medical Qualifiers: Chronic kidney disease stage 3 subtype: stage 3a (GFR 45-59) Qualified Code(s): N18.31 - Chronic kidney disease, stage 3a Plan: Keep well hydrated and avoid NSAIDs (9) Ulcer of right heel: Comment: 10/2023 Code(s): L97.419 - Non-pressure chronic ulcer of right heel and midfoot with unspecified severity Category: Medical Plan: patient is being seen by wound care (10) Impacted cerumen of left ear: Code(s): H61.22 - Impacted cerumen, left ear Category: Medical Plan: Ear drop sent in Plan - - - Observe the abdominal aortic aneurysm with regular monitoring and focus on achieving optimal blood pressure control. - Maintain dietary and exercise recommendations to continue A1c improvement for type 2 diabetes mellitus. - Manage chronic venous insufficiency by elevating legs, reducing prolonged sitting with legs hanging down, and consider compression therapy. - Address ear wax impaction through scheduled cleanings and provide potential for using ear drops with a solution of peroxide and water for home care. Patient was informed and verbally consented to the use of an ambient scribe for clinic note documentation during this visit. Orders: Orders AMB Hemoglobin A1c Today E11.65 - Type 2 diabetes mellitus with hyperglycemia Thyroid Stimulating Hormone 3 Months E11.65 - Type 2 diabetes mellitus with hyperglycemia Lipid Panel 3 Months E11.65 - Type 2 diabetes mellitus with hyperglycemia, E78.00 - Pure hypercholesterolemia, unspecified Ferritin 3 Months E11.65 - Type 2 diabetes mellitus with hyperglycemia IRON PROFILE 3 Months E11.65 - Type 2 diabetes mellitus with hyperglycemia Vitamin B12 and Folate 3 Months E11.65 - Type 2 diabetes mellitus with hyperglycemia Erythrocyte Sedimentation Rate 3 Months E11.65 - Type 2 diabetes mellitus with hyperglycemia Free T4 (Free Thyroxine) 3 Months E11.65 - Type 2 diabetes mellitus with hyperglycemia Comprehensive Met. Panel 3 Months E11.65 - Type 2 diabetes mellitus with hyperglycemia Referrals Podiatry Referral E11.65 - Type 2 diabetes mellitus with hyperglycemia Medications: Refilled carbamide peroxide 6.5% (Debrox) APPLY 5 DROPS EACH EAR EVERY 12 HOURS. 5 drps otic (ears) Q12H 5 days 15 mL 0RF H61.23 - Impacted cerumen, bilateral carbamide peroxide 6.5% (Debrox) APPLY 5 DROPS EACH EAR EVERY 12 HOURS. 5 drps otic (ears) Q12H 15 mL 2RF 5 days H61.23 - Impacted cerumen, bilateral
[2024-04-29 14:44] VITALS: BP 130/78; PULSE 68; TEMP 36.3; O2SAT 94; BMI 31.7
== END 2024-04-29 15:45 | disposition home or self-care (01) ==
PROVIDERS: PCP Internal Medicine; Visit Provider Internal Medicine
DX: E11.65 Type 2 diabetes mellitus with hyperglycemia (principal); I77.810 Thoracic aortic ectasia; I48.0 Paroxysmal atrial fibrillation; N18.31 Chronic kidney disease, stage 3a; L97.419 Non-pressure chronic ulcer of right heel and midfoot with unspecified severity; K21.9 Gastro-esophageal reflux disease without esophagitis; E66.9 Obesity, unspecified; Z68.31 Body mass index [BMI] 31.0-31.9, adult; F41.1 Generalized anxiety disorder; E78.00 Pure hypercholesterolemia, unspecified; H61.22 Impacted cerumen, left ear

== ENCOUNTER → 2024-04-29 14:23 | Outpatient (BNVA) | payer MEDICARE, SELFPAY | PROVIDERS: PCP Internal Medicine; Visit Provider Internal Medicine | DX: I77.810 Thoracic aortic ectasia (principal); E11.65 Type 2 diabetes mellitus with hyperglycemia; I48.0 Paroxysmal atrial fibrillation; K21.9 Gastro-esophageal reflux disease without esophagitis; E66.9 Obesity, unspecified; F41.1 Generalized anxiety disorder; E78.00 Pure hypercholesterolemia, unspecified; N18.31 Chronic kidney disease, stage 3a; L97.419 Non-pressure chronic ulcer of right heel and midfoot with unspecified severity; H61.22 Impacted cerumen, left ear | CPT/HCPCS: 83036; 99212 ==

== ENCOUNTER 2024-07-29 14:34 | Outpatient (AMB) | payer MEDICARE, SELFPAY ==
[2024-07-29 14:39] VITALS: BP 114/56; PULSE 69; TEMP 36.3; O2SAT 92; BMI 34.0
--- NOTE | 2024-07-29 14:39 | MHC.PC.OV ---
Vital Signs 07/29/24 14:39 Height 6 ft 4 in Weight 279 lb 1.683 oz BMI 34.0 BP 114/56 L Blood Pressure Location Lt brachial Position Sitting Pulse 69 Pulse Source Pulse Oximeter Temp 97.3 F Temp Source Temporal Artery Scan Pulse Oximetry (%) 92 Oxygen Delivery Method Room Air Intake Visit Reasons: DM Contact Lens Blocker Required: No Accompanied by: Spouse Allergies milk Allergy (Unknown, Verified 07/29/24 14:59) Unknown tramadol Adverse Reaction (Intermediate, Verified 07/29/24 14:59) tremors salt Allergy (Unknown, Uncoded 07/29/24 14:59) unknown Medication List - Last Reconciled 07/29/24 by David Elena MD acetaminophen ER (Tylenol 8 Hour) 650 mg PO Q8H albuterol sulfate 90 mcg/actuation (Ventolin HFA) 2 puffs inhalation Q6H PRN allopurinol 300 mg PO amiodarone 200 mg PO DAILY apixaban (Eliquis) 5 mg PO BID atorvastatin 10 mg PO BEDTIME 30 days bisoprolol fumarate 5 mg PO DAILY 90 days blood-glucose sensor (Proxio G7 Sensor device) As directed calcium carbonate 600 mg PO DAILY cholecalciferol (vitamin D3) (Vitamin D3) 25 mcg PO DAILY cyanocobalamin (vitamin B-12) (Vitamin B-12) 500 mcg PO DAILY dapagliflozin propanediol (Farxiga) 5 mg PO DAILY eplerenone 25 mg PO DAILY 90 days flash glucose scanning reader ([place] [employer]Style Henry 14 Day Oliver) As directed flash glucose sensor (FreeStyle Henry 14 Day Sensor kit) As directed insulin glargine (Lantus Solostar U-100 Insulin) 16 units subcut QPM lidocaine 5% 1 appl topical BID PRN lisinopril 5 mg PO DAILY Novolog FlexPen U-100 Insulin (insulin aspart U-100) 5 units (0.05 mL) subcut TID NS pen needle, diabetic (BD Ultra-Fine Mini Pen Needle) USE DIRECTED TO INJECT INSULIN FOUR TIMES PER DAY [rollator As directed] [BETHANY LIFT As directed] sertraline 25 mg PO DAILY torsemide 20 mg (2 x 10 mg) PO DAILY trazodone 25 mg PO BEDTIME PRN Tobacco use date assessed: 07/29/24 Fall risk assessment: No Falls in past year Last assessed Fall Risk: 07/29/24 Dental Screening Dental Screen Date: 07/29/24 Did you have a dental visit in the last 12 months?: Yes Did you have a dental problem in the last 6 months where you did not have access to dental care?: No Was dental information given to patient?: Patient has dentist [facility] Medical History (Updated 04/29/24 @ 15:21 by David Elena MD) Impacted cerumen of left ear Phlebitis Chronic kidney disease Gout Tubular adenoma of colon DKA (diabetic ketoacidosis) Cardiomyopathy Congestive heart failure Asthma Obesity (BMI 30-39.9) Pulmonary nodule Skin cancer Renal mass Obstructive sleep apnea Atrial fibrillation Tubular adenoma of colon Prostate cancer Osteoarthritis of knee GERD (gastroesophageal reflux disease) Prostatism Cholelithiasis Diabetes mellitus type II, uncontrolled Surgical History History of left hip replacement History of left knee replacement History of prostatectomy H/O left inguinal hernia repair S/P laparoscopic surgery Hx of tonsillectomy H/O arthroscopic knee surgery Family History Father CAD (coronary artery disease) Hypertension CVD (cardiovascular disease) Mother Breast cancer Spleen cancer Brother Diabetes Social History Housing: House Alcohol intake: current Alcohol intake frequency: holidays/special occasions only Patient Tobacco Use Status: Never used Tobacco e-Cigarette/Vaping Use: Never Used Second Hand Smoke Exposure: No service: No Current occupational status: retired Cognitive needs: Yes (walker) Hearing needs: No Vision needs: Yes Questionnaire Thrive Questionnaire Date Thrive assessed: 07/29/24 I am a: Patient What is your living situation today?: I have a steady place to live Within the past 12 months, did the food you bought not last and you didn't have the money to get more?: Never true Within the past 12 months, did you worry whether your food would run out before you got money to buy more?: Never true Do you have trouble paying for medicines?: No Do you have trouble getting transportation to medical appointments?: No Do you have trouble paying your heating and electricity bill?: No Do you have trouble taking care of your child, family member or friend?: No Do you have trouble with day-to-day activities such as bathing, preparing meals, shopping, managing finances, etc.?: No Are you currently unemployed and looking for a job?: No Are you interested in more education?: No Please select the resources that you would like help with: None Currently or been in a relationship where the following occur: No concerns reported THRIVE Score: 0 AUDIT C Alcohol Use Questionnaire (AUDIT-C) 1. How often do you have a drink containing alcohol?: Never Total Score: 0 DELROY-7 AMB Questionnaire DELROY-7 Date DELROY - 7 assessed: 04/29/24 Source: Developed by Drs. Nicholas Dennis, Catherine Mireles, Anuj Magallanes and colleagues, with an educational qing from [employer]. Physical exam (Primary Care) Vital Signs: Last Vital Signs Temp 97.3 F 07/29/24 14:39 Pulse 69 07/29/24 14:39 BP 114/56 L 07/29/24 14:39 Pulse Ox 92 07/29/24 14:39 Oxygen Delivery Method Room Air 07/29/24 14:39 BMI result Body Mass Index 34.0 Tobacco/Smoking Status: Tobacco use Status Tobacco use date assessed 07/29/24 07/29/24 14:43 Patient Tobacco Use Status Never used Tobacco 07/29/24 14:43 e-Cigarette/Vaping Use Never Used 07/29/24 14:43 Thrive Assessment: Date of Thrive Assessment Date Thrive assessed 07/29/24 07/29/24 14:43 Currently or been in a relationship where the following occur: No concerns reported Const General: alert; No acute distress Eyes Conjunctivae: conjunctivae normal Resp Auscultation: clear to auscultation bilaterally Cardio Rate: regular rate Rhythm: regular rhythm GI Inspection: Yes normal to inspection Extrem General: Yes normal to inspection and No edema Office Procedures Diabetes Self Management Details Details: Patient in room awaiting Dr Elena visit and reports not feeling well with blood sugar dropping to 75 on CGM then to 65 Glusose tabs given x2 with patient feeling better and blood sugar increased to 87 Dr Elena in and aware [id number] Self Management Training, individual Results AMB Hemoglobin A1c AMB Hemoglobin A1c 5.9 % Last Edit by Aurora Morocho CMA on 04/22/25 15:10 Results Reviewed Results Reviewed: Laboratory Last Values Hgb A1c (Clinic) 5.9 % (4.0-6.0) 07/29/24 15:09 Coding Level of Care Code Est Pt Level 4 (72423) Complex EM visit Add On G2211 Diagnoses Paroxysmal atrial fibrillation I48.0 Atrial fibrillation type: paroxysmal Obstructive sleep apnea G47.33 Obesity (BMI 30-39.9) E66.9 Ischemic cardiomyopathy I25.5 Cardiomyopathy type: ischemic Generalized anxiety disorder F41.1 Type 2 diabetes mellitus with hyperglycemia, without long-term current use of insulin E11.65 Diabetes mellitus alf insulin use: without alf use Hypercholesterolemia E78.00 Congestive heart failure I50.9 Heart failure type: systolic Stage 3a chronic kidney disease N18.31 Chronic kidney disease stage 3 subtype: stage 3a (GFR 45-59) CPT Codes Details - Diabetes Self Management: [id number] Self Management Training, individual ([id number]) Assessment & Plan Assessment & Plan (1) Atrial fibrillation: Comment: December 2017, ejection fraction 20-25% doctor JOSS, yang EF 25% dilated aorta [address] Riccardo Banegas congestive heart failure program cardioverted February 2018 Code(s): I48.91 - Unspecified atrial fibrillation Category: Medical Qualifiers: Atrial fibrillation type: paroxysmal Qualified Code(s): I48.0 - Paroxysmal atrial fibrillation Plan: Continuing with apixaban 5 mg twice a day need to have blood work done and amiodarone (2) Obstructive sleep apnea: Comment: December 2017 cannot tolerate CPAP 01/2020 Code(s): G47.33 - Obstructive sleep apnea (adult) (pediatric) Category: Medical Plan: Patient can not tolerate CPAP (3) Obesity (BMI 30-39.9): Code(s): E66.9 - Obesity, unspecified Category: Medical Plan: Diet and exercise (4) Cardiomyopathy: Code(s): I42.9 - Cardiomyopathy, unspecified Category: Medical Qualifiers: Cardiomyopathy type: ischemic Qualified Code(s): I25.5 - Ischemic cardiomyopathy Plan: Continue with bisoprolol eplerenone and torsemide. Weigh daily (5) Generalized anxiety disorder: Code(s): F41.1 - Generalized anxiety disorder Category: Medical Plan: Continuing with sertraline (6) Type 2 diabetes mellitus with hyperglycemia: Comment: Dr[facility] [place] Code(s): E11.65 - Type 2 diabetes mellitus with hyperglycemia Category: Medical Qualifiers: Diabetes mellitus equipment operator intermodal yard insulin use: without equipment operator intermodal yard use Qualified Code(s): E11.65 - Type 2 diabetes mellitus with hyperglycemia Plan: Decrease the amount of carbohydrate intake, pasta, bread, rice and potatoes are all sugar and that is aside from all the sweet stuff, remember that fruits are good but they are Sweet also. Hemoglobin A1c goal of less than 7.0. Patient on Farxiga 5 mg once a day Lantus at 42 units once a day NovoLog sliding scale (7) Hypercholesterolemia: Code(s): E78.00 - Pure hypercholesterolemia, unspecified Category: Medical Plan: Avoid fried foods, chicken skin, eggs, butter margarine, pastries and meat. Be it pork or beef they have a lot of cholesterol LDL goal of less than 100 and triglyceride of less than 150 on atorvastatin 10 mg at bedtime (8) Congestive heart failure: Code(s): I50.9 - Heart failure, unspecified Category: Medical Qualifiers: Heart failure type: systolic Plan: Continue with diuretics and beta emeterio blood work requested (9) CKD (chronic kidney disease) stage 3, GFR 30-59 ml/min: Code(s): N18.30 - Chronic kidney disease, stage 3 unspecified Category: Medical Qualifiers: Chronic kidney disease stage 3 subtype: stage 3a (GFR 45-59) Qualified Code(s): N18.31 - Chronic kidney disease, stage 3a Plan History of Present Illness The patient is an 79-year-old male presenting for follow-up. The history includes multiple chronic illnesses such as diabetes mellitus, manifesting in past ulcerations needing surgical intervention. The patient reports 19-pound weight gain since April 2024, potentially due to dietary habits amidst congestive heart failure. Past treatment interventions include cardiology consultations and diabetic heel debridement. Hemoglobin A1c is controlled at 6.0. Still, the patient experiences frequent episodes of low blood sugars, indicating a need for adjustment in diabetic management regarding insulin therapy. Anxiety issues have been addressed, and medication adjustments have been discussed. Health Maintenance - Mediterranean diet recommended. - Blood glucose monitoring advised with target A1c levels less than 7.0. - LDL goal less than 100 mg/dL and triglycerides less than 150 mg/dL. - Regular cardiology consultations. - Encouraged weight management and dietary modifications. Social History - Patient is engaged in regular physical therapy; usage of a cane and walker due to mobility concerns. - Reports on exercise routine and the significance of family support in managing health conditions. - Current adherence to dietary recommendations tailored for cardiovascular and diabetes management. Review of Systems - Cardiovascular: Reports weight gain, history of atrial fibrillation and congestive heart failure. - Respiratory: Reports obstructive sleep apnea, intol?janna to CPAP. - Endocrine: Reports history of diabetes mellitus. - Musculoskeletal: Reports usage of walker and cane for mobility. - Psychiatric: Reports general anxiety disorder. Physical Exam - General- Well-nourished, alert. - Respiratory- Lungs sound clear upon auscultation. Results - Labs: Hemoglobin A1c 6.0; Hemoglobin 13.1; Platelet count 42.2. - Tests: Blood glucose levels and cholesterol levels as previous records. Plan Management includes diabetes insulin adjustments in collaboration with endocrinology, a continuation of cardiac medications to stabilize atrial fibrillation and heart failure, encouragement of the Mediterranean diet to address hypercholesterolemia, and weight management strategies. Increased sertraline is advised to manage anxiety levels, with anticipated improvements through regular mobility exercises. All the current medications and treatment plans will be monitored closely, especially concerning the patient's tolerance and response to adjustments. Patient was informed and verbally consented to the use of an ambient scribe for clinic note documentation during this visit. Discussion Notes We discussed adjusting the patient?s insulin regimen to maintain balanced blood glucose levels, reducing the risk for hypoglycemia. The importance of monitoring weight gain, particularly given the history of heart conditions, was emphasized. I advised a Mediterranean diet to support cholesterol management and overall cardiovascular health. Increasing the dose of sertraline was suggested to help with anxiety. Furthermore, we reviewed the necessity of ongoing cardiology care and regular physical therapy sessions. Patient education on medication adherence, lifestyle adjustments, and follow-up plans for blood work and endocrinology consultations were reiterated to ensure comprehensive management. Patient Instructions - Follow the Mediterranean diet as recommended. - Monitor blood sugar levels regularly and report significant changes. - Continue the prescribed insulin regimen with adjustment as directed. - Adhere to physical therapy exercises regularly. - Take medications as prescribed, especially for heart and anxiety management. - Stay hydrated, avoiding NSAIDs for kidney health. - Attend all scheduled follow-up appointments, including cardiology and endocrinology consultations. - Report any new or worsening symptoms, particularly related to heart health or blood sugar levels. Orders: Orders AMB Hemoglobin A1c Today E11.65 - Type 2 diabetes mellitus with hyperglycemia Medications: Changed From Novolog FlexPen U-100 Insulin (insulin aspart U-100) Or as directed 5 units (0.05 mL) subcut TID 15 mL 11RF NS E11.65 - Type 2 diabetes mellitus with hyperglycemia To Novolog FlexPen U-100 Insulin (insulin aspart U-100) Or as directed according sliding scale 5 units (0.05 mL) subcut TID 15 mL 11RF NS E11.65 - Type 2 diabetes mellitus with hyperglycemia From sertraline 25 mg PO DAILY 90 tabs 3RF F41.1 - Generalized anxiety disorder To sertraline 50 mg PO DAILY 30 tabs 3RF F41.1 - Generalized anxiety disorder Patient Instructions: Keep well hydrated, avoid NSAIDs
--- OUTSIDE RECORDS SUMMARY | 2024-07-29 17:26 | XMS_ITS | Clinical Summary ---
Author Organization [facility] Address [address] [place] [address] Phone Care Team Providers Care Mechanotherapist Name Role Phone David Elena MD Primary Care Provider [phone] Allergies Active Allergy Reactions Criticality Noted Date Comments Lactose Other (see comments) 11/17/2020 Spironolactone 05/18/2021 gynecomastia Medications amiodarone (PACERONE) 200 MG tablet Take 1 tablet by mouth 1 (one) time each day Active apixaban (ELIQUIS) 5 MG tablet Take 1 tablet by mouth 2 (two) times a day Active calcium carbonate (OS-PATRIC) 600 MG tablet Take 1 tablet by mouth 1 (one) time each day Active cholecalcifero l (VITAMIN D-3) 25 MCG (1000 UT) capsule Take 1 capsule by mouth 1 (one) time each day Active cyanocobalamin 500 MCG tablet Take 1 tablet by mouth 1 (one) time each day Active eplerenone (INSPRA) 25 MG tablet Take 1 tablet by mouth 1 (one) time each day Active lisinopril 5 MG tablet Take 1 tablet by mouth 1 (one) time each day Active torsemide (DEMADEX) 10 MG tablet Take 2 tablets by mouth every morning Active bisoprolol (ZEBETA) 5 MG tablet Take 1 tablet by mouth 1 (one) time each day 1 Active digoxin (LANOXIN) 125 MCG tablet Take 0.5 tablets by mouth 1 (one) time each day 1 Active Lantus SoloStar 100 UNIT/ML injection INJECT 50 UNITS SUBCUTANEOUSLY DAILY AT BEDTIME 1 Active HumaLOG KWIKPEN 100 UNIT/ML solution pen-injector INJECT 12-22 UNITS SUBCUTANEOUSLY 3 TIMES A DAY BEFORE MEALS ACCORDING TO SLIDING SCALE 1 Active atorvastatin (LIPITOR) 10 MG tablet Take 10 mg by mouth at bed time 2 Active NovoLOG FLEXPEN 100 UNIT/ML injection 3 Active allopurinol (ZYLOPRIM) 100 MG tablet TAKE 3 TABLETS (300 MG TOTAL) BY MOUTH EVERY DAY 270 tablet 3 4 Active Active Problems Problem Noted Date Diagnosed Date Acquired hallux rigidus 12/28/2021 Primary gout 12/28/2021 Atherosclerosis of [place] arteries of the extrem ities 05/18/2021 Diabetes mellitus 05/18/2021 Localized, primary osteoarthritis of the ankle a nd/or foot 05/18/2021 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 05/18/2021 Obese class I 05/18/2021 Polyneuropathy due to type 2 diabetes mellitus 0 05/18/2021 Hypertension 05/18/2021 Acute nontraumatic kidney injury 11/17/2020 Acute nontraumatic kidney injury 11/17/2020 Blood in urine 11/17/2020 Stage 3a chronic kidney disease 11/17/2020 Hypertensive disorder 11/17/2020 Congestive heart failure 11/17/2020 Oliguria 11/17/2020 Immunizations Immunization Administration Dates Next Due Influenza (IM) Preservative Free 01/25/2021 Moderna SARS-COV-2 03/17/2021 Family History Medical History Relation Comments Heart disease Father Hypertension Father Cancer Mother Diabetes Sibling Relation Status Comments Father Mother Sibling Social History Tobacco Use Types Packs/Day Years Used Date Smoking Tobacco: Never Smokeless Tobacco: Never Tobacco Cessation:Counseling Given: Not Answered Alcohol Use Standard Drinks/Week Comments No 0 (1 standard drink = 0.6 oz pur e alcohol) Sex and Gender Information Value Date Recorded Sex Assigned at Not on file Legal Sex Male 4:52 PM EST Gender Identity Not on file Sexual Orientation Not on file Last Filed Vital Signs Vital Sign Reading Time Taken Comments Blood Pressure 130/62 08/02/2022 2:01 PM EDT Pulse 68 08/02/2022 2:01 PM EDT Temperature - - Respiratory Rate - - Oxygen Saturation 95% 05/18/2021 3:11 PM EST Inhaled Oxygen Concentration - - Weight 135 kg (298 lb) 08/02/2022 2:01 PM EDT Height 193 cm (6' 4 ) 11/14/2019 12:00 PM EDT Body Mass Index 36.27 11/14/2019 12:00 PM EDT Plan of Treatment Health Maintenance Due Date Last Done Comments Pneumococcal Vaccine: 50+ Ye ars (1 of 2 - PCV) 1964 Diabetes: Hemoglobin A1C 05/18/2021 Diabetes: Ophthalmology Exam 05/18/2021 Diabetes: Pedal Pulse Checked 05/18/2021 Diabetes: Sensory Foot Exam 05/18/2021 Diabetes: Visual Foot Exam 05/18/2021 Influenza Vaccine (Season Ended) 2024 01/26/20 21 Hepatitis B Vaccine Aged Out No longe r eligible based on patient's age to complete this topic [place] [address] [place] [address] Care Teams Mechanotherapist Relationship Specialty Start Date End Date David Elena MD [facility] [id number] [place] PCP - General 04/19/20
--- OUTSIDE RECORDS SUMMARY | 2024-07-29 17:26 | XMS_ITS ---
[facility] Address [address] [place] [address] Care Team Providers Care Food Service Cashier Name Role Phone David Elena Primary Care Provider Manuel Iyer Unavailable [phone] Allergies Allergen (clinical drug ingredient) Drug/Non Drug Allergy documented on EMR Reaction Allergy Type Onset Date Status salt (uncoded) headaches Allergy Activ e lactose Lactose (Intolerance) headaches Drug Allergy Active REASON FOR VISIT Painful nail(s) aggrevated by shoes and causing difficulty standing/walking. Medications Medication SIG (Take, Route, Frequency, Duration) Notes Start Date End Date Status Custom Orthotics as directed A ctive Colcrys 0.6 MG 1 tablet Orally once a day for 10 days 09/13/2021 Active amLODIPine Besylate 10 MG TAKE 1 TABLET BY MOUTH EVERY DAY ONCE A DAY ORALLY 90 DAYS Oral for 90 Not-Taking Vitamin D-[address] 1000 UNIT TAKE 1 TABLET BY MOUTH ONCE A DAY Oral for 30 Not-Taking [facility] Calcium 1500 (600 Ca) MG TAKE 1 TABL ET BY MOUTH EVERY DAY WITH A MEAL Oral for 30 Not-Taking Extra Depth Diabetic Shoes with 3 Pair Custom heat-molded multi-density innersoles for 1 year Dx: 09/29/2020 Active Lisinopril 5 MG 1 tablet Orally Once a day for 30 day(s) Active Vitamin B12 Active Vitamin D3 Active Torsemide 10 MG 1 tablet Orally Once a day for 30 day(s) Active Eplerenone 25 MG 1 tablet Orally Once a day for 30 day(s) Active Extra Depth Diabetic Shoes with 3 Pair Custom heat-molded multi-density innersoles for 1 year Dx: Active HumaLOG KwikPen Acti ve Lantus Active Eliquis 5 MG as directed Orally Active Bisoprolol Fumarate 5 MG 1 tablet Orally Once a day for 30 day(s) Active Calcium 600 MG 1 tablet with meals Orally Twice a day for 30 day(s) Active Digoxin 125 MCG as directed Orally Active Amiodarone HCl 200 MG 1 tablet Orally Once a day for 30 day(s) Active Atorvastatin Calcium 10 MG 1 tablet Oral ly Once a day Active Allopurinol 300 MG 1 tablet Orally Once a day for 30 day(s) Active Losartan Potassium 100 MG TAKE 1 TABLET BY MOUTH ONCE A DAY Oral for 90 Not-Taking Gas Relief Not-Takin g Keflex 500 MG 1 capsule Orally every 12 hrs for 7 days 07/17/2016 Not-Taking hydroCHLOROthiazide 25 MG TAKE 1 TABLET ONCE A DAY ORALLY 90 DAYS Oral for 90 Not-Taking Social History Tobacco Use: Social History Observation Description Date Details (start date - stop date) Never Smoker NA - NA Tobacco Use/Smoking Question Answer Notes Are you a: nonsmoker Alcohol Screen Question Answer Notes Did you have a drink containing alcohol in the p ast year? No Points 0 Interpretation Negative Tobacco use other than smoking: Question Answer Notes Are you an other tobacco user? No Vital Signs Height 6 ft 3 in in 07/30/2023 Weight 295 lbs 07/30/2023 BMI 36.87 kg/m2 07/30/2023 Encounters Encounter Location Date Provider Diagnosis [facility] [address] [address] 07/30/2023 Manuel Lira Tinea unguium B35.1 ; Pain in right toe(s) M79.674 ; Pain in left toe(s) M79.675 ; Type 2 diabetes mellitus with diabetic polyneuropathy E11.42 ; Unspecified atherosclerosis of [place] arteries of extremities, bilateral legs I70.203 ; Ingrowing nail L60.0 ; Plantar fascial fibromatosis M72.2 ; Primary osteoarthritis, left ankle and foot M19.072 ; Primary osteoarthritis, right ankle and foot M19.071 ; Idiopathic gout, left ankle and foot M10.072 and Hallux rigidus, left foot M20.22 Assessments Encounter Date Diagnosis (ICD Code) Assessment Notes Treatment Notes Treatment Clinical Notes Section Notes 07/30/2023 Tinea unguium (ICD-10 - B35.1) 07/30/2023 Pain in right toe(s) (ICD-10 - M79.674) 07/30/2023 Pain in left toe(s) (ICD-10 - M79.675) 07/30/2023 Type 2 diabetes mellitus with diabetic polyneuropathy (ICD-10 - E11.42) 07/30/2023 Unspecified atherosclerosis of [place] arteries of extremities, bilateral legs (ICD-10 - I70.203) 07/30/2023 Ingrowing nail (ICD-10 - L60.0) 07/30/2023 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) 07/30/2023 Primary osteoarthritis, left ankle and foot (ICD-10 - M19.072) 07/30/2023 Primary osteoarthritis, right ankle and foot (ICD-10 - M19.071) 07/30/2023 Idiopathic gout, left ankle and foot (ICD-10 - M10.072) 07/30/2023 Hallux rigidus, left foot (ICD-10 - M20.22) Plan Of Treatment Medication Medication Name Sig Start Date Stop Date Notes Extra Depth Diabetic Shoes w ith 3 Pair Custom heat-molded multi-density innersoles for 1 year Dx: Next Appt Details Follow Up: prn, Reason: Provider Name:Mercedes mei, 08/05/2024 09:00:00 AM, [address] [place] [address], [id number], Procedure Notes * Category Sub-Category Detail Notes Debride Nail 6-10 Nail debridement Nail debridem ent performed extensively to reduce/remove overall nail length and girth, subungual debris, and necrotic tissue, by manual and electrical means with use of a nail nipper and/or dremel, to more viable healthy nail plate or bed tissue 6-10. Silver nitrate used for any petechial bleeding as necessary. Patient chooses, no pharmaceutical tx (52905) Keratoma Treatment Parring or Cutting o f Benign Hyperkeratotic Lesion(s) 57484 (2-4 Lesions) - The Benign hyperkeratotic lesions, as described above were pared, and/or cut utilizing a sterile #15 blade, tissue nippers, and/or dremel Progress Notes * Harry COATS LDOB: (78 yo M)Acc No.[id number]:07/30/2023 Progress Note Patient:?Harry Coats Provider:?Manuel Lira DPM :1945???Age:78 Y???Sex:Male Ashish e:07/30/2023 Address:[address] [place], [place] [id number] Pcp:David Elena Subjective: * Chief Complaints: * ??? Painful nail(s) aggrevat ed by shoes and causing difficulty standing/walking. * HPI: ???Painful Nails:?Pt States Last PCP Visit:?Date:?05/31/2023 ???Foot Pain:?Nature:?aching, swelling.?Location:?LEFT, Rearfoot/ankle.?Duration:?1 year or more.?Onset:?gout.?Course:?intermittent.? * ROS:?General/Constitutional:?Nausea?denies.?Vomiting?denies.?Hunger Thirst?admits.?Loss appetite?denies.?Chills?denies.?Fatigue?denies.?Fever?denies.?Night Sweats?denies.?Unexplained weight loss?denies.?Unexplained weight gain?denies.?HEENTM:?Dentures?denies.?Dizziness?denies.?Glasses/contacts?admits.?Retinopathy?de nies.?Blurred/double vision?denies.?TMJ?denies.?Discharge/drainage?denies.?Implants?denies.?Sore throat?denies.?Dental implants?denies.?Hard of hearing ?admits.?Difficulty chewing/swallowing/speaking?admits.?Nose bleeds?denies.?Sore mouth?denies.?Respiratory:?On Oxygen?denies.?Pneumonia/pleurisy?denies.?Bronchitis?denies.?Emphysema?denies.?C oughing?denies.?Cough blood?denies.?Shortness of breath?denies.?Wheezing?denies.?Cardiovascular:?Pacemaker?denies.?MVP?denies.?WPW?denies.?CHF?denies.?Heart attack?denies.?Septal defect?denies.?Rapid beat?denies.?Chest pain ?denies.?Atrial Fib.?admits.?Murmur/Palpitations?denies.?Gastrointestinal:?Hemorrhoids?denies.?Stomach/Abdominal pain?denies.?Dark blood stool?denies.?Irritable bowel ?denies.?Constipation?admits.?Diarrhea?denies.?Hematology:?Swelling?denies.?Clots?denies.?Varicose Veins?denies.?Bruising?denies.?Bleeding problem?denies.?Genitourinary:?Blood urine?denies.?Frequent/Painfu/urination/bladder control?denies.?Kidney stones?denies.?Infection (UTI)?denies.?Nephropathy?denies.?sex trans dis (STD)?denies.?Prostate?denies.?Musculoskeletal:?Hammertoes?denies.?Bunions?denies.?Back Pain?admits.?Muscle Cramps/ Resting?denies.?Muscle cramps / walking?denies.?Generalized aches and pains?admits.?Weakness?denies.?Integ.:?Chavez?denies.?Scars?admits.?Corns/calluses?denies.?Ingrown nails?denies.?Painful nails?denies.?Open Sores?denies.?Rashes?denies.?Neurologic:?Difficulty sleeping?denies.?Brain disorder?denies.?Numbness?denies.?Balance trouble?denies.?Confusion?denies.?Fainting/blackouts?denies.?Tingling?denies.?Tr emors?denies.? * Medical History:? * Surgical History:?prostate 2 014 Left Knee Replacement 03/01/2016skin cancer 07/2020hernia skin cancer removal 12/07/2020 * Hospitalization/Major Diagno stic Procedure:?[facility]- 3 day stay- Sugar was 1000 11/19/2020 * Family History:?Mother: dece ased, Cancer, diagnosed with Family history of arthritis, Other malignant neoplasm of unspecified site.?Father: , heart attack, diagnosed with Unspecified essential hypertension, Unspecified heart disease.?Paternal Grand Mother: arthritis.?Maternal Grand Mother: arthritis.?Siblings: Brother, diagnosed with Diabetic - NIDDM, Unspecified essential hypertension, Other malignant neoplasm of unspecified site.?Spouse: alive.?Maternal Grand Father: diagnosed with Diabetic - NIDDM.?Maternal aunt: diagnosed with Family history of arthritis.? * Social History:?Tobacco Use:?Tobacco Use/Smoking?Are you a:?nonsmoker ?Tobacco use other than smoking?Are you an other tobacco user??No ???Drugs/Alcohol:?Drugs?Have you used drugs other than those for medical reasons in the past 12 months??No ?Alcohol Screen?Did you have a drink containing alcohol in the past year??No ?Points?0 ?Interpretation?Negative ???Miscellaneous:?Caffeine: yes, frequency:, 1-2 cups occasionally. ?Children: yes, 3. ?Exercise: yes, Beekeeping. ?Marital status: . 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 * Medications:?TakingAllopurin ol 300 MG Tablet 1 tablet Orally Once a dayAmiodarone HCl 200 MG Tablet 1 tablet Orally Once a dayAtorvastatin Calcium 10 MG Tablet 1 tablet Orally Once a dayBisoprolol Fumarate 5 MG Tablet 1 tablet Orally Once a dayCalcium 600 MG Tablet 1 tablet with meals Orally Twice a dayDigoxin 125 MCG Tablet as directed Orally Eplerenone 25 MG Tablet 1 tablet Orally Once a dayEliquis 5 MG Tablet as directed Orally HumaLOG KwikPen Lantus Lisinopril 5 MG Tablet 1 tablet Orally Once a dayVitamin B12 Vitamin D3 Torsemide 10 MG Tablet 1 tablet Orally Once a dayExtra Depth Diabetic Shoes with 3 Pair Custom heat-molded multi-density innersoles for 1 year Dx:Custom Orthotics as directed Colcrys 0.6 MG Tablet 1 tablet Orally once a dayExtra Depth Diabetic Shoes with 3 Pair Custom heat-molded multi-density innersoles for 1 year Dx:Taking Allopurinol 300 MG Tablet 1 tablet Orally Once a dayTaking Amiodarone HCl 200 MG Tablet 1 tablet Orally Once a dayTaking Atorvastatin Calcium 10 MG Tablet 1 tablet Orally Once a dayTaking Bisoprolol Fumarate 5 MG Tablet 1 tablet Orally Once a dayTaking Calcium 600 MG Tablet 1 tablet with meals Orally Twice a dayTaking Digoxin 125 MCG Tablet as directed Orally Taking Eplerenone 25 MG Tablet 1 tablet Orally Once a dayTaking Eliquis 5 MG Tablet as directed Orally Taking HumaLOG KwikPen Taking Lantus Taking Lisinopril 5 MG Tablet 1 tablet Orally Once a dayTaking Vitamin B12 Taking Vitamin D3 Taking Torsemide 10 MG Tablet 1 tablet Orally Once a dayTaking Extra Depth Diabetic Shoes with 3 Pair Custom heat-molded multi- density innersoles for 1 year Dx:Taking Custom Orthotics as directed Taking Colcrys 0.6 MG Tablet 1 tablet Orally once a dayTaking Extra Depth Diabetic Shoes with 3 Pair Custom heat-molded multi-density innersoles for 1 year Dx:Not-Taking/PRNamLODIPine Besylate 10 MG Tablet TAKE 1 TABLET BY MOUTH EVERY DAY ONCE A DAY ORALLY 90 DAYS Oral Vitamin D-[address] 1000 UNIT Tablet TAKE 1 TABLET BY MOUTH ONCE A DAY Oral [facility] Calcium 1500 (600 Ca) MG Tablet TAKE 1 TABLET BY MOUTH EVERY DAY WITH A MEAL Oral hydroCHLOROthiazide 25 MG Tablet TAKE 1 TABLET ONCE A DAY ORALLY 90 DAYS Oral Losartan Potassium 100 MG Tablet TAKE 1 TABLET BY MOUTH ONCE A DAY Oral Gas Relief Keflex 500 MG Capsule 1 capsule Orally every 12 hrsNot-Taking/PRN amLODIPine Besylate 10 MG Tablet TAKE 1 TABLET BY MOUTH EVERY DAY ONCE A DAY ORALLY 90 DAYS Oral Not-Taking/PRN Vitamin D-[address] 1000 UNIT Tablet TAKE 1 TABLET BY MOUTH ONCE A DAY Oral Not-Taking/PRN [facility] Calcium 1500 (600 Ca) MG Tablet TAKE 1 TABLET BY MOUTH EVERY DAY WITH A MEAL Oral Not-Taking/PRN hydroCHLOROthiazide 25 MG Tablet TAKE 1 TABLET ONCE A DAY ORALLY 90 DAYS Oral Not-Taking/PRN Losartan Potassium 100 MG Tablet TAKE 1 TABLET BY MOUTH ONCE A DAY Oral Not-Taking/PRN Gas Relief Not-Taking/PRN Keflex 500 MG Capsule 1 capsule Orally every 12 hrsDiscontinuedAllopurinol 300 MG Tablet 1 tablet Orally Once a dayMedication List reviewed and reconciled with the patientDiscontinued Allopurinol 300 MG Tablet 1 tablet Orally Once a dayMedication List reviewed and reconciled with the patient * Allergies:?salt: headachesLa ctose (Intolerance): headachesyes[Allergies Verified] Objective: * Vitals:?Ht: 6 ft 3 in, Wt:29 5, BMI:36.87, Shoe size:14, BS:187. * Examination: ???Nails: ?NAILS are:?Elongated, overgrown, dystrophic, lytic, greater than 3mm thick, discolored and friable with crumbly malodorous subungual debris, with dull to no pain on palpation due to neuropathy, 1-5 Left foot, T5, T9.?Neurological: ?SENSORY:? Neurological exam demonstrates, reduced vibration sensation, 5.07 monofilament test performed at plantar aspects of 5 varied sites per foot shows sensation, reduced , B/L, Neurological exam demonstrates pop left first mtpj- dorsum, medial and plantar with less pain on rom same.?Vascular: ?DP PULSES:?0/4. B/L.?PT PULSES:?0/4. B/L.?Dermatologic: ?SKIN FINDINGS:?Skin exam reveals keratotic lesion(s) located at, Medial plantar, IPJ, TA, T5, Dorsal, T7, T8.?General Examination: ?GENERAL APPEARANCE:?pleasant, alert, well nourished, well developed, well hydrated, with good attention to hygene/body habitus, and in no acute distress.?ORIENTED:?person,place, and time.?FOOT EXAM:?Lower Extremity Neurological Exam performed:?Yes ?Visual exam of foot performed:?Yes ?Date?07/30/2023 ?Sensory testing performed:?sensations diminished ?Pedal pulse taking performed:?absent?Ingrown Nail: ?INSPECTION:?Reveals nail incurvation, pain on palpation, groove hypertrophy, Bilateral nail borders, TA, T5, Reveals nail incurvation, pain on palpation, groove hypertrophy, Medial nail border, T1, Reveals nail incurvation, pain on palpation, groove hypertrophy, Lateral nail border, T3.?Orthopedic: ?MUSCLE STRENGTH:?5/5 all groups in a symmetrical fashion , B/L.?GAIT ABNORMALITY:?pronated, abducted, B/L.?FOOT MORPHOLOGY:? Pes Planus structure, B/L--left more severe.?BUNION:? Medially prominent 1st MPJ, Dorsally prominent 1st MPJ , (+) Pain on palpation, LEFT.?Ophthalmology Referral: ?DIABETES EYE EXAM?Diabetic Retinopathy Screening:?Yes 08/2021 ?Findings of Diabetic Eye Exam:?no retinopathy 08/2020??? 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 Primary osteoarthritis, left ankle and foot - M19.072?9.?Primary osteoarthritis, right ankle and foot - M19.071?10.?Idiopathic gout, left ankle and foot - M10.072?11.?Hallux rigidus, left foot - M20.22? Plan: * Treatment: * Procedures:?Debride Nail 6-10:?Nail debridement?Nail debridement performed extensively to reduce/remove overall nail length and girth, subungual debris, and necrotic tissue, by manual and electrical means with use of a nail nipper and/or dremel, to more viable healthy nail plate or bed tissue 6-10. Silver nitrate used for any petechial bleeding as necessary. Patient chooses, no pharmaceutical tx (12992).?Keratoma Treatment:?Parring or Cutting of Benign Hyperkeratotic Lesion(s)?97411 (2-4 Lesions) - The Benign hyperkeratotic lesions, as described above were pared, and/or cut utilizing a sterile #15 blade, tissue nippers, and/or dremel.? * Procedure Codes:?68332 DEBRI DE NAIL, 6 OR MORE, Modifiers: XS 39123 TRIM SKIN LESIONS, 2 TO 4, Modifiers: XS * Preventive Medicine:? ??Counseling:?Discussion:?-14: Office or other outpatient visit for the evaluation and management of an established patient, which required a medically appropriate history and/or examination and MODERATE level of DECISION MAKING for: 1 OR MORE CHRONIC PROBLEM(S) THATS WORSENING, 2 STABLE CHRONIC PROBLEMS, A NEWLY DIAGNOSED PROBLEM WITH UNCERTAIN PROGNOSIS, AN ACUTE COMPLICATED INJURY WITH MULTIPLE TREATMENT OPTIONS, OR AN ACUTE PROBLEM WITH ACCOMPANYING SYSTEMIC SYMPTOMS, THAT POSE(S) A MODERATE RISK OF MORBIDITY. THIS CONDITION MAY ALSO INCLUDE RX DRUG MANAGEMENT, OR A DECISON FOR MINOR SURGERY. The visit on the day of the encounter encompassed interpreting the data and educating the patient as to the nature of their condition, treatment options available according to their individual PMH, meds, allergies, and overall health/living conditions, as well as any potential risks or complications that may occur from a failure to adhere to, and participate in, the recommended course of therapy. The discussion included a complete verbal, and/or written explanation of the examination results, any x-rays taken, the proposed diagnosis, and outline of the treatment plan. A schedule for future care needs was also explained. The patient verbalized an understanding of the instructions at this time and agreed to be an active participant in their treatment. If the patient should think of any questions or concerns after the visit, I have encouraged the patient to call the office.? * Follow Up:?prn * Images: * Sign off status: Completed true * Provider:?Manuel Lira DPM Date:? 024 Generated for Dany wilde/Willem/Andresitting on:?07/29/2024 05:25 PM EDT History and Physical Notes * HPI (History of Present Illness) Category Sub-Category Detail Notes Category Not es Painful Nails Pt States Last PCP Visit: Date:: 05/31/2023 Foot Pain Nature: aching, swelling Location: LEFT, Rearfoot/ankle Duration: 1 year or more Onset: gout Course: intermittent Examination Category Sub-Category Detail Notes Category Not es Ingrown Nail INSPECTION: Reveals nail inc urvation, pain on palpation, groove hypertrophy, Bilateral nail borders, TA, T5, Reveals nail incurvation, pain on palpation, groove hypertrophy, Medial nail border, T1, Reveals nail incurvation, pain on palpation, groove hypertrophy, Lateral nail border, T3 Neurological SENSORY: Neurological exa m demonstrates, reduced vibration sensation, 5.07 monofilament test performed at plantar aspects of 5 varied sites per foot shows sensation, reduced , B/L, Neurological exam demonstrates pop left first mtpj-dorsum, medial and plantar with less pain on rom same Dermatologic SKIN FINDINGS: Skin exam reveal s keratotic lesion(s) located at, Medial plantar, IPJ, TA, T5, Dorsal, T7, T8 Orthopedic GAIT ABNORMALITY: pronated, abducted, B/L FOOT MORPHOLOGY: Pes Planus structure , B/L--left more severe BUNION: Medially prominent 1 st MPJ, Dorsally prominent 1st MPJ , (+) Pain on palpation, LEFT MUSCLE STRENGTH: 5/5 all groups in a symmetrical fashion , B/L General Examination GENERAL APPEARANCE: pleasant , alert, well nourished, well developed, well hydrated, with good attention to hygene/body habitus, and in no acute distress FOOT EXAM: Lower Extremity Neurological Exa m performed:: Yes Visual exam of foot performed:: Yes Date: 07/30/2023 Sensory testing performed:: sensations d iminished Pedal pulse taking performed:: absent ORIENTED: person,place, and ti me Ophthalmology Referral DIABETES EYE EXAM Diabeti c Retinopathy Screening:: Yes 08/2021 Findings of Diabetic Eye Exam:: no retin opathy 08/2020 Vascular DP PULSES (B): 0/4. B/L PT PULSES (B): 0/4. B/L Nails NAILS are: Elongated, overg rown, dystrophic, lytic, greater than 3mm thick, discolored and friable with crumbly malodorous subungual debris, with dull to no pain on palpation due to neuropathy, 1-5 Left foot, T5, T9
--- OUTSIDE RECORDS SUMMARY | 2024-07-29 17:26 | XMS_ITS | Encounter Summary ---
Author Organization [facility] Address [address] [place] [address] Care Team Providers Care Etl Bi Developer Name Role Phone David Elena MD Primary Care Provider [phone] Encounter Details Date Type Department Care Team (Late st Contact Info) Description 02/09/[address] [facility] - Main Lab [address] [facility] [place] [address] Ligia Rodriguez MD [address] [facility] [address] [place], [place] [id number] Hyperlipidemia, unspecified; Type 2 diabetes mellitus without complications (CMS/HCC V24, CMS/HCC V28); Anemia, unspecified; Chronic diastolic (congestive) heart failure (CMS/HCC V24, CMS/HCC V28); Unspecified atrial fibrillation (CMS/HCC V24, CMS/HCC V28) Social History Tobacco Use Types Packs/Day Years Used Date Smoking Tobacco: Never Assessed Sex and Gender Information Value Date Recorded Sex Assigned at Not on file Legal Sex Male 1:58 AM EST Gender Identity Not on file Sexual Orientation Not on file documented as of this encounter Plan of Treatment Not on file documented as of this encounter Procedures Procedure Name Priority Date/Time Associated Diagnosis Comments TRAVEL PHLEBOTOMY FEE Routine 02/12/2024 6:36 AM EST Hyperlipidemia, unspecified Type 2 diabetes mellitus without complications (CMS/HCC) Anemia, unspecified Chronic diastolic (congestive) heart failure (CMS/HCC) Unspecified atrial fibrillation (CMS/HCC) COMPLETE BLOOD COUNT Routine 02/12/2024 6:36 AM EST Hyperlipidemia, unspecified Type 2 diabetes mellitus without complications (CMS/HCC) Anemia, unspecified Chronic diastolic (congestive) heart failure (CMS/HCC) Unspecified atrial fibrillation (CMS/HCC) COMPREHENSIVE METABOLIC PANEL Routine 02/12/2024 6:36 AM EST Hyperlipidemia, unspecified Type 2 diabetes mellitus without complications (CMS/HCC) Anemia, unspecified Chronic diastolic (congestive) heart failure (CMS/HCC) Unspecified atrial fibrillation (CMS/HCC) documented in this encounter Results * Travel phlebotomy fee (02/12/2024 6:36 AM EST) [facility] TRAVEL PHLEBOTOMY FEE Completed 02/13/2024 2:02 PM EST [facility] Blood Venous blood specimen / Unknown 02/12/2024 6:36 AM EST 02/13/2024 1:56 PM EST us Ligia Rodriguez MD LAB BLOOD ORDERABLES Fin al Result [facility] [address] [place] [address], * (ABNORMAL) Comprehensive metabolic panel (02/12/2024 6:36 AM EST) [facility] Sodium 143 133 - 145 mmol/L LAB CHEMISTRY METHOD 02/12/2024 10:18 AM [facility] Potassium 3.8 3.5 - 5.5 mmol/L LAB CHEMISTRY METHOD 02/12/2024 10:18 AM [facility] Chloride 106 96 - 110 mmol/L LAB CHEMISTRY METHOD 02/12/2024 10:18 AM [facility] CO2 32 21 - 32 mmol/L LAB CHEMISTRY METHOD 02/12/2024 10:18 AM [facility] Anion Gap 5 3 - 11 LAB CHEMISTRY METHOD 02/12/2024 10:18 AM [facility] Glucose 96 70 - 100 mg/dL LAB CHEMISTRY METHOD 02/12/2024 10:18 AM [facility] BUN 15 5 - 25 mg/dL LAB CHEMISTRY METHOD 02/12/2024 10:18 AM [facility] Creatinine 0.93 0.70 - 1.30 mg/dL LAB CHEMISTRY METHOD 02/12/2024 10:18 AM [facility] eGFR 83 >=60 mL/min/1. 73m2 LAB CHEMISTRY METHOD 02/12/2024 10:18 AM [facility] Comment:Calculation based on the??Chronic Kidney Disease Epidemiology Collaboration (CKD-EPI) equation refit??without adjustment for race. BUN/Creatinine Ratio 16.1 LAB CHEMISTRY METHOD 02/12/2024 10:18 AM [facility] Calcium 9.3 8.5 - 10.5 mg/dL LAB CHEMISTRY METHOD 02/12/2024 10:18 AM [facility] AST (SGOT) 14 10 - 42 unit/L LAB CHEMISTRY METHOD 02/12/2024 10:18 AM [facility] ALT (SGPT) 20 10 - 60 unit/L LAB CHEMISTRY METHOD 02/12/2024 10:18 AM [facility] Alkaline Phosphatase 121 42 - 121 unit/L LAB CHEMISTRY METHOD 02/12/2024 10:18 AM [facility] Total Protein 6.4 6.0 - 8.0 g/dL LAB CHEMISTRY METHOD 02/12/2024 10:18 AM [facility] Albumin 2.8(L) 3.2 - 5.0 g/dL LAB CHEMISTRY METHOD 02/12/2024 10:18 AM [facility] Total Bilirubin 1.3 0.0 - 1.4 mg/dL LAB CHEMISTRY METHOD 02/12/2024 10:18 AM [facility] Blood Venous blood specimen / Unknown Venipuncture / Unknown 02/12/2024 6:36 AM EST 02/12/2024 9:23 AM EST Ligia Rodriguez MD LAB BLOOD ORDERABLES Fin al Result [facility] [address] [place] [address], * (ABNORMAL) Complete blood count (02/12/2024 6:36 AM EST) [facility] WBC 6.4 4.8 - 10.8 K/mcL LAB HEMETOLOGY METHOD 02/12/2024 9:52 AM EST [facility] RBC 4.50 4.50 - 5.50 M/mcL LAB HEMETOLOGY METHOD 02/12/2024 9:52 AM [facility] Hemoglobin 12.6(L) 13.5 - 17.5 g/dL LAB HEMETOLOGY METHOD 02/12/2024 9:52 AM [facility] Hematocrit 40.6(L) 42.0 - 54.0 % LAB HEMETOLOGY METHOD 02/12/2024 9:52 AM [facility] MCV 90.8 79.0 - 98.0 FL LAB HEMETOLOGY METHOD 02/12/2024 9:52 AM EST [facility] MCH 28.2 27.0 - 32.0 pcg LAB HEMETOLOGY METHOD 02/12/2024 9:52 AM [facility] MCHC 31.0(L) 32.0 - 37.0 g/dL LAB HEMETOLOGY METHOD 02/12/2024 9:52 AM [facility] RDW 15.4(H) 11.0 - 15.0 % LAB HEMETOLOGY METHOD 02/12/2024 9:52 AM [facility] Platelets 231 130 - 400 K/mcL LAB HEMETOLOGY METHOD 02/12/2024 9:52 AM [facility] MPV 9.3 7.0 - 11.0 FL LAB HEMETOLOGY METHOD 02/12/2024 9:52 AM [facility] NRBC 0.0 <1.0 % LAB HEMETOLOGY METHOD 02/12/2024 9:52 AM EST [facility] NRBC Absolute 0.00 <0.10 K/mcL LAB HEMETOLOGY METHOD 02/12/2024 9:52 AM EST [facility] Blood Venous blood specimen / Unknown Venipuncture / Unknown 02/12/2024 6:36 AM EST 02/12/2024 9:23 AM EST us Ligia Rodriguez MD LAB BLOOD ORDERABLES Fin al Result [facility] [address] [place] [address], documented in this encounter Visit Diagnoses Diagnosis Hyperlipidemia, unspecified Type 2 diabetes mellitus without complications (CMS/HCC V24, CMS/HCC V28) Anemia, unspecified Chronic diastolic (congestive) heart failure (CMS/HCC V24, CMS/HCC V28) Unspecified atrial fibrillation (CMS/HCC V24, CMS/HCC V28) documented in this encounter Care Teams Etl Bi Developer Relationship Specialty Start Date End Date David Elena MD [address] [place] [address] [address] [facility] [place] [address] PCP - General Internal Medicine 10/22/17 documented as of this encounter
--- OUTSIDE RECORDS SUMMARY | 2024-07-29 17:26 | XMS_ITS | Patient Health Record ---
[facility] Organization [facility] Address [address] [place] [address] Care Team Providers Care Pediatric Medical Assistant Name Role Phone David Elena Primary Care Provider Manuel Iyer Unavailable [phone] Allergies Allergen (clinical drug ingredient) Drug/Non Drug Allergy documented on EMR Reaction Allergy Type Onset Date Status salt (uncoded) headaches Allergy Activ e lactose Lactose (Intolerance) headaches Drug Allergy Active Reason For Referral No Information Medications Medication SIG (Take, Route, Frequency, Duration) Notes Start Date End Date Status Extra Depth Diabetic Shoes with 3 Pair Custom heat-molded multi-density innersoles for 1 year Dx: 09/29/2020 Active Custom Orthotics as directed A ctive Colcrys 0.6 MG 1 tablet Orally once a day for 10 days 09/13/2021 Active Lisinopril 5 MG 1 tablet Orally Once a day for 30 day(s) Active Vitamin B12 Active Vitamin D3 Active Torsemide 10 MG 1 tablet Orally Once a day for 30 day(s) Active HumaLOG KwikPen Acti ve Lantus Active Bisoprolol Fumarate 5 MG 1 tablet Orally Once a day for 30 day(s) Active Calcium 600 MG 1 tablet with meals Orally Twice a day for 30 day(s) Active Digoxin 125 MCG as directed Orally Active Eplerenone 25 MG 1 tablet Orally Once a day for 30 day(s) Active Allopurinol 300 MG 1 tablet Orally Once a day for 30 day(s) Active hydroCHLOROthiazide 25 MG TAKE 1 TABLET ONCE A DAY ORALLY 90 DAYS Oral for 90 Not-Taking Losartan Potassium 100 MG TAKE 1 TABLET BY MOUTH ONCE A DAY Oral for 90 Not-Taking Amiodarone HCl 200 MG 1 tablet Orally Once a day for 30 day(s) Active Gas Relief Not-Takin g Extra Depth Diabetic Shoes with 3 Pair Custom heat-molded multi-density innersoles for 1 year Dx: Active Atorvastatin Calcium 10 MG 1 tablet Oral ly Once a day Active Keflex 500 MG 1 capsule Orally every 12 hrs for 7 days 07/17/2016 Not-Taking Eliquis 5 MG as directed Orally Active amLODIPine Besylate 10 MG TAKE 1 TABLET BY MOUTH EVERY DAY ONCE A DAY ORALLY 90 DAYS Oral for 90 Not-Taking Vitamin D-[address] 1000 UNIT TAKE 1 TABLET BY MOUTH ONCE A DAY Oral for 30 Not-Taking [facility] Calcium 1500 (600 Ca) MG TAKE 1 TABL ET BY MOUTH EVERY DAY WITH A MEAL Oral for 30 Not-Taking Immunizations Vaccine Route Administration Date Status Comme nts COVID-19 Moderna Vaccine Unknown 03/17/2021 Administered 1st 05/12/2020 2nd 06/08/2020 Influenza Unknown 01/25/2021 Administered Social History Tobacco Use: Social History Observation [...] Are you an other tobacco user? No Problems Problem Type SNOMED Code ICD Code Onset Dates Problem Status W/U Status Risk Notes Problem Bilateral atherosclerosis of arteries of lower limbs (disorder) (71644188997812949 ) Unspecified atherosclerosis of [place] arteries of extremities, bilateral legs (I70.203) Active confirmed Problem Localized, primary osteoarthritis of the ankle and/or foot (692146999) Primary osteoarthritis, right ankle and foot (M19.071) Active confirmed Problem Localized, primary osteoarthritis of the ankle and/or foot (236161582) Primary osteoarthritis, left ankle and foot (M19.072) Active confirmed Problem Acquired hallux rigidus (8930852) Hallux rigidus, left foot (M20.22) Active confirmed Problem Non-pressure chronic ulcer of other part of left foot limited to breakdown of skin (L97.521) Active confirmed Problem Non-pressure chronic ulcer of other part of right foot limited to breakdown of skin (L97.511) Active confirmed Problem Polyneuropathy due to type 2 diabetes mellitus (852317642) Type 2 diabetes mellitus with diabetic polyneuropathy (E11.42) Active confirmed Problem Primary gout (44197833) Idiopathic gout, 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) Active confirmed Problem Polyneuropathy due to diabetes mellitus type I (542025603) Type 1 diabetes mellitus with diabetic polyneuropathy (E10.42) Active confirmed Vital Signs Height 6 ft 3 in in 07/30/2023 Weight 295 lbs 07/30/2023 BMI 36.87 kg/m2 07/30/2023 Encounters Encounter Location Date Provider Diagnosis [facility] [address] [address] 07/30/2023 Manuel Lira Tinea unguium B35.1 ; Pain in right toe(s) M79.674 ; Pain in left toe(s) M79.675 ; Type 2 diabetes mellitus with diabetic polyneuropathy E11.42 ; Unspecified atherosclerosis of [place] arteries of extremities, bilateral legs I70.203 ; [...] (ICD-10 - E11.42) 07/30/2023 Unspecified atherosclerosis of [place] arteries of extremities, bilateral legs (ICD-10 - I70.203) 07/30/2023 Ingrowing nail (ICD-10 - L60.0) 07/30/2023 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) 07/30/2023 Primary osteoarthritis, left ankle and foot (ICD-10 - M19.072) 07/30/2023 Primary osteoarthritis, right ankle and foot (ICD-10 - M19.071) 07/30/2023 Idiopathic gout, left ankle and foot (ICD-10 - M10.072) 07/30/2023 Hallux rigidus, left foot (ICD-10 - M20.22) Plan Of Treatment Pending Test Test Name Order Date *Uric Acid, Serum 09/13/2021 *Sedimentation Rate-Westergren X ray : Foot, left 3V 09/13/2021 X ray : Foot, left 3V 07/17/2016 [id number]-[id number] Plate 07/17/2016 36830- Debride <25 sq cm 2021 73168- Debride <25 sq cm 08/01/2016 58062-ZBMX SKIN LESIONS, 2 TO 4 09/30/19 21 07515-JMET SKIN LESIONS, 2 TO 4 12/21/19 21 31766-CBNX SKIN LESIONS, 2 TO 4 03/14/20 21 67187-TGZW SKIN LESIONS, 2 TO 4 05/26/19 22 Next Appt Details Provider Name:Mercedes mei, 08/05/2024 09:00:00 AM, [address] [place], [address], Insurance Providers Payer Name Payer Address Payer Phone Subscriber Number Group Number Insured Name Patient Relationship to Insured Coverage Start Date Coverage End Date [facility] 65 Medicare Preferred [address] [place] [address] [phone] [id number] Harry Mccullough Self - patient is the insured Medical (General) History Medical History History ICD Code Arthritis Back,Hip,and Knee pain Cancer Chicken pox Diverticulosis High blood pressure Joint implants/screws Cataracts Heart disease type II diabetes Incontinence Surgical History Surgery Date(Month/Year) prostate 2014 Left Knee Replacement 03/01/2016 skin cancer 07/2020 hernia skin cancer removal 12/07/2020 Hospitalization History Reason Date(Month/Year) [facility]- 3 day stay- Sugar was 1000 11/07
--- OUTSIDE RECORDS SUMMARY | 2024-07-29 17:26 | XMS_ITS | Clinical Summary ---
Author Organization [address] Address [address] [place] [address] Phone Care Team Providers Care Insurance Loss Assessor Name Role Phone David Elena MD Primary Care Provider [phone] Social History Tobacco Use Types Packs/Day Years Used Date Smoking Tobacco: Never Assessed Sex and Gender Information Value Date Recorded Sex Assigned at Not on file Legal Sex Male 1:58 AM EST Gender Identity Not on file Sexual Orientation Not on file Plan of Treatment Health Maintenance Due Date Last Done Comments Diabetes: Annual Foot Exam 1955 Diabetes: Annual Retina Eye Exam 1955 DTaP,Tdap,and Td Vaccines (1 - Tdap) 1962 Pneumococcal Vaccine: 50+ Ye ars (1 of 2 - PCV) 1962 Zoster Vaccines (1 of 2) 1993 RSV Immunization Adult Patie nts (1 - 1-dose 75+ series) 2018 Cholesterol Screening (Lipid Panel) 03/12/2022 Depression Screening 03/12/2022 Falls Risk Assessment 03/12/2022 Medicare Annual Wellness Visit 03/12/2022 Social Influencers of Health Screening 03/12/2022 COVID-19 Vaccine (2 - 2023-2 5 season) 2023 03/17/2021 Diabetes: Annual Urine Albumin-Creatinine Ratio (uACR) 02/09/2024 Diabetes: Blood Sugar Contro l Test (HGBA1C) 02/09/2024 Influenza Vaccine (Season Ended) 2024 01/26/20 21 Diabetes: Annual GFR (Glomer ular Filtration Rate) 02/11/2025 02/12/2024 Hypertension/CHF/CAD Annual BMP Blood Test 02/11/2025 02/12/2024 HIB Vaccines Aged Out No longer eligi ble based on patient's age to complete this topic HPV Vaccines Aged Out No longer eligi ble based on patient's age to complete this topic Hepatitis A Vaccines Aged Out No long er eligible based on patient's age to complete this topic Hepatitis B Vaccines Aged Out No long er eligible based on patient's age to complete this topic IPV Vaccines Aged Out No longer eligi ble based on patient's age to complete this topic MMR Vaccines Aged Out No longer eligi ble based on patient's age to complete this topic Meningococcal ACWY Vaccine Aged Out N o longer eligible based on patient's age to complete this topic Meningococcal B Vaccine Aged Out No l onger eligible based on patient's age to complete this topic RSV Immunization Patients Un claus 20 months Aged Out No longer eligible b ased on patient's age to complete this topic Varicella Vaccines Aged Out No longer eligible based on patient's age to complete this topic Procedures Procedure Name Priority Date/Time Associated Diagnosis Comments COMPREHENSIVE METABOLIC PANEL Routine 02/12/2024 6:36 AM EST Hyperlipidemia, unspecified Type 2 diabetes mellitus without complications (CMS/HCC) Anemia, unspecified Chronic diastolic (congestive) heart failure (CMS/HCC) Unspecified atrial fibrillation (CMS/HCC) from Last 3 Months or Most Recently Relevant to Health Maintenance Results * (ABNORMAL) Comprehensive metabolic panel (02/12/2024 6:36 AM EST) Sodium 143 133 - 145 mmol/L LAB CHEMISTRY METHOD 02/12/2024 10:18 AM [facility] Potassium 3.8 3.5 - 5.5 mmol/L LAB CHEMISTRY METHOD 02/12/2024 10:18 AM [facility] Chloride 106 96 - 110 mmol/L LAB CHEMISTRY METHOD 02/12/2024 10:18 AM [facility] CO2 32 21 - 32 mmol/L LAB CHEMISTRY METHOD 02/12/2024 10:18 AM [facility] Anion Gap 5 3 - 11 LAB CHEMISTRY METHOD 02/12/2024 10:18 AM [facility] Glucose 96 70 - 100 mg/dL LAB CHEMISTRY METHOD 02/12/2024 10:18 AM [facility] BUN 15 5 - 25 mg/dL LAB CHEMISTRY METHOD 02/12/2024 10:18 AM [facility] Creatinine 0.93 0.70 - 1.30 mg/dL LAB CHEMISTRY METHOD 02/12/2024 10:18 AM [facility] eGFR 83 >=60 mL/min/1. 73m2 LAB CHEMISTRY METHOD 02/12/2024 10:18 AM [facility] Comment:Calculation based on the??Chronic Kidney Disease Epidemiology Collaboration (CKD-EPI) equation refit??without adjustment for race. BUN/Creatinine Ratio 16.1 LAB CHEMISTRY METHOD 02/12/2024 10:18 AM [facility] Calcium 9.3 8.5 - 10.5 mg/dL LAB CHEMISTRY METHOD 02/12/2024 10:18 AM [facility] AST (SGOT) 14 10 - 42 unit/L LAB CHEMISTRY METHOD 02/12/2024 10:18 AM [facility] ALT (SGPT) 20 10 - 60 unit/L LAB CHEMISTRY METHOD 02/12/2024 10:18 AM [facility] Alkaline Phosphatase 121 42 - 121 unit/L LAB CHEMISTRY METHOD 02/12/2024 10:18 AM [facility] Total Protein 6.4 6.0 - 8.0 g/dL LAB CHEMISTRY METHOD 02/12/2024 10:18 AM [facility] Albumin 2.8(L) 3.2 - 5.0 g/dL LAB CHEMISTRY METHOD 02/12/2024 10:18 AM [facility] Total Bilirubin 1.3 0.0 - 1.4 mg/dL LAB CHEMISTRY METHOD 02/12/2024 10:18 AM [facility] Blood Venous blood specimen / Unknown Venipuncture / Unknown 02/12/2024 6:36 AM EST 02/12/2024 9:23 AM EST us Ligia Rodriguez MD LAB BLOOD ORDERABLES Fin al Result [facility] [address] [place] [address], from Last 3 Months or Most Recently Relevant to Health Maintenance Insurance [employer] - [place] MEDICARE ADVANTAGE Advance Directives Documents on File Type Date Recorded 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 Health Care Decision (hx) 05/14/2012 [place] DIRECT[place] Health Care Decision (hx) 05/14/2012 [place] DIRECT[place] Health Care Decision (hx) 05/14/2012 [place] DIRECT[place] Health Care Decision (hx) 04/24/2012 [place] DIRECTIVE Health Care Decision (hx) 04/24/2012 [place] DIRECTIVE Health Care Decision (hx) 04/24/2012 [place] DIRECTIVE Health Care Decision (hx) 04/24/2012 [place] DIRECTIVE Health Care Decision (hx) 04/24/2012 [place] DIRECTIVE Health Care Decision (hx) 04/24/2012 [place] DIRECTIVE Health Care Decision (hx) 04/24/2012 [place] DIRECTIVE Health Care Decision (hx) 04/24/2012 [place] DIRECTIVE Health Care Decision (hx) 04/24/2012 [place] DIRECTIVE Health Care Decision (hx) 04/24/2012 [place] DIRECTIVE Health Care Decision (hx) 04/24/2012 [place] DIRECTIVE Health Care Decision (hx) 04/24/2012 [place] DIRECTIVE Health Care Decision (hx) 04/24/2012 [place] DIRECTIVE Health Care Decision (hx) 04/24/2012 [place] DIRECTIVE Health Care Decision (hx) 04/24/2012 [place] DIRECTIVE Care Teams Insurance Loss Assessor Relationship Specialty Start Date End Date David Elena MD [address] [place] [address] [address] [facility] [place] [address] PCP - General Internal Medicine 10/22/17
== END 2024-07-29 15:33 | disposition home or self-care (01) ==
LOC: HO.HMCH 14:34
PROVIDERS: PCP Internal Medicine; Visit Provider Internal Medicine
DX: I48.0 Paroxysmal atrial fibrillation (principal); E11.65 Type 2 diabetes mellitus with hyperglycemia; N18.31 Chronic kidney disease, stage 3a; I50.9 Heart failure, unspecified; G47.33 Obstructive sleep apnea (adult) (pediatric); E66.9 Obesity, unspecified; I25.5 Ischemic cardiomyopathy; F41.1 Generalized anxiety disorder; E78.00 Pure hypercholesterolemia, unspecified

== ENCOUNTER → 2024-07-29 14:34 | Outpatient (BNVA) | payer MEDICARE, SELFPAY | PROVIDERS: PCP Internal Medicine; Visit Provider Internal Medicine | DX: I48.0 Paroxysmal atrial fibrillation (principal); G47.33 Obstructive sleep apnea (adult) (pediatric); E66.9 Obesity, unspecified; I25.5 Ischemic cardiomyopathy; F41.1 Generalized anxiety disorder; E78.00 Pure hypercholesterolemia, unspecified; E11.65 Type 2 diabetes mellitus with hyperglycemia; E11.22 Type 2 diabetes mellitus with diabetic chronic kidney disease; I50.9 Heart failure, unspecified; N18.31 Chronic kidney disease, stage 3a; Z68.34 Body mass index [BMI] 34.0-34.9, adult; Z71.89 Other specified counseling | CPT/HCPCS: 83036; 99212; G0108 ==

== ENCOUNTER 2024-10-14 11:04 | Outpatient (REF) | payer MEDICARE, SELFPAY ==
--- OUTSIDE RECORDS SUMMARY | 2024-08-05 05:00 | XMS_ITS ---
Author Organization [facility] Address [address] [place] [address] Care Team Providers Care Area Plant Manager Name Role Phone David Elena Primary Care Provider Manuel Iyer Unavailable [phone] Mercedes Hoover [phone] Encounters Encounter Location Date Provider Diagnosis [address] [address] 08/05/2024 Mercedes Hoover Plan Of Treatment No Information Progress Notes * STEPHANIERyley SOUSArey LDOB: (79 yo M)Acc No.[id number]:08/05/2024 Progress Note Patient: Harry MCINTYRE Provider: Brooke Hoover DPM :1945 A ge:79 Y S ex:Male Date:08/05/2024 Address:[address] [place], [place] [id number] Pcp:David Elena Subjective: * Chief Complaints: * * Medical History: Objective: * Vitals: Assessment: Plan: * Treatment: * Images: * The named appointment provid er may or may not be the originator of this progress note, and it is not deemed complete until electronically signed by the appointment provider. Sign off status: Pending * Provider: Brooke Hoover DPM Date: 0 08/05/2024 Generated for Printi ng/Faxing/eTransmitting on: 0 10/14/2024 12:11 PM EDT
--- OUTSIDE RECORDS SUMMARY | 2024-10-14 12:11 | XMS_ITS | Clinical Summary ---
Author Organization [facility] Address [address] [place] [address] Phone Care Team Providers Care Shale Planer Operator Name Role Phone David Elena MD Primary Care Provider [phone] Allergies Active Allergy Reactions Criticality Noted Date [...] rigidus 12/28/2021 Primary gout 12/28/2021 Atherosclerosis of [place] arteries of the extrem ities 05/18/2021 Diabetes [...] Diabetes: Visual Foot Exam 05/18/2021 Influenza Vaccine (#1) 2024 01/25/2021 Hepatitis B Vaccine Aged Out No longe r eligible based on patient's age to complete this topic Insurance [place] [address] Care Teams Shale Planer Operator Relationship Specialty Start Date End Date David Elena MD [facility] [address] [place] PCP - General 04/19/20
--- OUTSIDE RECORDS SUMMARY | 2024-10-14 12:11 | XMS_ITS | Encounter Summary ---
Author Organization [facility] Address [address] [place] [address] Care Team Providers Care Auditor Medical Claims Name Role Phone David Elena MD Primary Care Provider [phone] Encounter Details Date Type Department Care Team (Late st Contact Info) Description 02/09/2024 Lab Requisition [facility] - Main Lab [address] [facility] [place] [address] Ligia Rodriguez MD [address] [facility] 1 [place], [place] [id number] Hyperlipidemia, unspecified; Type 2 diabetes mellitus without [...] Travel phlebotomy fee (02/12/2024 6:36 AM EST) [facility] TRAVEL PHLEBOTOMY FEE Completed 02/13/2024 2:02 PM EST [facility] Blood Venous blood specimen / Unknown 02/12/2024 6:36 AM EST 02/13/2024 1:56 PM EST us Ligia Rodriguez MD LAB BLOOD ORDERABLES Fin al Result [facility] [address] [place] [address], * (ABNORMAL) Comprehensive metabolic panel (02/12/2024 6:36 AM EST) [facility] Sodium 143 133 - 145 mmol/L LAB CHEMISTRY METHOD 02/12/2024 10:18 AM [facility] Potassium 3.8 3.5 - 5.5 mmol/L LAB CHEMISTRY METHOD 02/12/2024 10:18 AM [facility] Chloride 106 96 - 110 mmol/L LAB CHEMISTRY METHOD 02/12/2024 10:18 AM [facility] CO2 32 21 - 32 mmol/L LAB CHEMISTRY METHOD 02/12/2024 10:18 AM [facility] Anion Gap 5 3 - 11 LAB CHEMISTRY METHOD 02/12/2024 10:18 AM [facility] Glucose 96 70 - 100 mg/dL LAB CHEMISTRY METHOD 02/12/2024 10:18 AM [facility] BUN 15 5 - 25 mg/dL LAB CHEMISTRY METHOD 02/12/2024 10:18 AM [facility] Creatinine 0.93 0.70 - 1.30 mg/dL LAB CHEMISTRY METHOD 02/12/2024 10:18 AM [facility] eGFR 83 >=60 mL/min/1. 73m2 LAB CHEMISTRY METHOD 02/12/2024 10:18 AM [facility] Comment:Calculation based on the Chronic Kidney Disease Epidemiology Collaboration (CKD-EPI) equation refit without adjustment for race. BUN/Creatinine Ratio 16.1 LAB CHEMISTRY METHOD 02/12/2024 10:18 AM [facility] Calcium 9.3 8.5 - 10.5 mg/dL LAB CHEMISTRY METHOD 02/12/2024 10:18 AM [facility] AST (SGOT) 14 10 - 42 unit/L LAB CHEMISTRY METHOD 02/12/2024 10:18 AM [facility] ALT (SGPT) 20 10 - 60 unit/L LAB CHEMISTRY METHOD 02/12/2024 10:18 AM [facility] Alkaline Phosphatase 121 42 - 121 unit/L LAB CHEMISTRY METHOD 02/12/2024 10:18 AM [facility] Total Protein 6.4 6.0 - 8.0 g/dL LAB CHEMISTRY METHOD 02/12/2024 10:18 AM [facility] Albumin 2.8(L) 3.2 - 5.0 g/dL LAB CHEMISTRY METHOD 02/12/2024 10:18 AM [facility] Total Bilirubin 1.3 0.0 - 1.4 mg/dL LAB CHEMISTRY METHOD 02/12/2024 10:18 AM [facility] Blood Venous blood specimen / Unknown Venipuncture / Unknown 02/12/2024 6:36 AM EST 02/12/2024 9:23 AM EST us Ligia Rodriguez MD LAB BLOOD ORDERABLES Fin al Result [facility] [address] [place] [address], * (ABNORMAL) Complete blood count (02/12/2024 6:36 AM EST) [facility] Signature WBC 6.4 4.8 - 10.8 K/mcL LAB HEMETOLOGY METHOD 02/12/2024 9:52 AM EST [facility] RBC 4.50 4.50 - 5.50 M/mcL LAB HEMETOLOGY METHOD 02/12/2024 9:52 AM [facility] Hemoglobin 12.6(L) 13.5 - 17.5 g/dL LAB HEMETOLOGY METHOD 02/12/2024 9:52 AM [facility] Hematocrit 40.6(L) 42.0 - 54.0 % LAB HEMETOLOGY METHOD 02/12/2024 9:52 AM [facility] MCV 90.8 79.0 - 98.0 FL LAB HEMETOLOGY METHOD 02/12/2024 9:52 AM [facility] MCH 28.2 27.0 - 32.0 pcg LAB HEMETOLOGY METHOD 02/12/2024 9:52 AM [facility] MCHC 31.0(L) 32.0 - 37.0 g/dL LAB HEMETOLOGY METHOD 02/12/2024 9:52 AM [facility] RDW 15.4(H) 11.0 - 15.0 % LAB HEMETOLOGY METHOD 02/12/2024 9:52 AM [facility] Platelets 231 130 - 400 K/mcL LAB HEMETOLOGY METHOD 02/12/2024 9:52 AM [facility] MPV 9.3 7.0 - 11.0 FL LAB HEMETOLOGY METHOD 02/12/2024 9:52 AM [facility] NRBC 0.0 <1.0 % LAB HEMETOLOGY METHOD 02/12/2024 9:52 AM EST [facility] NRBC Absolute 0.00 <0.10 K/mcL LAB HEMETOLOGY METHOD 02/12/2024 9:52 AM EST [facility] Blood Venous blood specimen / Unknown Venipuncture / Unknown 02/12/2024 6:36 AM EST 02/12/2024 9:23 AM EST us Ligia Rodriguez MD LAB BLOOD ORDERABLES Fin al Result [facility]) [facility] [address] [place] [address], documented in this encounter Visit Diagnoses Diagnosis Hyperlipidemia, unspecified Type 2 diabetes mellitus without complications (CMS/HCC V24, CMS/HCC V28) Anemia, unspecified Chronic diastolic (congestive) heart failure (CMS/HCC V24, CMS/HCC V28) Unspecified atrial fibrillation ([facility] V24, CMS/HCC V28) documented in this encounter Care Teams Auditor Medical Claims Relationship Specialty Start Date End Date David Elena MD [address] [place] [address] Dr [address] [facility] [place] [address] PCP - General Internal Medicine 10/22/17 documented as of this encounter
[2024-10-14 12:14] LABS: Anion Gap 14 (12-20); Blood Urea Nitrogen 21 mg/dL (9-16); Carbon Dioxide 26 mmol/L (22-29); Chloride 105 mmol/L (96-108); Estimated Glomerular Filt Rate 52; Potassium 4.0 mmol/L (3.3-5.1); Sodium 141 mmol/L (135-145); Uric Acid 4.9 mg/dL (3.4-7.0)
== END 2024-10-14 11:05 | disposition home or self-care (01) ==
LOC: HO.LAB 11:04
PROVIDERS: PCP Internal Medicine; Visit Provider Internal Medicine Nephrology
DX: N18.31 Chronic kidney disease, stage 3a (principal)
CPT/HCPCS: 36415; 80051; 82565; 84520; 84550

== ENCOUNTER 2024-10-22 10:05 | Outpatient (AMB) | payer MEDICARE, SELFPAY ==
--- OUTSIDE RECORDS SUMMARY | 2024-08-05 05:00 | XMS_ITS ---
Author Organization [facility] Address [address] [place] [address] Care Team Providers Care Pastrycook Name Role Phone David Elena Primary Care Provider Manuel Iyer Unavailable [phone] Mercedes Hoover [phone] Encounters Encounter Location Date Provider Diagnosis [address] [address] 08/05/2024 Mercedes Hoover Plan Of Treatment No Information Progress Notes * STEPHANIERyley SOUSArey LDOB: (79 yo M)Acc No.[id number]:08/05/2024 Progress Note Patient: Harry MCINTYRE Provider: Brooke Hoover DPM :1945 A ge:79 Y S ex:Male Date:08/05/2024 Address:[address] [place], [place] [id number] Pcp:David Elena Subjective: * Chief Complaints: * [...] 08/05/2024 Generated for Printi ng/Faxing/eTransmitting on: 0 10/22/2024 10:38 AM EDT
--- NOTE | 2024-10-22 10:17 | HO.NEPHOV_ITS ---
Vital Signs 10/22/24 10:18 Height 6 ft 4 in Weight 282 lb 6 oz BMI 34.4 BP 110/70 Blood Pressure Location Rt brachial Position Sitting Pulse 60 Pulse Source Pulse Oximeter Pulse Oximetry (%) 94 Oxygen Delivery Method Room Air Intake Visit Reasons: CKD Housing Management Officer Required: No Accompanied by: Spouse Allergies milk Allergy (Unknown, Verified 10/22/24 10:18) Unknown tramadol Adverse Reaction (Intermediate, Verified 10/22/24 10:18) tremors salt Allergy (Unknown, Uncoded 07/29/24 14:59) unknown HPI Comments Details: Ryley was seen in follow up for his CKD. His gout attacks are better on current dose of Allopurinol. He has been regularly followed up by his digital printer operator( Dr Banegas). He has no SOB, PND or orthopnea. He denies chest pain, nausea, vomiting, diarrhea, dizziness. He is not taking any NSAID's. He has no hematuria or dysuria. His last serum creatinine is stable [facility] Medical History (Updated 04/29/24 @ 15:21 by David Elena MD) Impacted cerumen of left ear Phlebitis Chronic kidney disease Gout Tubular adenoma of colon DKA (diabetic ketoacidosis) Cardiomyopathy Congestive heart failure Asthma Obesity (BMI 30-39.9) Pulmonary nodule Skin cancer Renal mass Obstructive sleep apnea Atrial fibrillation Tubular adenoma of colon Prostate cancer Osteoarthritis of knee GERD (gastroesophageal reflux disease) Prostatism Cholelithiasis Diabetes mellitus type II, uncontrolled Surgical History History of left hip replacement History of left knee replacement History of prostatectomy H/O left inguinal hernia repair S/P laparoscopic surgery Hx of tonsillectomy H/O arthroscopic knee surgery Family History Father CAD (coronary artery disease) Hypertension CVD (cardiovascular disease) Mother Breast cancer Spleen cancer Brother Diabetes Social History Housing: House Alcohol intake: current Alcohol intake frequency: holidays/special occasions only Patient Tobacco Use Status: Never used Tobacco e-Cigarette/Vaping Use: Never Used Second Hand Smoke Exposure: No service: No Current occupational status: retired Cognitive needs: Yes (walker) Hearing needs: No Vision needs: Yes Review of Systems Const All systems reviewed & are unremarkable except as noted in HPI and below Physical Exam Vital Signs: Last Vital Signs Pulse 60 10/22/24 10:18 BP 110/70 10/22/24 10:18 Pulse Ox 94 10/22/24 10:18 Oxygen Delivery Method Room Air 10/22/24 10:18 BMI result Body Mass Index 34.4 Const General: comfortable and no acute distress Orientation/consciousness: patient oriented x3 HEENT Head: Yes normocephalic Mouth: Normal oral and palatal mucosa present Eyes EOM: EOMs intact bilaterally Neck Neck: Yes supple Resp Auscultation: clear to auscultation bilaterally Cardio Jugular venous distension: no JVD Rate: regular rate GI Palpation (GI): Soft to palpation Auscultation: normal bowel sounds General: Yes no CVA tenderness Back/Spine/Pelvis Back: no CVA tenderness Skin General skin exam: no rashes or lesions noted Neuro General: patient oriented x3 and moves all extremities Extrem General: Yes no pedal edema Results Reviewed Nephrology Results: Sodium, (135-145) 141 mmol/L 10/14/24 Potassium, (3.3-5.1) 4.0 mmol/L 10/14/24 Chloride, (96-108) 105 mmol/L 10/14/24 Carbon Dioxide, (22-29) 26 mmol/L 10/14/24 BUN, (9-16) 21 mg/dL H 10/14/24 Creatinine, (0.5-1.4) 1.33 mg/dL 10/14/24 Assessment & Plan Assessment & Plan (1) CKD (chronic kidney disease) stage 3, GFR 30-59 ml/min: Code(s): N18.30 - Chronic kidney disease, stage 3 unspecified Category: Medical Qualifiers: Chronic kidney disease stage 3 subtype: stage 3a (GFR 45-59) Qualified Code(s): N18.31 - Chronic kidney disease, stage 3a Plan Renal function had been stable Urine output good; Volume status optimal; On Farxiga No NSAID's. Has H/O Gout; Dayron follows renal mass Hemodynamics stable; No medication changes done today Blood work ordered for F/U renal function Answered all his and his 's questions Follow up appointment given Orders: Orders Calcium 8 Months N18.31 - Chronic kidney disease, stage 3a Uric Acid 8 Months N18.31 - Chronic kidney disease, stage 3a Electrolytes 8 Months N18.31 - Chronic kidney disease, stage 3a Blood Urea Nitrogen 8 Months N18.31 - Chronic kidney disease, stage 3a Creatinine 8 Months N18.31 - Chronic kidney disease, stage 3a Coding Level of Care Code Est Pt Level 4 (04740) Diagnoses Stage 3a chronic kidney disease N18.31 Chronic kidney disease stage 3 subtype: stage 3a (GFR 45-59)
[2024-10-22 10:18] VITALS: BP 110/70; PULSE 60; O2SAT 94; BMI 34.4
--- OUTSIDE RECORDS SUMMARY | 2024-10-22 10:39 | XMS_ITS | Clinical Summary ---
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
--- OUTSIDE RECORDS SUMMARY | 2024-10-22 10:39 | XMS_ITS | Encounter Summary ---
Author Organization [facility] Address [address] [place] [address] Care Team Providers Care Retort Furnace Helper Name Role Phone David Elena MD Primary Care Provider [phone] Encounter Details Date Type Department Care Team (Late st Contact Info) Description 02/09/2024 Lab Requisition [facility] - Main Lab [address] [facility] [place] [address] Ligia Rodriguez MD [address] [facility] 1 [place], [place] [id number] Hyperlipidemia, unspecified; Type 2 diabetes mellitus without [...] Travel phlebotomy fee (02/12/2024 6:36 AM EST) [facility] TRAVEL PHLEBOTOMY FEE Completed 02/13/2024 2:02 PM EST [facility] Blood Venous blood specimen / Unknown 02/12/2024 6:36 AM EST 02/13/2024 1:56 PM EST us Ligia Rodriguez MD LAB BLOOD ORDERABLES Fin al Result [facility] [address] [place] [address], * (ABNORMAL) Comprehensive metabolic panel (02/12/2024 6:36 AM EST) [facility] Sodium 143 133 - 145 mmol/L [...] [facility] Comment:Calculation based on the Chronic [...] MD LAB BLOOD ORDERABLES Fin al Result [facility] [address] [place] [address], * (ABNORMAL) Complete blood count (02/12/2024 6:36 AM EST) [facility] Signature WBC 6.4 4.8 - 10.8 K/mcL LAB HEMETOLOGY METHOD 02/12/2024 9:52 AM EST [facility] RBC 4.50 4.50 - 5.50 M/mcL LAB HEMETOLOGY METHOD 02/12/2024 9:52 AM [facility] Hemoglobin 12.6(L) 13.5 - 17.5 g/dL LAB HEMETOLOGY METHOD 02/12/2024 9:52 AM [facility] Hematocrit 40.6(L) 42.0 - 54.0 % LAB HEMETOLOGY METHOD 02/12/2024 9:52 AM [facility] MCV 90.8 79.0 - 98.0 FL LAB HEMETOLOGY METHOD 02/12/2024 9:52 AM [facility] MCH 28.2 27.0 - 32.0 pcg LAB HEMETOLOGY METHOD 02/12/2024 9:52 AM [facility] MCHC 31.0(L) 32.0 - 37.0 g/dL LAB HEMETOLOGY METHOD 02/12/2024 9:52 AM [facility] RDW 15.4(H) 11.0 - 15.0 % LAB HEMETOLOGY METHOD 02/12/2024 9:52 AM [facility] Platelets 231 130 - 400 K/mcL LAB HEMETOLOGY METHOD 02/12/2024 9:52 AM [facility] MPV 9.3 7.0 - 11.0 FL LAB HEMETOLOGY METHOD 02/12/2024 9:52 AM [facility] NRBC 0.0 <1.0 % LAB HEMETOLOGY METHOD 02/12/2024 9:52 AM EST [facility] NRBC Absolute 0.00 <0.10 K/mcL LAB HEMETOLOGY METHOD 02/12/2024 9:52 AM EST [facility] Blood Venous blood specimen / Unknown Venipuncture / Unknown 02/12/2024 6:36 AM EST 02/12/2024 9:23 AM EST us Ligia Rodriguez MD LAB BLOOD ORDERABLES Fin al Result [facility] ([facility]) [facility] [address] [place] [address], documented in this encounter Visit Diagnoses Diagnosis Hyperlipidemia, unspecified Type 2 diabetes mellitus without complications (CMS/HCC V24, CMS/HCC V28) Anemia, unspecified Chronic diastolic (congestive) heart failure (CMS/HCC V24, CMS/HCC V28) Unspecified atrial fibrillation ([facility] V24, CMS/HCC V28) documented in this encounter Care Teams Retort Furnace Helper Relationship Specialty Start Date End Date David Elena MD [address] [place] [address] Dr [address] [facility] [place] [address] PCP - General Internal Medicine 10/22/17 documented as of this encounter
== END 2024-10-22 10:49 | disposition home or self-care (01) ==
LOC: HO.HKA 10:06
PROVIDERS: PCP Internal Medicine; Visit Provider Internal Medicine Nephrology
DX: N18.31 Chronic kidney disease, stage 3a (principal)
CPT/HCPCS: 99214

== ENCOUNTER → 2024-10-22 10:05 | Outpatient (BNVA) | payer MEDICARE, SELFPAY | PROVIDERS: PCP Internal Medicine; Visit Provider Internal Medicine Nephrology | DX: E11.22 Type 2 diabetes mellitus with diabetic chronic kidney disease (principal); N18.31 Chronic kidney disease, stage 3a | CPT/HCPCS: 99212 ==

== ENCOUNTER 2024-11-24 08:26 | Outpatient (REF) | payer MEDICARE, SELFPAY ==
--- OUTSIDE RECORDS SUMMARY | 2024-08-05 05:00 | XMS_ITS ---
Author Organization [facility] Address [address] [place] [address] Care Team Providers Care Human Resource Advisor Name Role Phone David Elena Primary Care Provider Manuel Iyer Unavailable [phone] Mercedes Hoover [phone] Encounters Encounter Location Date Provider Diagnosis [address] [address] 08/05/2024 Mercedes Hoover Plan Of Treatment No Information Progress Notes * STEPHANIERyley SOUSArey LDOB: (79 yo M)Acc No.[id number]:08/05/2024 Progress Note Patient: Harry MCINTYRE Provider: Brooke Hoover DPM :1945 A ge:79 Y S ex:Male Date:08/05/2024 Address:[address] [place], [place] [id number] Pcp:David Elena Subjective: * Chief Complaints: * [...] 08/05/2024 Generated for Printi ng/Faxing/eTransmitting on: 0 11/24/2024 08:50 AM EDT
--- OUTSIDE RECORDS SUMMARY | 2024-11-24 08:50 | XMS_ITS | Clinical Summary ---
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 Primary gout 12/28/2021 Atherosclerosis of [place] arteries of the extrem ities 05/18/2021 Diabetes [...] 11/17/2020 Congestive heart failure 11/17/2020 Oliguria 11/17/2020 Encounters Date Type Department Care Team Description 11/19/2024 Refill [facility] [address] [place] [address] Michael Benton MD from Last 3 Months Immunizations Immunization Administration Dates Next Due Influenza [...] Date Last Done Comments Pneumococcal Vaccine: 50+ Years (2 of 2 - PCV) 03/04/2020 03/04/2019 Diabetes: Hemoglobin A1C 05/18/2021 Diabetes: Ophthalmology Exam 05/18/2021 Diabetes: Pedal Pulse Checked 05/18/2021 Diabetes: Sensory Foot Exam 05/18/2021 Diabetes: Visual Foot Exam 05/18/2021 Influenza Vaccine (#1) 2024 3, 01/25/2021 Pneumococcal Vaccine: Peds ( 0 to 5 Years) and At-Risk Patients (6 to 49 Years) Discontinued 03/04/2019 Hepatitis B Vaccine Aged Out No longe r eligible based on patient's age to complete this topic [place] [address] [address] [facility] Care Teams Goodwill Representative Relationship Specialty Start Date End Date David Elena MD [address] [place], [place] PCP - General 04/19/20
--- OUTSIDE RECORDS SUMMARY | 2024-11-24 08:50 | XMS_ITS | Encounter Summary ---
Author Organization [facility] Address [address] [place] [address] Care Team Providers Care Editor City Name Role Phone David Elena MD Primary Care Provider [phone] Encounter Details Date Type Department Care Team (Late st Contact Info) Description 02/09/2024 Lab Requisition [facility] - Main Lab [address] [facility] [place] [address] Ligia Rodriguez MD [address] [facility] 1 [place], [place] [phone] Hyperlipidemia, unspecified; Type 2 diabetes mellitus without [...] Travel phlebotomy fee (02/12/2024 6:36 AM EST) [facility] TRAVEL PHLEBOTOMY FEE Completed 02/13/2024 2:02 PM EST [facility] Blood Venous blood specimen / Unknown 02/12/2024 6:36 AM EST 02/13/2024 1:56 PM EST us Ligai Rodriguez MD LAB BLOOD ORDERABLES Fin al Result [facility] [address] [place] [address], * (ABNORMAL) Comprehensive metabolic panel (02/12/2024 6:36 AM EST) [facility] Sodium 143 133 - 145 mmol/L LAB CHEMISTRY METHOD 02/12/2024 10:18 AM [facility] Potassium 3.8 3.5 - 5.5 mmol/L LAB CHEMISTRY METHOD 02/12/2024 10:18 AM [facility] Chloride 106 96 - 110 mmol/L LAB CHEMISTRY METHOD 02/12/2024 10:18 AM [facility] CO2 32 21 - 32 mmol/L LAB CHEMISTRY METHOD 02/12/2024 10:18 AM [facility] Anion Gap 5 3 - 11 LAB CHEMISTRY METHOD 02/12/2024 10:18 AM [facility] Glucose 96 70 - 100 mg/dL LAB CHEMISTRY METHOD 02/12/2024 10:18 AM [facility] BUN 15 5 - 25 mg/dL LAB CHEMISTRY METHOD 02/12/2024 10:18 AM [facility] Creatinine 0.93 0.70 - 1.30 mg/dL LAB CHEMISTRY METHOD 02/12/2024 10:18 AM [facility] eGFR 83 >=60 mL/min/1. 73m2 LAB CHEMISTRY METHOD 02/12/2024 10:18 AM [facility] Comment:Calculation based on the Chronic Kidney Disease Epidemiology Collaboration (CKD-EPI) equation refit without adjustment for race. BUN/Creatinine Ratio 16.1 LAB CHEMISTRY METHOD 02/12/2024 10:18 AM [facility] Calcium 9.3 8.5 - 10.5 mg/dL LAB CHEMISTRY METHOD 02/12/2024 10:18 AM [facility] AST (SGOT) 14 10 - 42 unit/L LAB CHEMISTRY METHOD 02/12/2024 10:18 AM [facility] ALT (SGPT) 20 10 - 60 unit/L LAB CHEMISTRY METHOD 02/12/2024 10:18 AM [facility] Alkaline Phosphatase 121 42 - 121 unit/L LAB CHEMISTRY METHOD 02/12/2024 10:18 AM [facility] Total Protein 6.4 6.0 - 8.0 g/dL LAB CHEMISTRY METHOD 02/12/2024 10:18 AM [facility] Albumin 2.8(L) 3.2 - 5.0 g/dL LAB CHEMISTRY METHOD 02/12/2024 10:18 AM [facility] Total Bilirubin 1.3 0.0 - 1.4 mg/dL LAB CHEMISTRY METHOD 02/12/2024 10:18 AM [facility] Blood Venous blood specimen / Unknown Venipuncture / Unknown 02/12/2024 6:36 AM EST 02/12/2024 9:23 AM EST us Ligia Rodriguez MD LAB BLOOD ORDERABLES Fin al Result [facility] [address] [place] [address], * (ABNORMAL) Complete blood count (02/12/2024 6:36 AM EST) [facility] Signature WBC 6.4 4.8 - 10.8 K/mcL LAB HEMETOLOGY METHOD 02/12/2024 9:52 AM EST [facility] RBC 4.50 4.50 - 5.50 M/mcL LAB HEMETOLOGY METHOD 02/12/2024 9:52 AM [facility] Hemoglobin 12.6(L) 13.5 - 17.5 g/dL LAB HEMETOLOGY METHOD 02/12/2024 9:52 AM [facility] Hematocrit 40.6(L) 42.0 - 54.0 % LAB HEMETOLOGY METHOD 02/12/2024 9:52 AM [facility] MCV 90.8 79.0 - 98.0 FL LAB HEMETOLOGY METHOD 02/12/2024 9:52 AM [facility] MCH 28.2 27.0 - 32.0 pcg LAB HEMETOLOGY METHOD 02/12/2024 9:52 AM [facility] MCHC 31.0(L) 32.0 - 37.0 g/dL LAB HEMETOLOGY METHOD 02/12/2024 9:52 AM [facility] RDW 15.4(H) 11.0 - 15.0 % LAB HEMETOLOGY METHOD 02/12/2024 9:52 AM [facility] Platelets 231 130 - 400 K/mcL LAB HEMETOLOGY METHOD 02/12/2024 9:52 AM [facility] MPV 9.3 7.0 - 11.0 FL LAB HEMETOLOGY METHOD 02/12/2024 9:52 AM [facility] NRBC 0.0 <1.0 % LAB HEMETOLOGY METHOD 02/12/2024 9:52 AM EST [facility] NRBC Absolute 0.00 <0.10 K/mcL LAB HEMETOLOGY METHOD 02/12/2024 9:52 AM EST [facility] Blood Venous blood specimen / Unknown Venipuncture / Unknown 02/12/2024 6:36 AM EST 02/12/2024 9:23 AM EST us Ligia Rodriguez MD LAB BLOOD ORDERABLES Fin al Result [facility] ([facility]) [facility] [address] [place] [address], documented in this encounter Visit Diagnoses Diagnosis Hyperlipidemia, unspecified Type 2 diabetes mellitus without complications (CMS/HCC V24, CMS/HCC V28) Anemia, unspecified Chronic diastolic (congestive) heart failure (CMS/HCC V24, CMS/HCC V28) Unspecified atrial fibrillation ([facility] V24, CMS/HCC V28) documented in this encounter Care Teams Editor City Relationship Specialty Start Date End Date David Elena MD [address] [place] [address] Dr [address] [facility] [place] [address] PCP - General Internal Medicine 10/22/17 documented as of this encounter
[2024-11-24 10:39] LABS: Alanine Aminotransferase 25 U/L (0-40); Albumin Level 4.4 g/dL (3.5-5.0); Alkaline Phosphatase 108 U/L (39-117); Anion Gap 15 (12-20); Aspartate Amino Transferase 32 U/L (5-37); Blood Urea Nitrogen 29 mg/dL (9-16); Calcium 9.3 mg/dL (8.4-10.2); Carbon Dioxide 26 mmol/L (22-29); Chloride 103 mmol/L (96-108); Cholesterol 122 mg/dL (<200); Estimated Glomerular Filt Rate 48; HDL Cholesterol 32 mg/dL (>40); Iron 84 mcg/dL (45-160); Percent Iron Saturation 27 % (15-50); Potassium 4.1 mmol/L (3.3-5.1); Sodium 140 mmol/L (135-145); Total Iron Binding Capacity 307 mcg/dL (228-428); Total Protein 7.9 g/dL (6.5-8.0); Triglycerides 172 mg/dL (<150); Unsaturated Iron Binding 223 ug/dL
[2024-11-24 11:01] LABS: Ferritin 66 ng/mL (20-250); Free T4 (Free Thyroxine) 0.86 ng/dL (0.71-1.85); Thyroid Stimulating Hormone 7.90 uIU/mL (0.32-4.0)
[2024-11-24 11:03] LABS: Appearance Urine Cloudy; Glucose Urine UA >=1000 mg/dL (Negative); PH 5.5 (5.0-9.0); Specific Gravity - Urine 1.020 (1.005-1.025); UMIC TRIGGER UACC YES
[2024-11-24 11:19] LABS: Folate 7.1 ng/mL (> or = 4.0); Vitamin B12 720 pg/mL (200-900)
[2024-11-25 12:35] LABS: B Type Natriuretic Peptide 40 pg/mL (<100)
== END 2024-11-24 08:27 | disposition home or self-care (01) ==
LOC: HO.LAB 08:26
PROVIDERS: PCP Internal Medicine; Visit Provider Internal Medicine
DX: E11.65 Type 2 diabetes mellitus with hyperglycemia (principal); E78.00 Pure hypercholesterolemia, unspecified; E11.22 Type 2 diabetes mellitus with diabetic chronic kidney disease; N18.31 Chronic kidney disease, stage 3a; I50.9 Heart failure, unspecified
CPT/HCPCS: 36415; 80053; 80061; 81001; 81003; 82607; 82728; 82746; 83540; 83880; 84439; 84443; 85652

== ENCOUNTER 2024-11-25 10:02 | Outpatient (AMB) | payer MEDICARE, SELFPAY ==
[2024-11-25 10:05] VITALS: BP 130/62; PULSE 64; O2SAT 93; BMI 34.3
--- NOTE | 2024-11-25 10:05 | MHC.PC.OV ---
Vital Signs 11/25/24 10:05 Height 6 ft 4 in Weight 282 lb BMI 34.3 BP 130/62 Blood Pressure Location Lt brachial Position Sitting Pulse 64 Pulse Source Pulse Oximeter Pulse Oximetry (%) 93 Oxygen Delivery Method Room Air Intake Visit Reasons: DM Allergies milk Allergy (Unknown, Verified 11/25/24 10:06) Unknown tramadol Adverse Reaction (Intermediate, Verified 11/25/24 10:06) tremors salt Allergy (Unknown, Uncoded 11/25/24 10:06) unknown Medication List - Last Reconciled 11/25/24 by David Elena MD acetaminophen ER (Tylenol 8 Hour) 650 mg PO Q8H albuterol sulfate 90 mcg/actuation (Ventolin HFA) 2 puffs inhalation Q6H PRN allopurinol 300 mg PO DAILY amiodarone 200 mg PO DAILY apixaban (Eliquis) 5 mg PO BID atorvastatin 10 mg PO BEDTIME 30 days bisoprolol fumarate 5 mg PO DAILY 90 days blood-glucose sensor ([employer] G7 Sensor device) As directed calcium carbonate 600 mg PO DAILY cholecalciferol (vitamin D3) (Vitamin D3) 25 mcg PO DAILY cyanocobalamin (vitamin B-12) (Vitamin B-12) 500 mcg PO DAILY dapagliflozin propanediol (Farxiga) 5 mg PO DAILY eplerenone 25 mg PO DAILY 90 days flash glucose scanning reader (SkatazStyle Henry 14 Day [place]) As directed flash glucose sensor (FreeStyle Henry 14 Day Sensor kit) As directed insulin glargine (Lantus Solostar U-100 Insulin) 16 units subcut QPM lidocaine 5% 1 appl topical BID PRN lisinopril 5 mg PO DAILY Novolog FlexPen U-100 Insulin (insulin aspart U-100) 5 units (0.05 mL) subcut TID NS pen needle, diabetic USE DIRECTED TO INJECT INSULIN FOUR TIMES PER DAY [rollator As directed] [BETHANY LIFT As directed] sertraline 25 mg PO DAILY torsemide 20 mg (2 x 10 mg) PO DAILY Tobacco use date assessed: 07/29/24 Fall risk assessment: No Falls in past year Last assessed Fall Risk: 11/25/24 Dental Screening Dental Screen Date: 07/29/24 [facility] Medical History (Updated 11/25/24 @ 10:33 by David Elena MD) Impacted cerumen of left ear Phlebitis Chronic kidney disease Gout Tubular adenoma of colon DKA (diabetic ketoacidosis) Cardiomyopathy Congestive heart failure Asthma Obesity (BMI 30-39.9) Pulmonary nodule Skin cancer Renal mass Obstructive sleep apnea Atrial fibrillation Tubular adenoma of colon Prostate cancer Osteoarthritis of knee GERD (gastroesophageal reflux disease) Prostatism Cholelithiasis Diabetes mellitus type II, uncontrolled Surgical History History of left hip replacement History of left knee replacement History of prostatectomy H/O left inguinal hernia repair S/P laparoscopic surgery Hx of tonsillectomy H/O arthroscopic knee surgery Family History Father CAD (coronary artery disease) Hypertension CVD (cardiovascular disease) Mother Breast cancer Spleen cancer Brother Diabetes Social History Housing: House Alcohol intake: current Alcohol intake frequency: holidays/special occasions only Patient Tobacco Use Status: Never used Tobacco Tobacco use type: Cigarette e-Cigarette/Vaping Use: Never Used Second Hand Smoke Exposure: No service: No Current occupational status: retired Cognitive needs: Yes (walker) Hearing needs: No Vision needs: Yes Questionnaire PHQ-9 Over the last 2 weeks, how often have you been bothered by any of the following problems? 1. Little interest or pleasure in doing things: not at all 2. Feeling down, depressed, or hopeless: not at all 3. Trouble falling or staying asleep, or sleeping too much: not at all 4. Feeling tired or having little energy: several days 5. Poor appetite or overeating: not at all 6. Feeling bad about yourself - or that you are a failure or have let yourself or your family down: not at all 7. Trouble concentrating on things, such as reading the newspaper or watching television: not at all 8. Moving or speaking so slowly that other people could have noticed. Or the opposite - being so fidgety or restless that you have been moving around a lot more than usual: not at all 9. Thoughts that you would be better off or of hurting yourself in some way: not at all Total score: 1 Depression Screening Interpretation: Positive Depression Screening Done: Yes Source: Developed by Drs. Nicholas Dennis, Anuj Ervin and colleagues, with an educational qing from [employer]. Thrive Questionnaire Date Thrive assessed: 07/29/24 I am a: Patient What is your living situation today?: I have a steady place to live Within the past 12 months, did the food you bought not last and you didn't have the money to get more?: Never true Within the past 12 months, did you worry whether your food would run out before you got money to buy more?: Never true Do you have trouble paying for medicines?: No Do you have trouble getting transportation to medical appointments?: No Do you have trouble paying your heating and electricity bill?: No Do you have trouble taking care of your child, family member or friend?: No Do you have trouble with day-to-day activities such as bathing, preparing meals, shopping, managing finances, etc.?: No Are you currently unemployed and looking for a job?: No Are you interested in more education?: No Please select the resources that you would like help with: None Currently or been in a relationship where the following occur: I choose not to answer THRIVE Score: 0 AUDIT C Alcohol Use Questionnaire (AUDIT-C) 1. How often do you have a drink containing alcohol?: Never 3. How often do you have six or more drinks on one occasion?: Never Total Score: 0 DELROY-7 AMB Questionnaire DELROY-7 Date DELROY - 7 assessed: 04/29/24 Feeling nervous, anxious, or on edge: 0 = Not at all Not being able to stop or control worryin = Not at all Worrying too much about different things: 0 = Not at all Trouble relaxin = Not at all Being so restless that it is hard to sit still: 0 = Not at all Becoming easily annoyed or irritable: 0 = Not at all Feeling afraid as if something awful might happen: 0 = Not at all Total DELROY-7 score (0-4 normal; 5-9 mild; 10-14 moderate; 15-21 severe): 0 Source: Developed by Drs. Nicholas Dennis, Anuj Ervin and colleagues, with an educational qing from [employer]. Physical exam (Primary Care) Vital Signs: Last Vital Signs Pulse 64 11/25/24 10:05 BP 130/62 11/25/24 10:05 Pulse Ox 93 11/25/24 10:05 Oxygen Delivery Method Room Air 11/25/24 10:05 BMI result Body Mass Index 34.3 Tobacco/Smoking Status: Tobacco use Status Tobacco use date assessed 07/29/24 11/25/24 10:06 Patient Tobacco Use Status Never used Tobacco 11/25/24 10:06 Tobacco use type Cigarette 11/25/24 10:06 e-Cigarette/Vaping Use Never Used 11/25/24 10:06 PHQ-9: PHQ-9 Score PHQ-9: Total score 1 11/25/24 10:26 Depression Screening Interpretation: Positive Thrive Assessment: Date of Thrive Assessment Date Thrive assessed 07/29/24 11/25/24 10:06 Currently or been in a relationship where the following occur: I choose not to answer Const Other: impacted cerumen bilatera General: alert; No acute distress Eyes Conjunctivae: conjunctivae normal Resp Auscultation: clear to auscultation bilaterally Cardio Rate: regular rate Rhythm: regular rhythm GI Inspection: Yes normal to inspection Extrem General: Yes normal to inspection and No edema Office Procedures Cerumen Removal From which ear canal was the cerumen removed: bilateral Removal: irrigation, otoscope w/curette, cerumen loop/spoon and other Notes: patient tolerated procedure well, no complications and ear canal clear 40414-Oty Irrigation/Lavage Results AMB Hemoglobin A1c AMB Hemoglobin A1c 6.4 % Last Edit by Trinidad Beth CMA on 11/25/24 10:23 Results Reviewed Results Reviewed: Laboratory Last Values Hgb A1c (Clinic) 6.4 % (4.0-6.0) H 11/25/24 10:07 Coding Level of Care Code Est Pt Level 4 (71590) Complex EM visit Add On G2211 Diagnoses Type 2 diabetes mellitus with hyperglycemia, without long-term current use of insulin E11.65 Diabetes mellitus halfway insulin use: without tank terminal gauger use Ascending aorta dilatation I77.810 Hypercholesterolemia E78.00 Peripheral vascular disease I73.9 Paroxysmal atrial fibrillation I48.0 Atrial fibrillation type: paroxysmal Ischemic cardiomyopathy I25.5 Cardiomyopathy type: ischemic Gastroesophageal reflux disease without esophagitis K21.9 Esophagitis presence: without esophagitis Stage 3a chronic kidney disease N18.31 Chronic kidney disease stage 3 subtype: stage 3a (GFR 45-59) Generalized anxiety disorder F41.1 TSH elevation R79.89 Impacted cerumen of both ears H61.23 CPT Codes Office Procedure - CPT: 16084-Mtu Irrigation/Lavage ([id number]) Assessment & Plan Assessment & Plan (1) Type 2 diabetes mellitus with hyperglycemia: Comment: [facility] [place] Code(s): E11.65 - Type 2 diabetes mellitus with hyperglycemia Category: Medical Qualifiers: Diabetes mellitus halfway insulin use: without tank terminal gauger use Qualified Code(s): E11.65 - Type 2 diabetes mellitus with hyperglycemia Plan: Decrease the amount of carbohydrate intake, pasta, bread, rice and potatoes are all sugar and that is aside from all the sweet stuff, remember that fruits are good but they are Sweet also. Hemoglobin A1c goal of less than 7.0. Patient is on Farxiga 5 mg once a day insulin Lantus NovoLog (2) Ascending aorta dilatation: Comment: 09/2023 4.2 cm Code(s): I77.810 - Thoracic aortic ectasia Category: Medical Plan: Continue to monitor September 2023 last echocardiogram. (3) Hypercholesterolemia: Code(s): E78.00 - Pure hypercholesterolemia, unspecified Category: Medical Plan: Avoid fried foods, chicken skin, eggs, butter margarine, pastries and meat. Be it pork or beef they have a lot of cholesterol LDL goal of less than 70 and triglyceride of less than 150 patient on atorvastatin 10 mg once a day (4) Peripheral vascular disease: Code(s): I73.9 - Peripheral vascular disease, unspecified Category: Medical Plan: When sitting down elevate the legs, exercise, and support stockings patient follows up with vascular continuing with Eliquis (5) Atrial fibrillation: Comment: December 2017, ejection fraction 20-25% doctor JOSS, yang EF 25% dilated aorta [address] Riccardo Banegas congestive heart failure program cardioverted February 2018 Code(s): I48.91 - Unspecified atrial fibrillation Category: Medical Qualifiers: Atrial fibrillation type: paroxysmal Qualified Code(s): I48.0 - Paroxysmal atrial fibrillation Plan: Continue with anticoagulation (6) Cardiomyopathy: Code(s): I42.9 - Cardiomyopathy, unspecified Category: Medical Qualifiers: Cardiomyopathy type: ischemic Qualified Code(s): I25.5 - Ischemic cardiomyopathy Plan: Continue with diuretics as well as Farxiga and bisoprolol (7) GERD (gastroesophageal reflux disease): Code(s): K21.9 - Gastro-esophageal reflux disease without esophagitis Category: Medical Qualifiers: Esophagitis presence: without esophagitis Qualified Code(s): K21.9 - Gastro-esophageal reflux disease without esophagitis Plan: Avoid the foods that causes that usually spicy foods, tomato products, juices, coffee, soda and foods that your sensitive to. After eating do not lie down, allow 3-4 hours before in lie down. And keep the head of bed above 30 degrees to avoid the acid from going up. (8) CKD (chronic kidney disease) stage 3, GFR 30-59 ml/min: Code(s): N18.30 - Chronic kidney disease, stage 3 unspecified Category: Medical Qualifiers: Chronic kidney disease stage 3 subtype: stage 3a (GFR 45-59) Qualified Code(s): N18.31 - Chronic kidney disease, stage 3a Plan: Continue to follow-up with Nephrology. Avoid NSAIDs (9) Generalized anxiety disorder: Code(s): F41.1 - Generalized anxiety disorder Category: Medical Plan: Continue with present medication (10) TSH elevation: Code(s): R79.89 - Other specified abnormal findings of blood chemistry Category: Medical (11) Impacted cerumen of both ears: Code(s): H61.23 - Impacted cerumen, bilateral Category: Medical Plan: irrigation and scoop used TM intact Plan History of Present Illness The patient is an 79-year-old male presenting for a follow-up visit. The patient has a history of obesity and atrial fibrillation, which are managed with statins and anticoagulation therapy. He also suffers from gastroesophageal reflux disease and obstructive sleep apnea, the latter of which he cannot tolerate CPAP therapy for. Asthma and cardiomyopathy are part of his medical history, along with a renal mass that has been noted. He experiences generalized anxiety disorder and diabetes mellitus, which are part of his chronic conditions. The patient has hypercholesterolemia and renal insufficiency, with a diagnosis of chronic kidney disease stage 3, which is stable. His blood work in August 2022 showed normal blood count and electrolytes, with a creatinine level of 1.41 and blood sugar of 144. He has a history of aortic dilatation, with the last measurement in September 2023 being 4.2 cm. The patient follows up with cardiology for peripheral arterial disease and was last seen in November 2024. [employer] [facility] Social History Review of Systems Physical Exam Results - Labs: Normal blood count and electrolytes, creatinine 1.41, blood sugar 144, triglyceride 172, LDL 56, TSH slightly elevated, normal iron, negative urine test. - Imaging: Thoracic ultrasound in October 2019 was normal. Plan The patient will continue with current management for atrial fibrillation, including statins and anticoagulation therapy. Due to intolerance of CPAP, alternative management strategies for obstructive sleep apnea should be considered. Regular follow-up with cardiology is advised for monitoring aortic dilatation and peripheral arterial disease. The patient should maintain regular nephrology consultations to monitor chronic kidney disease and renal function. Blood work is recommended in six weeks to monitor thyroid function due to potential effects of amiodarone. Patient was informed and verbally consented to the use of an ambient scribe for clinic note documentation during this visit. Discussion Notes Patient Instructions Orders: Orders Free T4 (Free Thyroxine) 6 Months R79.89 - Other specified abnormal findings of blood chemistry CA echo transthoracic complete Today I77.810 - Thoracic aortic ectasia AMB Hemoglobin A1c Today Z13.9 - Encounter for screening, unspecified Thyroid Stimulating Hormone 6 Months R79.89 - Other specified abnormal findings of blood chemistry
== END 2024-11-25 10:55 | disposition home or self-care (01) ==
LOC: HO.HMCH 10:03
PROVIDERS: PCP Internal Medicine; Visit Provider Internal Medicine
DX: E11.65 Type 2 diabetes mellitus with hyperglycemia (principal); I48.0 Paroxysmal atrial fibrillation; N18.31 Chronic kidney disease, stage 3a; I77.810 Thoracic aortic ectasia; E78.00 Pure hypercholesterolemia, unspecified; I73.9 Peripheral vascular disease, unspecified; I25.5 Ischemic cardiomyopathy; K21.9 Gastro-esophageal reflux disease without esophagitis; F41.1 Generalized anxiety disorder; R79.89 Other specified abnormal findings of blood chemistry; H61.23 Impacted cerumen, bilateral

== ENCOUNTER → 2024-11-25 10:02 | Outpatient (BNVA) | payer MEDICARE, SELFPAY | PROVIDERS: PCP Internal Medicine; Visit Provider Internal Medicine | DX: E11.65 Type 2 diabetes mellitus with hyperglycemia (principal); E11.51 Type 2 diabetes mellitus with diabetic peripheral angiopathy without gangrene; E11.22 Type 2 diabetes mellitus with diabetic chronic kidney disease; I77.810 Thoracic aortic ectasia; E78.00 Pure hypercholesterolemia, unspecified; I48.0 Paroxysmal atrial fibrillation; I25.5 Ischemic cardiomyopathy; K21.9 Gastro-esophageal reflux disease without esophagitis; N18.31 Chronic kidney disease, stage 3a; F41.1 Generalized anxiety disorder; R79.89 Other specified abnormal findings of blood chemistry; H61.23 Impacted cerumen, bilateral | CPT/HCPCS: 69209; 83036; 96127; 99212 ==

== ENCOUNTER → 2025-01-06 13:58 | Outpatient (REF) | payer MEDICARE, SELFPAY ==
--- OUTSIDE RECORDS SUMMARY | 2024-08-05 05:00 | XMS_ITS ---
Author Organization [facility] Address [address] [place] [address] Care Team Providers Care University Librarian Name Role Phone David Elena Primary Care Provider Manuel Iyer Unavailable [phone] Mercedes Hoover [phone] Encounters Encounter Location Date Provider Diagnosis [address] [address] 08/05/2024 Mercedes Hoover Plan Of Treatment No Information Progress Notes * KEEGANRyley BAIrey LDOB: (79 yo M)Acc No.[id number]:08/05/2024 Progress Note Patient: Harry MCINTYRE Provider: Brooke Hoover DPM :1945 A ge:79 Y S ex:Male Date:08/05/2024 Address:[address] [place], [place] [id number] Pcp:David Elena Subjective: * Chief Complaints: * [...] 08/05/2024 Generated for Printi ng/Faxing/eTransmitting on: 0 01/06/2025 03:19 PM EDT
--- NOTE | 2025-01-06 14:02 | CA_ITS ---
Transthoracic Echocardiogram Patient (Last, First, Middle): Harry Coats L Gender: M Date of : 1945 Age: 79 Procedure Date: 01/06/2025 Procedure Type: Transthoracic Echocardiogram Location: OP Height: 193.04 cm Weight: 127.01 kg BSA: 2.56 m2 Heart Rate: bpm BP: 130 / 62 mmHg Strategy Lead: CP/CRISTOBAL Referring MD: David Elena MD Symptoms: I77.810 - Thoracic aortic ectasia Study Quality: Fair, contrast ECG Rhythm: Sinus Conclusions: - The left ventricular systolic function is normal. The visually estimated ejection fraction is between 55-60%. - Moderately increased right ventricular cavity size. - There is mild calcification of the aortic valve. - There is mild mitral annular calcification. - There is mild dilatation of the sinuses of Valsalva measuring 4.32 cm and mild dilatation of the ascending aorta measuring 4.20 cm. Findings Procedure Information Contrast agent, definity, is being given per protocol without apparent complications. Left Ventricle Normal left ventricular cavity size. There is mildly increased left ventricular wall thickness. The left ventricular systolic function is normal. The visually estimated ejection fraction is between 55-60%. There is no evidence of regional wall motion abnormalities. Diastolic function is normal for age. Right Ventricle Moderately increased right ventricular cavity size. There is normal right ventricular systolic function. Atria Both atria are normal in size. Aortic Valve There is a normal trileaflet aortic valve. There is mild calcification of the aortic valve. There is no aortic valve stenosis. There is no aortic valve regurgitation. Mitral Valve There is mild mitral annular calcification. There is no mitral valve regurgitation. There is no mitral valve stenosis. Pulmonic Valve There is trace to mild pulmonic valve regurgitation. Tricuspid Valve There is mild tricuspid valve regurgitation. There is no evidence of pulmonary hypertension. Great Vessels There is mild dilatation of the sinuses of Valsalva measuring 4.32 cm and mild dilatation of the ascending aorta measuring 4.20 cm. Venous The inferior vena cava is normal in size and collapses greater than 50% with inspiration. Pericardium/Pleural There is no evidence of pericardial effusion. Prior Study Comparison No significant change compared to prior study dated: 09/26/2023. Right ventricular size similar to prior study. Measurements 2D Linear Measurements IVSd: 1.17 0.6-0.9/0.6-1.0 cm LVIDd: 4.36 3.9-5.3/4.2-5.9 cm LVIDd Index: 1.70 2.4-3.2/2.2-3.1 cm/m2 LVIDs: 2.95 2.0-3.6 cm LVPWd: 1.12 0.7-1.1 cm LA Diam: 3.70 2.7-3.8/3.0-4.0 cm LAIDs Index: 1.45 1.5-2.3 cm/m2 LV Mass: 219.65 67-162/88-224 g LV Mass Index: 85.80 43-95/49-115 g/m2 LVOT Diam: 2.50 3.0+(-)1.3 cm 2D Systolic Function EF 4C: 60.90 >55% EF 2C: 64.60 >55% EF BiP: 61.20 >55% Mitral Valve MV Pk E: 0.38 MV PK A: 0.72 MV Decel Time: 403.00 E/A: 0.50 E'Lateral: 10.00 E'Medial: 6.31 E/E' Med: 6.00 E/E' Lat: 3.80 PHT: 118.00 MVA PHT: 1.86 Decel [place]: 0.95 Aortic Valve AoV Pk Azar: 1.72 AoV Mn Azar: 1.22 AoV VTI: 0.39 AoV Pk Grad: 12.00 Aov Mn Grad: 7.00 [place] Cont.VTI: 2.33 LVOT LVOT Pk Azar: 0.76 LVOT Mn Azar: 0.55 LVOT VTI: 0.19 LVOT Pk Grad: 2.00 LVOT Mn Grad: 1.00 LVOT Diam: 2.50 LVOT Area: 4.91 Diastolic Function MV Pk E: 0.38 MV Pk A: 0.72 E/A: 0.50 E'Medial: 6.31 E/E' Med: 6.00 E' Laterial: 10.00 E/E' Lat: 3.80 Right Ventricle TAPSE (mm): 18.80 TVS' Azar: 10.10 Tricuspid Valve TR Pk Azar: 2.38 TR Pk Grad: 23.00 RA Press: 3.00 RVSP: 26.00 Great Vessels Aorta Sinus of Valsalva: 4.32 2.0-3.[address] [place]: 3.44 1.7-3.4 cm Ao Asc: 4.20 2.1-3.4 cm Updated in Other Vendor System with Status of Final Mukesh Lovelace MD electronically signed on 01/08/2025 9:03:48 AM with status of Final
--- OUTSIDE RECORDS SUMMARY | 2025-01-06 15:20 | XMS_ITS ---
Author Organization [facility] on Care Team Providers Care Guide Name Role Phone Tricia Unavailable Unavailable Charity Pierre Unavailable Unavailable Cyndi Morton Unavailable Unavailable Leah Flower Unavailable Unavailable Gustavo Holloway Unavailable Unavailable Norma Clemons Unavailable Unavailable Allergies and adverse reactions Code CodeSystem Substance Reaction Severity StartDate Concern Status Milk Products Unknown 11/03/[address] Lactose Unknown 11/03/2023 active aldactone Unknown 11/03/2023 active Care Team Name Role Address Phone Organization Dates Charity Pierre PCP [address] [place] [address], [address], [place] (Office): : [facility] 11/03/2023 - 12/22/2023 Tricia Esquivel [address] [facility], [place], [address], [place] (Office): [facility] 11/03/2023 - 12/22/2023 Cyndi Magdalenobowski [address] [place], [address], [place] (Office): [facility] 11/03/2023 - 12/22/2023 Leah Flower [address] [place], [address], [place] (Office): [facility] [place] 11/03/2023 - 12/22/2023 Gustavo Holloway [facility] [place], [address], [place] (Office): [facility] 11/03/2023 - 12/22/2023 Norma Clemons [address] [place], [address], [place] (Office): : [facility] 11/03/2023 - 12/22/2023 Immunizations Immunization Status Vaccine Details Vaccine Code CodeSystem Date Notes TB 1 Step Mantoux (PPD) completed tuberculin skin test; unspecified formulation lotNumber: [id number] expiry: 05/10/2025 Mfg: Aplisol Given 0.1 ml Right Forearm intradermally 98 CVX created date: 11/11/2023 consent date: 11/11/2023 administer ed date: 11/11/2023 Pneumococcal Polysaccharide Vaccine (PPSV23) completed pneumococcal polysaccharide vaccine, 23 valent 33 CVX created date: 11/05/2023 administer ed date: 03/04/2019 Verified in [facility]. SARS-COV-2 (COVID-19) completed SARS-COV-2 (COVID-19) vaccine, mRNA, spike protein, LNP, preservative free, 100 mcg/0.5mL dose or 50 mcg/0.25mL dose Mfg: Moderna Step 2 of Multi-step with next step required 207 CVX created date: 11/05/2023 administer ed date: 06/08/2020 Verified in [facility]. SARS-COV-2 (COVID-19) completed SARS-COV-2 (COVID-19) vaccine, mRNA, spike protein, LNP, preservative free, 100 mcg/0.5mL dose or 50 mcg/0.25mL dose Mfg: Moderna Step 1 of Multi-step with next step required 207 CVX created date: 11/05/2023 administer ed date: 05/11/2020 Verified in [facility]. SARS-COV-2 (COVID-19 BOOSTER) completed SARS-COV-2 (COVID-19) vaccine, mRNA, spike protein, LNP, preservative free, 100 mcg/0.5mL dose or 50 mcg/0.25mL dose Mfg: Moderna Booster # 1 207 CVX created date: 11/05/2023 administer ed date: 03/17/2021 Verified in [facility]. influenza, unspecified formulation completed influenza virus vaccine, unspecified formulation 88 CVX created date: 11/05/2023 administer ed date: 02/26/2023 Verified in [facility]. Td(adult) unspecified formulation completed Td(adult) unspecified formulation 139 CVX created date: 11/05/2023 administer ed date: 05/20/2021 Verified in [facility]. Mental Status Section Date Assessment Total Score Description 12/22/2023 BIMS 07 severe cognitiv e impairment CAM 0 No delirium ind icated PHQ-9 09 mild depression 11/09/2023 BIMS 14 cognitively int act CAM 0 No delirium ind icated PHQ-9 04 minimal depress ion Problems Problem # Description Date of onset Resolved Date Code CodeSystem Concern Status 1 AGE-RELATED OSTEOPOROSIS WITHOUT CURRENT PATHOLOGICAL FRACTURE [address] active 2 ANEMIA, UNSPECIFIED [address] active 3 CARDIOMYOPATHY, UNSPECIFIED [address] active 4 DELIRIUM DUE TO KNOW N PHYSIOLOGICAL CONDITION [address] active 5 DISPLACED INTERTROCHANTERIC FRACTURE OF LEFT FEMUR, SUBSEQUENT ENCOUNTER FOR CLOSED FRACTURE WITH ROUTINE HEALING [address] active 6 ESSENTIAL (PRIMARY) HYPERTENSION [address] active 7 HYPERLIPIDEMIA, UNSPECIFIED [address] active 8 IDIOPATHIC GOUT, LEF T ANKLE AND FOOT [address] active 9 MAJOR DEPRESSIVE DISORDER, RECURRENT, UNSPECIFIED [address] active 10 OBSTRUCTIVE SLEEP APNEA (ADULT) (PEDIATRIC) [address] active 11 OTHER PERIPHERAL VERTIGO, UNSPECIFIED EAR [address] active 12 PERSONAL HISTORY OF MALIGNANT NEOPLASM OF PROSTATE [address] active 13 TRANSIENT CEREBRAL ISCHEMIC ATTACK, UNSPECIFIED [address] active 14 TYPE 2 DIABETES MELLITUS WITHOUT COMPLICATIONS [address] active 15 UNSPECIFIED ATRIAL FIBRILLATION [address] active 16 UNSPECIFIED COMBINED SYSTOLIC (CONGESTIVE) AND DIASTOLIC (CONGESTIVE) HEART FAILURE [address] active Reason for Referral No Reasons for Referral Entered Social History Social History Observation Description Start Date End Date Code Code System Current Smoking Status Tobacco smoking consumption unknown 818736498 SNOMED CT Sex Assigned At Male 1945 [address]8966-4 [facility] Gender Identity Sexual Orientation Vital Signs Code Code System Vitals Name Values and Units Timing Information 9279-1 [facility] Respiratory Rate Value=18.0 Units=/m in 12/22/2023 8462-4 [facility] Blood Pressure-Diastolic Value=60 Un its=mmHg 12/22/2023 8480-6 [facility] Blood Pressure-Systolic Dfldx=214 Un its=mmHg 12/22/2023 8310-5 [facility] Body Temperature Value=97.6 Units= F 12/22/2023 8867-4 [facility] Heart rate Value=70.0 Units=/min 2339-0 [facility] Blood Sugar Tkyms=908.0 Units=mg/dL 12/22/2023 99316-7 [facility] Pain Level Value=0.0 12/22/2023 90516-8 [facility] O2 % BldC Oximetry Value=97.0 Units= % 12/21/2023 39917-1 [facility] Weight Nuyex=181.2 Units=Lbs 8302-2 [facility] Height Value=75.0 Units=Inches 11/03/2023
--- OUTSIDE RECORDS SUMMARY | 2025-01-06 15:20 | XMS_ITS | Patient Health Record ---
Author Organization [facility] Address [address] [place] [address] Care Team Providers Care Insole Toe Snipping Machine Operator Name Role Phone David Elena Primary Care Provider Manuel Iyer Unavailable [phone] Mercedes Hoover Unavailable [phone] Allergies Allergen (clinical drug ingredient) Drug/Non Drug [...] 0.6 MG 1 tablet Orally once a day; Duration: 10 days 09/13/2021 Active Lisinopril 5 MG 1 tablet Orally Once a day; Duration: 30 day(s) Active Vitamin B12 Active Vitamin D3 Active Torsemide 10 MG 1 tablet Orally Once a day; Duration: 30 day(s) Active HumaLOG KwikPen Acti ve Lantus Active Bisoprolol Fumarate 5 MG 1 tablet Orally Once a day; Duration: 30 day(s) Active Calcium 600 MG 1 tablet with meals Orally Twice a day; Duration: 30 day(s) Active Digoxin 125 MCG as directed Orally Active Eplerenone 25 MG 1 tablet Orally Once a day; Duration: 30 day(s) Active Allopurinol 300 MG 1 tablet Orally Once a day; Duration: 30 day(s) Active hydroCHLOROthiazide 25 MG TAKE 1 TABLET ONCE A DAY ORALLY 90 DAYS Oral; Duration: 90 Not-Taking Losartan Potassium 100 MG TAKE 1 TABLET BY MOUTH ONCE A DAY Oral; Duration: 90 Not-Taking Amiodarone HCl 200 MG 1 tablet Orally Once a day; Duration: 30 day(s) Active Gas Relief Not-Takin g Extra Depth Diabetic Shoes with 3 Pair Custom heat-molded multi-density innersoles for 1 year Dx: Active Atorvastatin Calcium 10 MG 1 tablet Oral ly Once a day Active Keflex 500 MG 1 capsule Orally every 12 hrs; Duration: 7 days 07/17/2016 Not-Taking Eliquis 5 MG as directed Orally Active amLODIPine Besylate 10 MG TAKE 1 TABLET BY MOUTH EVERY DAY ONCE A DAY ORALLY 90 DAYS Oral; Duration: 90 Not-Taking Vitamin D-[address] 1000 UNIT TAKE 1 TABLET BY MOUTH ONCE A DAY Oral; Duration: 30 Not-Taking [facility] Calcium 1500 (600 Ca) MG TAKE 1 TABL ET BY MOUTH EVERY DAY WITH A MEAL Oral; Duration: 30 Not-Taking Immunizations Vaccine Route Administration Date Status Comme nts Influenza Unknown 01/25/2021 Administered COVID-19 Moderna Vaccine Unknown 03/17/2021 Administered 1st 05/12/2020 2nd 06/08/2020 Social History Tobacco Use: Social History Observation [...] atherosclerosis of arteries of lower limbs (disorder) (70210608277884291 ) 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, bilateral legs (I70.203) Active confirmed Problem Localized, primary osteoarthritis of the ankle and/or foot (275527582) Primary osteoarthritis, right ankle and foot (M19.071) Active confirmed Problem Localized, primary osteoarthritis of the ankle and/or foot (368459466) Primary osteoarthritis, left ankle and foot (M19.072) Active confirmed Problem Acquired hallux rigidus (2462782) Hallux rigidus, left foot (M20.22) Active confirmed Problem Non-pressure chronic ulcer of other part of left foot limited to breakdown of skin (L97.521) Active confirmed Problem Non-pressure chronic ulcer of other part of right foot limited to breakdown of skin (L97.511) Active confirmed Problem Polyneuropathy due to type 2 diabetes mellitus (559149299) Type 2 diabetes mellitus with diabetic polyneuropathy (E11.42) Active confirmed Problem Primary gout (37403763) Idiopathic gout, 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) Active confirmed Problem Polyneuropathy due to diabetes mellitus type I (770972247) Type 1 diabetes mellitus with diabetic polyneuropathy (E10.42) Active confirmed Plan Of Treatment Pending Test Test Name Order Date *Uric Acid, Serum 09/13/2021 *Sedimentation Rate-Westergren X ray : Foot, left 3V 09/13/2021 X ray : Foot, left 3V 07/17/2016 45085-Ahfrfvps Plate 07/17/2016 61052- Debride <25 sq cm 2021 92723- Debride <25 sq cm 08/01/2016 30112-FJWM SKIN LESIONS, 2 TO 4 09/30/19 21 74668-AZOB SKIN LESIONS, 2 TO 4 12/21/19 21 16939-GCSM SKIN LESIONS, 2 TO 4 03/14/20 21 24560-KOZB SKIN LESIONS, 2 TO 4 05/26/19 22 Insurance Providers Payer Name Payer Address Payer Phone Subscriber Number Group Number Insured Name Patient Relationship to Insured Coverage Start Date Coverage End Date [facility] 65 Medicare Preferred [address] [place] [address] [id number] HirenHarry londono Self - patient is the insured Medical (General) History Medical History History ICD Code Arthritis Back,Hip,and Knee pain Cancer Chicken pox Diverticulosis High blood pressure Joint implants/screws Cataracts Heart disease type II diabetes Incontinence Surgical History Surgery Date(Month/Year) prostate 2014 Left Knee Replacement 03/01/2016 skin cancer 07/2020 hernia skin cancer removal 12/07/2020 Hospitalization History Reason Date(Month/Year) [facility]- 3 day stay- Sugar was 1000 11/07
--- OUTSIDE RECORDS SUMMARY | 2025-01-06 15:20 | XMS_ITS | Clinical Summary ---
Author Organization [address] Address [address] [place] [address] Phone Care Team Providers Care Settlement Technician Name Role Phone David Elena MD Primary Care Provider [phone] Social History Tobacco Use Types Packs/Day Years [...] series) 2018 Cholesterol Screening (Lipid Panel) 03/12/2022 Falls Risk Assessment 03/12/2022 Medicare Annual Wellness Visit 03/12/2022 Social Influencers of Health Screening 03/12/2022 Diabetes: Annual Urine Albumin-Creatinine Ratio (uACR) 02/09/2024 Diabetes: Blood Sugar Contro l Test (HGBA1C) 02/09/2024 Depression Screening 04/09/2024 COVID-19 Vaccine (2 - 2024-2 6 season) 2024 03/17/2021 Influenza Vaccine (#1) 2024 01/25/2021 Diabetes: Annual GFR (Glomer ular Filtration Rate) [...] mmol/L LAB CHEMISTRY METHOD 02/12/2024 10:18 AM [facility] Potassium 3.8 3.5 - 5.5 mmol/L LAB CHEMISTRY METHOD 02/12/2024 10:18 AM [facility] Chloride 106 96 - 110 mmol/L LAB CHEMISTRY METHOD 02/12/2024 10:18 AM [facility] CO2 32 21 - 32 mmol/L LAB CHEMISTRY METHOD 02/12/2024 10:18 AM [facility] Anion Gap 5 3 - 11 LAB CHEMISTRY METHOD 02/12/2024 10:18 AM [facility] Glucose 96 70 - 100 mg/dL LAB CHEMISTRY METHOD 02/12/2024 10:18 AM [facility] BUN 15 5 - 25 mg/dL LAB CHEMISTRY METHOD 02/12/2024 10:18 AM [facility] Creatinine 0.93 0.70 - 1.30 mg/dL LAB CHEMISTRY METHOD 02/12/2024 10:18 AM [facility] eGFR 83 >=60 mL/min/1. 73m2 LAB CHEMISTRY METHOD 02/12/2024 10:18 AM [facility] Comment:Calculation based on the Chronic Kidney Disease Epidemiology Collaboration (CKD-EPI) equation refit without adjustment for race. BUN/Creatinine Ratio 16.1 LAB CHEMISTRY METHOD 02/12/2024 10:18 AM [facility] Calcium 9.3 8.5 - 10.5 mg/dL LAB CHEMISTRY METHOD 02/12/2024 10:18 AM [facility] AST (SGOT) 14 10 - 42 unit/L LAB CHEMISTRY METHOD 02/12/2024 10:18 AM [facility] ALT (SGPT) 20 10 - 60 unit/L LAB CHEMISTRY METHOD 02/12/2024 10:18 AM [facility] Alkaline Phosphatase 121 42 - 121 unit/L LAB CHEMISTRY METHOD 02/12/2024 10:18 AM [facility] Total Protein 6.4 6.0 - 8.0 g/dL LAB CHEMISTRY METHOD 02/12/2024 10:18 AM [facility] Albumin 2.8(L) 3.2 - 5.0 g/dL LAB CHEMISTRY METHOD 02/12/2024 10:18 AM [facility] Total Bilirubin 1.3 0.0 - 1.4 mg/dL LAB CHEMISTRY METHOD 02/12/2024 10:18 AM [facility] Blood Venous blood specimen / Unknown Venipuncture / Unknown 02/12/2024 6:36 AM EST 02/12/2024 9:23 AM EST Ligia Rodriguez MD LAB BLOOD ORDERABLES Fin al Result [facility] [address] [place] [address], from Last 3 Months or Most Recently Relevant to Health Maintenance Insurance [employer] [place] MEDICARE ADVANTAGE Advance Directives Documents on File Type Date Recorded Patient Branch Service Associate Expl anation Health Care Decision (hx) 05/14/2012 AD [place] DIRECTIVE Health Care Decision (hx) 05/14/2012 AD [place] DIRECTIVE Health Care Decision (hx) 05/14/2012 AD SATNA DIRECTIVE Health Care Decision (hx) 04/24/2012 AD [...] DIRECTIVE Health Care Decision (hx) 04/24/2012 AD SNATA DIRECTIVE Health Care Decision (hx) 04/24/2012 AD SANTA DIRECTIVE Care Teams Settlement Technician Relationship Specialty Start Date End Date David Elena MD [address] [place] [address] [address] [facility] [place] [address] PCP - General Internal Medicine 10/22/17
--- OUTSIDE RECORDS SUMMARY | 2025-01-06 15:20 | XMS_ITS | Encounter Summary ---
Author Organization [facility] Address [address] [place] [address] Care Team Providers Care Infantry Senior Sergeant Name Role Phone David Elena MD Primary Care Provider [phone] Encounter Details Date Type Department Care Team (Late st Contact Info) Description 02/09/2024 Lab Requisition [facility] - Main Lab [address] [facility] [place] [address] Ligia Rodriguez MD [address] [facility] [address] [place], [place] [address] Hyperlipidemia, unspecified; Type 2 diabetes mellitus without [...] Travel phlebotomy fee (02/12/2024 6:36 AM EST) [facility] TRAVEL PHLEBOTOMY FEE Completed 02/13/2024 2:02 PM EST [facility] Blood Venous blood specimen / Unknown 02/12/2024 6:36 AM EST 02/13/2024 1:56 PM EST us Ligia Rodriguez MD LAB BLOOD ORDERABLES Fin al Result [facility] [address] [place] [address], * (ABNORMAL) Comprehensive metabolic panel (02/12/2024 6:36 AM EST) [facility] Sodium 143 133 - 145 mmol/L LAB CHEMISTRY METHOD 02/12/2024 10:18 AM [facility] Potassium 3.8 3.5 - 5.5 mmol/L LAB CHEMISTRY METHOD 02/12/2024 10:18 AM [facility] Chloride 106 96 - 110 mmol/L LAB CHEMISTRY METHOD 02/12/2024 10:18 AM [facility] CO2 32 21 - 32 mmol/L LAB CHEMISTRY METHOD 02/12/2024 10:18 AM [facility] Anion Gap 5 3 - 11 LAB CHEMISTRY METHOD 02/12/2024 10:18 AM [facility] Glucose 96 70 - 100 mg/dL LAB CHEMISTRY METHOD 02/12/2024 10:18 AM [facility] BUN 15 5 - 25 mg/dL LAB CHEMISTRY METHOD 02/12/2024 10:18 AM [facility] Creatinine 0.93 0.70 - 1.30 mg/dL LAB CHEMISTRY METHOD 02/12/2024 10:18 AM [facility] eGFR 83 >=60 mL/min/1. 73m2 LAB CHEMISTRY METHOD 02/12/2024 10:18 AM [facility] Comment:Calculation based on the Chronic Kidney Disease Epidemiology Collaboration (CKD-EPI) equation refit without adjustment for race. BUN/Creatinine Ratio 16.1 LAB CHEMISTRY METHOD 02/12/2024 10:18 AM [facility] Calcium 9.3 8.5 - 10.5 mg/dL LAB CHEMISTRY METHOD 02/12/2024 10:18 AM [facility] AST (SGOT) 14 10 - 42 unit/L LAB CHEMISTRY METHOD 02/12/2024 10:18 AM [facility] ALT (SGPT) 20 10 - 60 unit/L LAB CHEMISTRY METHOD 02/12/2024 10:18 AM [facility] Alkaline Phosphatase 121 42 - 121 unit/L LAB CHEMISTRY METHOD 02/12/2024 10:18 AM [facility] Total Protein 6.4 6.0 - 8.0 g/dL LAB CHEMISTRY METHOD 02/12/2024 10:18 AM [facility] Albumin 2.8(L) 3.2 - 5.0 g/dL LAB CHEMISTRY METHOD 02/12/2024 10:18 AM [facility] Total Bilirubin 1.3 0.0 - 1.4 mg/dL LAB CHEMISTRY METHOD 02/12/2024 10:18 AM [facility] Blood Venous blood specimen / Unknown Venipuncture / Unknown 02/12/2024 6:36 AM EST 02/12/2024 9:23 AM EST us Ligia Rodriguez MD LAB BLOOD ORDERABLES Fin al Result [facility] [address] [place] [address], * (ABNORMAL) Complete blood count (02/12/2024 6:36 AM EST) [facility] Signature WBC 6.4 4.8 - 10.8 K/mcL LAB HEMETOLOGY METHOD 02/12/2024 9:52 AM EST [facility] RBC 4.50 4.50 - 5.50 M/mcL LAB HEMETOLOGY METHOD 02/12/2024 9:52 AM [facility] Hemoglobin 12.6(L) 13.5 - 17.5 g/dL LAB HEMETOLOGY METHOD 02/12/2024 9:52 AM [facility] Hematocrit 40.6(L) 42.0 - 54.0 % LAB HEMETOLOGY METHOD 02/12/2024 9:52 AM [facility] MCV 90.8 79.0 - 98.0 FL LAB HEMETOLOGY METHOD 02/12/2024 9:52 AM [facility] MCH 28.2 27.0 - 32.0 pcg LAB HEMETOLOGY METHOD 02/12/2024 9:52 AM [facility] MCHC 31.0(L) 32.0 - 37.0 g/dL LAB HEMETOLOGY METHOD 02/12/2024 9:52 AM [facility] RDW 15.4(H) 11.0 - 15.0 % LAB HEMETOLOGY METHOD 02/12/2024 9:52 AM [facility] Platelets 231 130 - 400 K/mcL LAB HEMETOLOGY METHOD 02/12/2024 9:52 AM [facility] MPV 9.3 7.0 - 11.0 FL LAB HEMETOLOGY METHOD 02/12/2024 9:52 AM [facility] NRBC 0.0 <1.0 % LAB HEMETOLOGY METHOD 02/12/2024 9:52 AM EST [facility] NRBC Absolute 0.00 <0.10 K/mcL LAB HEMETOLOGY METHOD 02/12/2024 9:52 AM EST [facility] Blood Venous blood specimen / Unknown Venipuncture / Unknown 02/12/2024 6:36 AM EST 02/12/2024 9:23 AM EST us Ligia Rodriguez MD LAB BLOOD ORDERABLES Fin al Result [facility] [address] [place] [address], documented in this encounter Visit Diagnoses Diagnosis Hyperlipidemia, unspecified Type 2 diabetes mellitus without complications (CMS/HCC V24, CMS/HCC V28) Anemia, unspecified Chronic diastolic (congestive) heart failure (CMS/HCC V24, CMS/HCC V28) Unspecified atrial fibrillation ([facility] V24, CMS/HCC V28) documented in this encounter Care Teams Infantry Senior Sergeant Relationship Specialty Start Date End Date David Elena MD [address] [place] [address] Dr [address] [facility] [place] [address] PCP - General Internal Medicine 10/22/17 documented as of this encounter
--- OUTSIDE RECORDS SUMMARY | 2025-01-06 15:20 | XMS_ITS | Clinical Summary ---
Author Organization [facility] Address [address] [place] [address] Phone Care Team Providers Care Hearing Impaired Teacher Name Role Phone David Elena MD Primary Care Provider [phone] Allergies Active Allergy Reactions Criticality Noted Date [...] rigidus 12/28/2021 Primary gout 12/28/2021 Atherosclerosis of ramona arteries of the extrem ities 05/18/2021 Diabetes [...] [place] [address] [place] [address] Michael Benton MD from Last 3 Months [...] patient's age to complete this topic Insurance [place] [address] [facility] Care Teams Hearing Impaired Teacher Relationship Specialty Start Date End Date David Elena MD [address] [place], [place] PCP - General 04/19/20
== END ==
LOC: HO.CARD 13:58
PROVIDERS: PCP Internal Medicine; Visit Provider Internal Medicine
DX: I77.810 Thoracic aortic ectasia (principal)
CPT/HCPCS: 93306; Q9957

== ENCOUNTER → 2025-01-06 14:02 | Outpatient (BNV) | payer MEDICARE, SELFPAY | PROVIDERS: PCP Internal Medicine; Visit Provider Internal Medicine | DX: I34.81 Nonrheumatic mitral (valve) annulus calcification (principal); I77.810 Thoracic aortic ectasia; I35.8 Other nonrheumatic aortic valve disorders | CPT/HCPCS: 93306 ==

== ENCOUNTER 2025-02-17 08:36 | Outpatient (REF) | payer MEDICARE, SELFPAY ==
--- OUTSIDE RECORDS SUMMARY | 2024-08-05 04:00 | XMS_ITS ---
Author Organization [facility] Address [address] [place] [address] Care Team Providers Care Social Media Editor Name Role Phone David Elena Primary Care Provider Manuel Reza Unavailable [phone] Mercedes Hoover [phone] Encounters Encounter Location Date Provider Diagnosis [address] [address] 08/05/2024 Mercedes Hoover Plan Of Treatment No Information Progress Notes * PAULYRyleyHarry LDOB: (79 yo M)Acc No.[id number]:08/05/2024 Progress Note Patient: Harry MCINTYRE Provider: Brooke Hoover DPM :1945 A ge:79 Y S ex:Male Date:08/05/2024 Address:[address] [place], [place] [id number] Pcp:David Elena Subjective: * Chief Complaints: * * Medical History: Objective: * Vitals: Assessment: Plan: * Treatment: * Images: * The named appointment provid er may or may not be the originator of this progress note, and it is not deemed complete until electronically signed by the appointment provider. Sign off status: Pending * Provider: Brooke Hoover DPM Date: 0 08/05/2024 Generated for Dany wilde/Willem/eTransmitting on: 1 04/19/2024 08:46 AM EST
--- OUTSIDE RECORDS SUMMARY | 2025-02-17 08:47 | XMS_ITS | Encounter Summary ---
Author Organization [facility] Address [address] [place] [address] Care Team Providers Care Broom Maker Name Role Phone David Elena MD Primary Care Provider [phone] Encounter Details Date Type Department Care Team (Late st Contact Info) Description 02/09/2024 Lab Requisition [facility] - Main Lab [address] [facility] [place] [address] Ligia Rodriguez MD [address] [facility] 1 [place], [place] [id number] Hyperlipidemia, unspecified; Type 2 diabetes mellitus without [...] Travel phlebotomy fee (02/12/2024 6:36 AM EST) [facility] TRAVEL PHLEBOTOMY FEE Completed 02/13/2024 2:02 PM EST [facility] Blood Venous blood specimen / Unknown 02/12/2024 6:36 AM EST 02/13/2024 1:56 PM EST us Ligia Rodriguez MD LAB BLOOD ORDERABLES Fin al Result [facility] [address] [place] [address], * (ABNORMAL) Comprehensive metabolic panel (02/12/2024 6:36 AM EST) [facility] Sodium 143 133 - 145 mmol/L LAB CHEMISTRY METHOD 02/12/2024 10:18 AM [facility] Potassium 3.8 3.5 - 5.5 mmol/L LAB CHEMISTRY METHOD 02/12/2024 10:18 AM [facility] Chloride 106 96 - 110 mmol/L LAB CHEMISTRY METHOD 02/12/2024 10:18 AM [facility] CO2 32 21 - 32 mmol/L LAB CHEMISTRY METHOD 02/12/2024 10:18 AM [facility] Anion Gap 5 3 - 11 LAB CHEMISTRY METHOD 02/12/2024 10:18 AM [facility] Glucose 96 70 - 100 mg/dL LAB CHEMISTRY METHOD 02/12/2024 10:18 AM [facility] BUN 15 5 - 25 mg/dL LAB CHEMISTRY METHOD 02/12/2024 10:18 AM [facility] Creatinine 0.93 0.70 - 1.30 mg/dL LAB CHEMISTRY METHOD 02/12/2024 10:18 AM [facility] eGFR 83 >=60 mL/min/1. 73m2 LAB CHEMISTRY METHOD 02/12/2024 10:18 AM [facility] Comment:Calculation based on the Chronic Kidney Disease Epidemiology Collaboration (CKD-EPI) equation refit without adjustment for race. BUN/Creatinine Ratio 16.1 LAB CHEMISTRY METHOD 02/12/2024 10:18 AM [facility] Calcium 9.3 8.5 - 10.5 mg/dL LAB CHEMISTRY METHOD 02/12/2024 10:18 AM [facility] AST (SGOT) 14 10 - 42 unit/L LAB CHEMISTRY METHOD 02/12/2024 10:18 AM [facility] ALT (SGPT) 20 10 - 60 unit/L LAB CHEMISTRY METHOD 02/12/2024 10:18 AM [facility] Alkaline Phosphatase 121 42 - 121 unit/L LAB CHEMISTRY METHOD 02/12/2024 10:18 AM [facility] Total Protein 6.4 6.0 - 8.0 g/dL LAB CHEMISTRY METHOD 02/12/2024 10:18 AM [facility] Albumin 2.8(L) 3.2 - 5.0 g/dL LAB CHEMISTRY METHOD 02/12/2024 10:18 AM [facility] Total Bilirubin 1.3 0.0 - 1.4 mg/dL LAB CHEMISTRY METHOD 02/12/2024 10:18 AM [facility] Blood Venous blood specimen / Unknown Venipuncture / Unknown 02/12/2024 6:36 AM EST 02/12/2024 9:23 AM EST us Ligia Rodriguez MD LAB BLOOD ORDERABLES Fin al Result [facility] [address] [place] [address], * (ABNORMAL) Complete blood count (02/12/2024 6:36 AM EST) [facility] Signature WBC 6.4 4.8 - 10.8 K/mcL LAB HEMETOLOGY METHOD 02/12/2024 9:52 AM EST [facility] RBC 4.50 4.50 - 5.50 M/mcL LAB HEMETOLOGY METHOD 02/12/2024 9:52 AM [facility] Hemoglobin 12.6(L) 13.5 - 17.5 g/dL LAB HEMETOLOGY METHOD 02/12/2024 9:52 AM [facility] Hematocrit 40.6(L) 42.0 - 54.0 % LAB HEMETOLOGY METHOD 02/12/2024 9:52 AM [facility] MCV 90.8 79.0 - 98.0 FL LAB HEMETOLOGY METHOD 02/12/2024 9:52 AM [facility] MCH 28.2 27.0 - 32.0 pcg LAB HEMETOLOGY METHOD 02/12/2024 9:52 AM [facility] MCHC 31.0(L) 32.0 - 37.0 g/dL LAB HEMETOLOGY METHOD 02/12/2024 9:52 AM [facility] RDW 15.4(H) 11.0 - 15.0 % LAB HEMETOLOGY METHOD 02/12/2024 9:52 AM [facility] Platelets 231 130 - 400 K/mcL LAB HEMETOLOGY METHOD 02/12/2024 9:52 AM [facility] MPV 9.3 7.0 - 11.0 FL LAB HEMETOLOGY METHOD 02/12/2024 9:52 AM [facility] NRBC 0.0 <1.0 % LAB HEMETOLOGY METHOD 02/12/2024 9:52 AM EST [facility] NRBC Absolute 0.00 <0.10 K/mcL LAB HEMETOLOGY METHOD 02/12/2024 9:52 AM EST [facility] Blood Venous blood specimen / Unknown Venipuncture / Unknown 02/12/2024 6:36 AM EST 02/12/2024 9:23 AM EST us Ligia Rodriguez MD LAB BLOOD ORDERABLES Fin al Result [facility] [address] [place] [address], documented in this encounter Visit Diagnoses Diagnosis Hyperlipidemia, unspecified Type 2 diabetes mellitus without complications (CMS/HCC V24, CMS/HCC V28) Anemia, unspecified Chronic diastolic (congestive) heart failure (CMS/HCC V24, CMS/HCC V28) Unspecified atrial fibrillation ([facility] V24, CMS/HCC V28) documented in this encounter Care Teams Broom Maker Relationship Specialty Start Date End Date David Elena MD [address] [place] [address] Dr [address] [facility] [place] [address] PCP - General Internal Medicine 10/22/17 documented as of this encounter
--- OUTSIDE RECORDS SUMMARY | 2025-02-17 08:47 | XMS_ITS | Patient Health Record ---
Author Organization [facility] Address [address] [place] [address] Care Team Providers Care Senior Credit Analyst Name Role Phone David Elena Primary Care Provider Manuel Reza Unavailable [phone] Mercedes Hoover Unavailable [phone] Allergies Allergen (clinical drug ingredient) Drug/Non Drug [...] atherosclerosis of arteries of lower limbs (disorder) (94747099551182281 ) Unspecified atherosclerosis of [place] arteries of extremities, bilateral legs (I70.203) Active confirmed Problem Localized, primary osteoarthritis of the ankle and/or foot (152575827) Primary osteoarthritis, right ankle and foot (M19.071) Active confirmed Problem Localized, primary osteoarthritis of the ankle and/or foot (312561806) Primary osteoarthritis, left ankle and foot (M19.072) Active confirmed Problem Acquired hallux rigidus (8719582) Hallux rigidus, left foot (M20.22) Active confirmed Problem Non-pressure chronic ulcer of other part of left foot limited to breakdown of skin (L97.521) Active confirmed Problem Non-pressure chronic ulcer of other part of right foot limited to breakdown of skin (L97.511) Active confirmed Problem Polyneuropathy due to type 2 diabetes mellitus (293482211) Type 2 diabetes mellitus with diabetic polyneuropathy (E11.42) Active confirmed Problem Primary gout (44779939) Idiopathic gout, 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) Active confirmed Problem Polyneuropathy due to diabetes mellitus type I (754063163) Type 1 diabetes mellitus with diabetic polyneuropathy (E10.42) Active confirmed Plan Of Treatment Pending Test Test Name Order Date *Uric Acid, Serum 09/13/2021 *Sedimentation Rate-Westergren X ray : Foot, left 3V 09/13/2021 X ray : Foot, left 3V 07/17/2016 06575-Vdsbqmzn Plate 07/17/2016 80830- Debride <25 sq cm 2021 30518- Debride <25 sq cm 08/01/2016 27043-XREM SKIN LESIONS, 2 TO 4 09/30/19 21 37620-IHHJ SKIN LESIONS, 2 TO 4 12/21/19 21 31097-LHWL SKIN LESIONS, 2 TO 4 03/14/20 21 57512-HNCC SKIN LESIONS, 2 TO 4 05/26/19 22 Insurance Providers Payer Name Payer Address Payer Phone Subscriber Number Group Number Insured Name Patient Relationship to Insured Coverage Start Date Coverage End Date [employer] 65 Medicare Preferred [address] [place] [address] [id number] Harry Mccullough Self - patient is the insured Medical (General) History Medical History History ICD Code Arthritis Back,Hip,and Knee pain Cancer Chicken pox Diverticulosis High blood pressure Joint implants/screws Cataracts Heart disease type II diabetes Incontinence Surgical History Surgery Date(Month/Year) prostate 2014 Left Knee Replacement 03/01/2016 skin cancer 07/2020 hernia skin cancer removal 12/07/2020 Hospitalization History Reason Date(Month/Year) [facility] 3 day stay- Sugar was 1000 11/07
--- OUTSIDE RECORDS SUMMARY | 2025-02-17 08:47 | XMS_ITS | Clinical Summary ---
Author Organization [address] Address [address] [place] [address] Phone Care Team Providers Care Service Parts Coordinator Name Role Phone David Elena MD Primary Care Provider [phone] Social History Tobacco Use Types Packs/Day Years [...] mmol/L LAB CHEMISTRY METHOD 02/12/2024 10:18 AM [facility] Potassium 3.8 3.5 - 5.5 mmol/L LAB CHEMISTRY METHOD 02/12/2024 10:18 AM [facility] Chloride 106 96 - 110 mmol/L LAB CHEMISTRY METHOD 02/12/2024 10:18 AM [facility] CO2 32 21 - 32 mmol/L LAB CHEMISTRY METHOD 02/12/2024 10:18 AM [facility] Anion Gap 5 3 - 11 LAB CHEMISTRY METHOD 02/12/2024 10:18 AM [facility] Glucose 96 70 - 100 mg/dL LAB CHEMISTRY METHOD 02/12/2024 10:18 AM [facility] BUN 15 5 - 25 mg/dL LAB CHEMISTRY METHOD 02/12/2024 10:18 AM [facility] Creatinine 0.93 0.70 - 1.30 mg/dL LAB CHEMISTRY METHOD 02/12/2024 10:18 AM [facility] eGFR 83 >=60 mL/min/1. 73m2 LAB CHEMISTRY METHOD 02/12/2024 10:18 AM [facility] Comment:Calculation based on the Chronic Kidney Disease Epidemiology Collaboration (CKD-EPI) equation refit without adjustment for race. BUN/Creatinine Ratio 16.1 LAB CHEMISTRY METHOD 02/12/2024 10:18 AM [facility] Calcium 9.3 8.5 - 10.5 mg/dL LAB CHEMISTRY METHOD 02/12/2024 10:18 AM [facility] AST (SGOT) 14 10 - 42 unit/L LAB CHEMISTRY METHOD 02/12/2024 10:18 AM [facility] ALT (SGPT) 20 10 - 60 unit/L LAB CHEMISTRY METHOD 02/12/2024 10:18 AM [facility] Alkaline Phosphatase 121 42 - 121 unit/L LAB CHEMISTRY METHOD 02/12/2024 10:18 AM [facility] Total Protein 6.4 6.0 - 8.0 g/dL LAB CHEMISTRY METHOD 02/12/2024 10:18 AM [facility] Albumin 2.8(L) 3.2 - 5.0 g/dL LAB CHEMISTRY METHOD 02/12/2024 10:18 AM [facility] Total Bilirubin 1.3 0.0 - 1.4 mg/dL LAB CHEMISTRY METHOD 02/12/2024 10:18 AM [facility] Blood Venous blood specimen / Unknown Venipuncture / Unknown 02/12/2024 6:36 AM EST 02/12/2024 9:23 AM EST Ligia Rodriguez MD LAB BLOOD ORDERABLES Fin al Result [facility] [address] [place] [address], from Last 3 Months or Most Recently Relevant to Health Maintenance Insurance [employer] - [place] MEDICARE ADVANTAGE Advance Directives Documents on File Type Date Recorded Patient Commercial Correspondent Expl anation Health Care Decision (hx) 05/14/2012 [...] (hx) 04/24/2012 [employer] [facility] DIRECTIVE Care Teams Service Parts Coordinator Relationship Specialty Start Date End Date David Elena MD [address] [place] [address] [address] [facility] [place] [address] PCP - General Internal Medicine 10/22/17
[2025-02-17 08:54] LABS: MANUAL DIFF FLAG NO
[2025-02-17 09:40] LABS: Hematocrit 50.1 % (42.0-52.0); Hemoglobin 15.8 g/dl (14.0-18.0); Imm Gran Abs Auto 0.05 X10*3/uL (0.00-0.03); Imm Gran Pct Auto 0.8 % (0.0-0.4); Lymphocytes Absolute Auto 0.9 X10*3/uL (1.2-4.9); Mean Corpuscular HGB Conc 31.5 g/dl (31.0-36.0); Mean Corpuscular Hemoglobin 28.8 pg (27.0-33.0); Mean Corpuscular Volume 91.3 fL (80.0-98.0); NRBC Abs Auto 0.000 X10*3/uL (0.0-0.012); NRBC Pct Auto 0.0 /100WBC (0.0-0.2); Platelet Count 229 X10*3/uL (160-400); Red Blood Count 5.49 X10*6/uL (4.60-5.80); White Blood Count 6.4 X10*3/uL (4.8-10.8)
[2025-02-17 10:01] LABS: Alanine Aminotransferase 23 U/L (0-40); Albumin Level 4.5 g/dL (3.5-5.0); Alkaline Phosphatase 103 U/L (39-117); Anion Gap 16 (12-20); Aspartate Amino Transferase 30 U/L (5-37); Blood Urea Nitrogen 23 mg/dL (9-16); Calcium 9.6 mg/dL (8.4-10.2); Carbon Dioxide 27 mmol/L (22-29); Chloride 103 mmol/L (96-108); Cholesterol 130 mg/dL (<200); Estimated Glomerular Filt Rate 49; HDL Cholesterol 33 mg/dL (>40); Magnesium 2.4 mg/dL (1.6-2.6); Potassium 3.9 mmol/L (3.3-5.1); Sodium 142 mmol/L (135-145); Total Protein 8.4 g/dL (6.5-8.0); Triglycerides 189 mg/dL (<150)
[2025-02-17 10:02] LABS: NT Pro B Type Natriuretic Pept 182.0 pg/mL (<300)
[2025-02-17 10:24] LABS: Free T4 (Free Thyroxine) 0.89 ng/dL (0.71-1.85); Thyroid Stimulating Hormone 9.34 uIU/mL (0.32-4.0)
[2025-02-17 10:27] LABS: Folate 7.0 ng/mL (> or = 4.0); Vitamin B12 853 pg/mL (200-900)
== END 2025-02-17 08:37 | disposition home or self-care (01) ==
LOC: HO.LAB 08:36
PROVIDERS: PCP Internal Medicine; Visit Provider Internal Medicine
DX: E11.65 Type 2 diabetes mellitus with hyperglycemia (principal); R79.89 Other specified abnormal findings of blood chemistry; E78.00 Pure hypercholesterolemia, unspecified
CPT/HCPCS: 36415; 80053; 80061; 82306; 82607; 82746; 83036; 83735; 83880; 84439; 84443; 85025; 86015

== ENCOUNTER 2025-02-26 09:55 | Outpatient (AMB) | payer MEDICARE, SELFPAY ==
[2025-02-26 09:59] VITALS: BP 114/70; PULSE 66; O2SAT 90; BMI 35.3
--- NOTE | 2025-02-26 09:59 | MHC.PC.OV ---
Vital Signs 02/26/25 09:59 Height 6 ft 4 in Weight 290 lb BMI 35.3 BP 114/70 Blood Pressure Location Lt brachial Position Sitting Pulse 66 Pulse Source Pulse Oximeter Pulse Oximetry (%) 90 L Oxygen Delivery Method Room Air Intake Visit Reasons: 3mth f/u Allergies milk Allergy (Unknown, Verified 02/26/25 10:00) Unknown tramadol Adverse Reaction (Intermediate, Verified 02/26/25 10:00) tremors salt Allergy (Unknown, Uncoded 02/26/25 10:00) unknown Medication List - Last Reconciled 02/26/25 by David Elena MD acetaminophen ER (Tylenol 8 Hour) 650 mg PO Q8H albuterol sulfate 90 mcg/actuation (Ventolin HFA) 2 puffs inhalation Q6H PRN allopurinol 300 mg (3 x 100 mg) PO DAILY amiodarone 200 mg PO DAILY apixaban (Eliquis) 5 mg PO BID atorvastatin 10 mg PO BEDTIME 30 days bisoprolol fumarate 5 mg PO DAILY 90 days blood-glucose sensor (AzulStar G7 Sensor device) As directed calcium carbonate 600 mg PO DAILY cholecalciferol (vitamin D3) (Vitamin D3) 25 mcg PO DAILY cyanocobalamin (vitamin B-12) (Vitamin B-12) 500 mcg PO DAILY dapagliflozin propanediol (Farxiga) 5 mg PO DAILY eplerenone 25 mg PO DAILY 90 days flash glucose scanning reader (AirDroidsStyle Henry 14 Day [place]) As directed flash glucose sensor (FreeStyle Henry 14 Day Sensor kit) As directed insulin degludec (Tresiba FlexTouch U-100 insulin) 16 units (0.16 mL) subcut BEDTIME levothyroxine (Synthroid) 25 mcg PO DAILY lidocaine 5% 1 appl topical BID PRN lisinopril 5 mg PO DAILY Novolog FlexPen U-100 Insulin (insulin aspart U-100) 5 units (0.05 mL) subcut TID NS pen needle, diabetic USE DIRECTED TO INJECT INSULIN FOUR TIMES PER DAY [rollator As directed] [BETHANY LIFT As directed] sennosides-docusate sodium 8.6-50 mg (Senna Plus) 2 tab-caps (2 x 8.6-50 mg) PO DAILY sertraline 25 mg PO DAILY torsemide 20 mg (2 x 10 mg) PO DAILY Tobacco use date assessed: 07/29/24 Fall risk assessment: No Falls in past year Last assessed Fall Risk: 02/26/25 Dental Screening Dental Screen Date: 07/29/24 HPI 3mth f/u HPI Details L hip replacement planned Dr. Clancy will see March [facility] Medical History (Updated 02/26/25 @ 18:31 by David Elena MD) Impacted cerumen of left ear Phlebitis Chronic kidney disease Gout Tubular adenoma of colon DKA (diabetic ketoacidosis) Cardiomyopathy Congestive heart failure Asthma Obesity (BMI 30-39.9) Pulmonary nodule Skin cancer Renal mass Obstructive sleep apnea Atrial fibrillation Tubular adenoma of colon Prostate cancer Osteoarthritis of knee GERD (gastroesophageal reflux disease) Prostatism Cholelithiasis Diabetes mellitus type II, uncontrolled Surgical History History of left hip replacement History of left knee replacement History of prostatectomy H/O left inguinal hernia repair S/P laparoscopic surgery Hx of tonsillectomy H/O arthroscopic knee surgery Family History Father CAD (coronary artery disease) Hypertension CVD (cardiovascular disease) Mother Breast cancer Spleen cancer Brother Diabetes Social History Housing: House Alcohol intake: current Alcohol intake frequency: holidays/special occasions only Patient Tobacco Use Status: Never used Tobacco Tobacco use type: Cigarette e-Cigarette/Vaping Use: Never Used Second Hand Smoke Exposure: No service: No Current occupational status: retired Cognitive needs: Yes (walker) Hearing needs: No Vision needs: Yes Questionnaire Thrive Questionnaire Date Thrive assessed: 11/25/24 I am a: Patient What is your living situation today?: I have a steady place to live Within the past 12 months, did the food you bought not last and you didn't have the money to get more?: Never true Within the past 12 months, did you worry whether your food would run out before you got money to buy more?: Never true Do you have trouble paying for medicines?: No Do you have trouble getting transportation to medical appointments?: No Do you have trouble paying your heating and electricity bill?: No Do you have trouble taking care of your child, family member or friend?: No Do you have trouble with day-to-day activities such as bathing, preparing meals, shopping, managing finances, etc.?: No Are you currently unemployed and looking for a job?: No Are you interested in more education?: No Please select the resources that you would like help with: None Currently or been in a relationship where the following occur: I choose not to answer THRIVE Score: 0 DELROY-7 AMB Questionnaire DELROY-7 Date DELROY - 7 assessed: 04/29/24 Source: Developed by Drs. Nicholas Dennis, Catherine Mireles, Anuj Magallanes and colleagues, with an educational qing from [employer]. Physical exam (Primary Care) Vital Signs: Last Vital Signs Pulse 66 02/26/25 09:59 BP 114/70 02/26/25 09:59 Pulse Ox 90 L 02/26/25 09:59 Oxygen Delivery Method Room Air 02/26/25 09:59 BMI result Body Mass Index 35.3 Tobacco/Smoking Status: Tobacco use Status Tobacco use date assessed 07/29/24 02/26/25 10:01 Patient Tobacco Use Status Never used Tobacco 02/26/25 10:01 Tobacco use type Cigarette 02/26/25 10:01 e-Cigarette/Vaping Use Never Used 02/26/25 10:01 Thrive Assessment: Date of Thrive Assessment Date Thrive assessed 11/25/24 02/26/25 10:01 Currently or been in a relationship where the following occur: I choose not to answer Const General: alert; No acute distress Eyes Conjunctivae: conjunctivae normal Resp Auscultation: clear to auscultation bilaterally Cardio Rate: regular rate Rhythm: regular rhythm GI Inspection: Yes normal to inspection Extrem General: Yes normal to inspection and No edema Office Procedures Flu Questionnaire Does the patient have a severe egg allergy?: No Does the patient have severe life threatening allergies?: No Does the patient have a fever or illness today?: No Has the patient ever had Guillain-[place] Syndrome?: No Has the patient ever had any past reaction to a flu shot?: No Immunizations Fluarix [id number] (PF) 45 mcg (15 mcg x 3)/0.5 mL IM syringe Performing Provider: David Elena MD [facility] Administered by: Trinidad Beth CMA on 02/26/25 10:30 Dose Route Admin Location Dispensed Lot Number Expiration Date NDC Resource Engineer 0.5 mL IM Left Deltoid 0.5 mL [id number] 10/06/25 [id number] [employer] VIS Given Date VIS Provided VIS Publication Date 02/26/25 Single Vaccine 24 Eligibility Eligibility Date Funding Source Not [facility] Eligible 02/26/25 Private Coding Level of Care Code Est Pt Level 4 (75747) Complex visit Add On G2211 Diagnoses Paroxysmal atrial fibrillation I48.0 Atrial fibrillation type: paroxysmal Chronic systolic congestive heart failure I50.22 Heart failure type: systolic Heart failure chronicity: chronic Ascending aorta dilatation I77.810 Hypercholesterolemia E78.00 Type 2 diabetes mellitus with hyperglycemia, without long-term current use of insulin E11.65 Diabetes mellitus requirements engineer insulin use: without requirements engineer use Acquired hypothyroidism E03.9 Hypothyroidism type: acquired Obesity (BMI 30-39.9) E66.9 Gastroesophageal reflux disease without esophagitis K21.9 Esophagitis presence: without esophagitis Stage 3a chronic kidney disease N18.31 Chronic kidney disease stage 3 subtype: stage 3a (GFR 45-59) Obstructive sleep apnea G47.33 Generalized anxiety disorder F41.1 Slow transit constipation K59.01 Constipation type: slow transit constipation Assessment & Plan Assessment & Plan (1) Atrial fibrillation: Comment: December 2017, ejection fraction 20-25% doctor JOSS, yang EF 25% dilated aorta [address] Riccardo Banegas congestive heart failure program cardioverted February 2018 Code(s): I48.91 - Unspecified atrial fibrillation Category: Medical Qualifiers: Atrial fibrillation type: paroxysmal Qualified Code(s): I48.0 - Paroxysmal atrial fibrillation Plan: Patient is on amiodarone 200 mg once a day and on anticoagulation Eliquis 5 mg twice a day. Renal function just taken February 2025 (2) Congestive heart failure: Code(s): I50.9 - Heart failure, unspecified Category: Medical Qualifiers: Heart failure type: systolic Heart failure chronicity: chronic Qualified Code(s): I50.22 - Chronic systolic (congestive) heart failure Plan: Renal function stable on eplerenone 25 mg once a day Farxiga 5 mg once a day lisinopril 5 mg once a day torsemide 20 mg once a day and on bisoprolol 5 mg once a day (3) Ascending aorta dilatation: Comment: 09/2023 4.2 cm, January 2025 4.2 cm Code(s): I77.810 - Thoracic aortic ectasia Category: Medical Plan: Continue to monitor January 2025 at 4.2 cm the same. (4) Hypercholesterolemia: Code(s): E78.00 - Pure hypercholesterolemia, unspecified Category: Medical Plan: Avoid fried foods, chicken skin, eggs, butter margarine, pastries and meat. Be it pork or beef they have a lot of cholesterol LDL goal of less than 70 on atorvastatin 10 mg at bedtime February 2025 last blood work (5) Type 2 diabetes mellitus with hyperglycemia: Comment: Dr[facility] [place] Code(s): E11.65 - Type 2 diabetes mellitus with hyperglycemia Category: Medical Qualifiers: Diabetes mellitus requirements engineer insulin use: without requirements engineer use Qualified Code(s): E11.65 - Type 2 diabetes mellitus with hyperglycemia Plan: Decrease the amount of carbohydrate intake, pasta, bread, rice and potatoes are all sugar and that is aside from all the sweet stuff, remember that fruits are good but they are Sweet also. Hemoglobin A1c goal of less than 7.0. Patient is on Tresiba 16 units at bedtime NovoLog sliding scale (6) Hypothyroid: Code(s): E03.9 - Hypothyroidism, unspecified Category: Medical Qualifiers: Hypothyroidism type: acquired Qualified Code(s): E03.9 - Hypothyroidism, unspecified Plan: Started on thyroid medication and will advised to get blood work in about 6 weeks' time (7) Obesity (BMI 30-39.9): Code(s): E66.9 - Obesity, unspecified Category: Medical Plan: Concern because noted weight gain of 8 lb (8) GERD (gastroesophageal reflux disease): Code(s): K21.9 - Gastro-esophageal reflux disease without esophagitis Category: Medical Qualifiers: Esophagitis presence: without esophagitis Qualified Code(s): K21.9 - Gastro-esophageal reflux disease without esophagitis Plan: Avoid the foods that causes that usually spicy foods, tomato products, juices, coffee, soda and foods that your sensitive to. After eating do not lie down, allow 3-4 hours before in lie down. And keep the head of bed above 30 degrees to avoid the acid from going up. (9) CKD (chronic kidney disease) stage 3, GFR 30-59 ml/min: Code(s): N18.30 - Chronic kidney disease, stage 3 unspecified Category: Medical Qualifiers: Chronic kidney disease stage 3 subtype: stage 3a (GFR 45-59) Qualified Code(s): N18.31 - Chronic kidney disease, stage 3a Plan: Avoid NSAIDs keep well hydrated concern of weight gain (10) Obstructive sleep apnea: Comment: December 2017 cannot tolerate CPAP 01/2020 Code(s): G47.33 - Obstructive sleep apnea (adult) (pediatric) Category: Medical Plan: Patient can not tolerate CPAP (11) Generalized anxiety disorder: Code(s): F41.1 - Generalized anxiety disorder Category: Medical Plan: Continue with present medication (12) Constipation: Code(s): K59.00 - Constipation, unspecified Category: Medical Qualifiers: Constipation type: slow transit constipation Qualified Code(s): K59.01 - Slow transit constipation Plan: Three rules for constipation 1. Diet need to have a high fiber diet less of meat 2. Increase oral fluids 3. Exercise Orders: Orders Influenza [id number] Immunization Today Z23 - Encounter for immunization Medications: New sennosides-docusate sodium 8.6-50 mg (Senna Plus) 2 tab-caps (2 x 8.6-50 mg) PO DAILY 60 caps 6RF K59.00 - Constipation, unspecified Refilled insulin degludec (Tresiba FlexTouch U-100 insulin) 16 units (0.16 mL) subcut BEDTIME 15 mL 12RF E11.65 - Type 2 diabetes mellitus with hyperglycemia
== END 2025-02-26 10:45 | disposition home or self-care (01) ==
LOC: HO.HMCH 09:56
PROVIDERS: PCP Internal Medicine; Visit Provider Internal Medicine
DX: I48.0 Paroxysmal atrial fibrillation (principal); I50.22 Chronic systolic (congestive) heart failure; E11.65 Type 2 diabetes mellitus with hyperglycemia; N18.31 Chronic kidney disease, stage 3a; I77.810 Thoracic aortic ectasia; E78.00 Pure hypercholesterolemia, unspecified; E03.9 Hypothyroidism, unspecified; E66.9 Obesity, unspecified; K21.9 Gastro-esophageal reflux disease without esophagitis; G47.33 Obstructive sleep apnea (adult) (pediatric); F41.1 Generalized anxiety disorder; K59.01 Slow transit constipation; Z23 Encounter for immunization

== ENCOUNTER → 2025-02-26 09:55 | Outpatient (BNVA) | payer MEDICARE, SELFPAY | PROVIDERS: PCP Internal Medicine; Visit Provider Internal Medicine | DX: Z23 Encounter for immunization (principal); I48.0 Paroxysmal atrial fibrillation; I50.22 Chronic systolic (congestive) heart failure; I77.810 Thoracic aortic ectasia; E78.00 Pure hypercholesterolemia, unspecified; E11.65 Type 2 diabetes mellitus with hyperglycemia; E11.22 Type 2 diabetes mellitus with diabetic chronic kidney disease; N18.31 Chronic kidney disease, stage 3a; E03.9 Hypothyroidism, unspecified; E66.9 Obesity, unspecified; K21.9 Gastro-esophageal reflux disease without esophagitis; G47.33 Obstructive sleep apnea (adult) (pediatric); F41.1 Generalized anxiety disorder; K59.01 Slow transit constipation | CPT/HCPCS: 90471; 90656; 99212 ==